=== PATIENT | female | born 1990 | race Caucasian/White ===

== ENCOUNTER 2018-09-28 13:04 | Emergency (ER) | payer OTHER, SELFPAY ==
[2018-09-28 13:05] VITALS: BP 165/81; PULSE 70; RESP 20; TEMP 36.9; O2SAT 97; BMI 37.4
[2018-09-28 13:29] LABS: Mucous, Urine 0 SEEN /hpf (<or=2+)
[2018-09-28] MEDS: Ondansetron 4 MG/2 ML Vial IV (13:31)
[2018-09-28] MEDS: 0.9% Normal Saline 1,000 ML 125 ML IV (13:31)
[2018-09-28] MEDS: Morphine 4 MG/ML Syringe IV (13:31)
[2018-09-28 13:32] VITALS: BP 137/82; PULSE 74; RESP 16; O2SAT 98
[2018-09-28 13:39] LABS: Absolute Neutrophil Count 9.1 X10^3/uL (2.0-7.7); Basophil# 0.02 X10^3/uL; Basophil% 0.2 % (0-1); Eosinophil# 0.14 X10^3/uL; Eosinophils% 1.2 % (0-5); Hematocrit 38.9 % (37-47); Hemoglobin 12.8 g/dl (12.0-15.0); Lymphocyte % 15.2 % (19-41); Mean Corp Hgb Conc 32.9 g/gl (32-36); Mean Corpuscular Hgb 27.9 pg (27.0-32.0); Mean Corpuscular Volume 84.7 fL (81-99); Mean Platelet Vol. 10.3 fl (6.2-12.0); Monocyte% 6.8 % (0-10); Neutrophil # 9.06 X10^3/uL (2.7-7.7); Neutrophil % 76.3 % (47-70); POSITIVE COUNT NO; POSITIVE DIFFERENTIAL NO; POSITIVE MORPHOLOGY NO; Platelet Count 188 K/mm3 (150-450); RBC Distribution Width CV 13.6 % (11.6-14.6); RBC Distribution Width SD 41.4 fl (35.1-43.9); Red Blood Count 4.59 M/mm3 (4.2-5.4); White Blood Count 11.9 K/mm3 (4.4-11.0)
[2018-09-28 13:42] LABS: Color, Urine Yellow (Yellow); Glucose, Dipstick Normal (Normal); Ketone-Dipstick Negative (Negative); Leukocyte Esterase-Dipstick 25 /ul (Negative); Nitrite-Dipstick Negative (Negative); Occult Blood-Urine 25 /ul (Negative); Protein-Dipstick 15 mg/dl (Negative); Urine Bilirubin Dipstick Negative (Negative); Urine Clarity Sl. Cloudy (Clear); Urine Urobilinogen Normal (Normal)
[2018-09-28 13:46] LABS: Anion Gap 10 (5-15); BUN 5 mg/dL (7-18); BUN/Creat Ratio 7.2 RATIO (10-20); Calcium,Total 8.6 mg/dL (8.5-10.1); Chloride 107 mmol/L (98-107); Creatinine, Serum 0.69 mg/dL (0.55-1.02); EST Glomerular Filtration Rate 108 mL/min (>60); Est Glom Filt Rate - Afr Amer 130 mL/min (>60); Estimated Creatinine Clearance 114.65 ml/min; Glucose 97 mg/dL (74-106); Potassium 3.6 mmol/L (3.5-5.1); Sodium Level 138 mmol/L (136-145)
[2018-09-28 13:47] LABS: Bacteria 1+ /hpf (None Seen); Red Blood Cells-Urine 0-5 SEEN /hpf (0-5); Squamous Epithelial Cells - UA 0-5 SEEN /hpf (5-10); White Blood Cells 0-5 SEEN /hpf (0-5)
[2018-09-28] MEDS: HYDROmorphone 1 MG/ML Syringe IV ×2 (14:10→14:46)
--- NOTE | 2018-09-28 14:28 | ED.DCSUM_ITS ---
- ER Visit Summary Date of Service: 09/28/18 Chief Complaint: [Flank pain] History of Present Illness: The patient is a 27 F [presents to the emergency department complaint of flank pain that started 2 hours ago. Patient states the pain came on suddenly and was severe. Patient did vomit with it. Currently rates it an 8 or 9 out of 10. Patient states that she is 19 weeks . Patient denies any vaginal bleeding. She continues to have nausea. Patient does not have a history of kidney stones. She denies any urinary symptoms. She denies any fever. She denies recent illness.] Physical Examination: [HEENT-PERRLA, EOMI. Cranial nerves II through XII grossly intact. TMs clear. Mucous membranes moist. No adenopathy. Patient standing against the bed and seems uncomfortable as I enter the room. Cardiovascular-regular rate and rhythm without murmur or ectopy Lungs-clear to auscultation, chest wall stable without crepitus or subcu emphysema Abdomen-normoactive bowel sounds, soft. Patient has some tenderness over right lower quadrant with some guarding. There is no rebound, rigidity, or perineal signs. Mild CVA tenderness on the right. Extremities-intact ?4, normal range of motion, normal pulses, atraumatic] Test Results: CBC with differential obtained showed a white count 11.9, hemoglobin 12.8, hematocrit 39, platelets 188. Chemistries unremarkable. Urinalysis showed 25 leukocyte esterase, 0-5 WBCs, 0-5 RBCs, +1 bacteria.] heart tones were 136. Emergency Department Course and Treatment: [Patient initially medicated with Zofran and morphine and she continued to have significant pain. Patient was given a milligram of Dilaudid. Patient continues to complain of pain.] Treatment Plan: [I discussed with patient that clinically I felt she is presenting with signs and symptoms of kidney stone however given her state at this point recommended against CT imaging given risk of radiation exposure to the unborn child. She understands that I will not be able to tell her definitively this size of the kidney stone or if she will be able to pass the stone on her own. Case was discussed with EXTRACTOR OPERATOR on-call Dr. Dolores Craig who will admit patient for symptomatic management and if this patient does not improve clinically may require further imaging such as possible CT scan to evaluate further. I do not suspect patient has acute appendicitis as this is more consistent with kidney stone presentation.] Disposition: [Admit] Impression: [Intractable flank pain-suspect kidney stone with colic] This note was generated with [employer] dictation software. It may contain incorrect words, spelling, and punctuation that were not noted in review of the chart prior to signing ED Disposition - Plan for ED Patient: Chief Complaint: Flank Pain Referrals: Care Physician,No Primary [Primary Care Provider] -
--- NOTE | 2018-09-28 14:30 | NURSING ---
WP OBS INTRACTABLE FLANK PAIN RACHEL
[2018-09-28 14:41] VITALS: BP 139/79; PULSE 86; RESP 18; O2SAT 97
== END 2018-09-28 14:54 | disposition short-term general hospital (02) ==
LOC: ED 13:47
PROVIDERS: Emergency Provider Emergency Medicine
DX: O26.892 Other specified pregnancy related conditions, second trimester (principal); R10.31 Right lower quadrant pain; Z3A.19 19 weeks gestation of pregnancy; Z87.442 Personal history of urinary calculi
CPT/HCPCS: 80048; 81001; 85025; 96361; 96374; 96375; 96376; 99282; J7030; A4216; J2405

== ENCOUNTER 2018-09-28 15:00 | Outpatient (CLI) | payer OTHER, SELFPAY ==
[2018-09-28 15:09] VITALS: BMI 37.4
--- NOTE | 2018-09-28 15:42 | PCM.HPOB.BLA ---
- Problem List (1) Microscopic hematuria Status: Acute (2) Flank pain, acute Status: Acute (3) 19 weeks gestation of Status: Chronic (4) Nausea and vomiting Status: Acute History and Physical Date of Admission: 09/28/18 Radha is a 27 y.o. G 2 P 1 who presents to [facility] ED with abrupt onsest approx 1pm of severe cramping flank pain, nausea. no h/o this type of pain in past. She is 18 6/7 wk EGA with LMP of 05-19-18 She had a prior C/S for FTP and plans to at with this . She was initially medicated with Zofran and Morphine in the ED, and continued with significant pain . Given 1 mg Dilaudid in ED also with continued pain and nausea. To OB dept for inpatient management, IV hydration and pain medications, antiemetics. ALLERGIES: Latex, Swelling and rash, Penicillin, Rash MEDICATIONS HISTORY: vitamin REVIEW OF SYSTEMS: GENERAL - Denies fever, or chills SKIN - Denies skin changes EYES - Denies visual changes EARS - Denies difficulty hearing NOSE - Denies nasal congestion or bleeding MOUTH - Denies sore throat or difficulty swallowing NECK - Denies pain or swelling RESPIRATORY - Denies shortness of breath or wheezing CARDIOVASCULAR - Denies palpitations or chest pain GASTROINTESTINAL - nausea MUSCULOSKELETAL - Denies joint or muscle pain NEUROLOGICAL - Denies localized numbness or weakness PSYCHIATRIC - Denies depression or anxiety ENDOCRINE - Denies heat or cold intolerance, weight loss or gain HEMATO-IMMUNOLOGIC - Denies excesive bleeding with cuts PAST HISTORY: Breast/Ovarian/Colon Cancers - Denies Infections - Chicken pox childhood Illnesses - allergies Accidents - no injuries of consequence History of Abnormal PAPS - Denies Hospitalizations - see surgery SURGICAL HISTORY: 1. 10/10/2012 MENSTRUAL HISTORY: LMP Known?- DefiniteAmount/Duration - 5 days, Regularity - Regular, Frequency - monthly days, LMP - 05/19/18, Age Onset Menarche - 10 PAST PREGNANCIES: Total Pregnancies - 2; Full Term Pregnancies - 1; Premature - 0; Abortions, Induced - 0; Abortions, Spontaneous - 0; Ectopics - 0; Multiple Births - 0; Living Children - 1 FAMILY HISTORY: Father - Ischemic heart disease; Father - Hypertension; SOCIAL HISTORY: Alcohol Use - drinks occasionally not while Smoking - used to smoke but quit Diet - balanced Diet Lifestyle - moderate stress lifestyle and Exercise - minimal Seat Belt Use - always Employer - [employer] ([place]) 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 Drug Use - denies use of street drugs Sexual Activity - Residence - lives with parents Hours Worked - 40 hours per week Spouse-Sig Other Name - Kenneth Wellington Spouse-Sig Other Occupation - [employer] -- [employer] Spouse-Sig Other Phone No - [phone] cell Children Name(s) - Richar(12) Control - PHYSICAL EXAMINATION BP- 139/79 Weight- 105.2 kg Height- 65.00 inch CONSTITUTIONAL - NAD, well nourished, and well developed SKIN - No rash, lesions, or ulcers HEENT - Normocephalic, PERRLA, EOMI NECK - no nodes, no nuchal rigidity and thyroid normal size and texture LYMPH NODES - Palpation of lymph nodes in neck and groins within normal limits LUNGS - CTA x2 without wheezes, crackles or rales CARDIAC - Regular rate and rhythm without rubs, murmurs, or gallops BREAST - no dominant masses, no tenderness, no axillary adenopathy, no nipple discharge and no skin changes ABDOMEN - Without hepatosplenomegaly, distention, masses, rebound, or guarding; normal bowel sounds, no hernias EXTREMITIES - No edema or calf tenderness NEUROLOGICAL - Cranial nerves II-XII grossly intact PSYCHIATRIC - A and O to time, place, person, mood and affect LABS: CBC WBC 11.9, hemoglobin 12.8, hematocrit 39, platelets 188. Chemistries unremarkable. Urinalysis showed 25 leukocyte esterase, 0-5 WBCs, 0-5 RBCs, +1 bacteria.] heart tones were 136. in ED Emergency Department Course and Treatment: [Patient initially ASSESSMENT: 1. Flank pain , colicky 2. 18 6/7 wk EGA 3. Microscopic hematuria PLAN BY DIAGNOSIS: 1. Flank pain , colicky Likely urelithiasis. 2. 18 6/7 wk EGA 3. Microscopic hematuria Admit for IV hydration and pain control Strain urine for stones Consider CT or sono of kidneys if persistent symptoms to better dx The visit was approximately 25 minutes in length with most of the time spent in discussion and counseling.
[2018-09-28] MEDS: Lactated Ringers 1,000 ML 500 ML IV (15:48)
--- NOTE | 2018-09-28 15:48 | HP.PCM_ITS ---
- Problem List (1) Microscopic hematuria Status: Acute (2) Flank pain, acute Status: Acute (3) 19 weeks gestation of Status: Chronic (4) Nausea and vomiting Status: Acute History and Physical Date of Admission: 09/28/18 Radha is a 27 y.o. G 2 P 1 who presents to [facility] ED with abrupt onsest approx 1pm of severe cramping flank pain, nausea. no h/o this type of pain in past. She is 18 6/7 wk EGA with LMP of 05-19-18 She had a prior C/S for FTP and plans to at with this . She was initially medicated with Zofran and Morphine in the ED, and continued with significant pain . Given 1 mg Dilaudid in ED also with continued pain and nausea. To OB dept for inpatient management, IV hydration and pain medications, antiemetics. ALLERGIES: Latex, Swelling and rash, Penicillin, Rash MEDICATIONS HISTORY: vitamin REVIEW OF SYSTEMS: GENERAL - Denies fever, or chills SKIN - Denies skin changes EYES - Denies visual changes EARS - Denies difficulty hearing NOSE - Denies nasal congestion or bleeding MOUTH - Denies sore throat or difficulty swallowing NECK - Denies pain or swelling RESPIRATORY - Denies shortness of breath or wheezing CARDIOVASCULAR - Denies palpitations or chest pain GASTROINTESTINAL - nausea MUSCULOSKELETAL - Denies joint or muscle pain NEUROLOGICAL - Denies localized numbness or weakness PSYCHIATRIC - Denies depression or anxiety ENDOCRINE - Denies heat or cold intolerance, weight loss or gain HEMATO-IMMUNOLOGIC - Denies excesive bleeding with cuts PAST HISTORY: Breast/Ovarian/Colon Cancers - Denies Infections - Chicken pox childhood Illnesses - allergies Accidents - no injuries of consequence History of Abnormal PAPS - Denies Hospitalizations - see surgery SURGICAL HISTORY: 1. 10/10/2012 MENSTRUAL HISTORY: LMP Known?- DefiniteAmount/Duration - 5 days, Regularity - Regular, Frequency - monthly days, LMP - 05/19/18, Age Onset Menarche - 10 PAST PREGNANCIES: Total Pregnancies - 2; Full Term Pregnancies - 1; Premature - 0; Abortions, Induced - 0; Abortions, Spontaneous - 0; Ectopics - 0; Multiple Births - 0; Living Children - 1 FAMILY HISTORY: Father - Ischemic heart disease; Father - Hypertension; SOCIAL HISTORY: Alcohol Use - drinks occasionally not while Smoking - used to smoke but quit Diet - balanced Diet Lifestyle - moderate stress lifestyle and Exercise - minimal Seat Belt Use - always 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 Drug Use - denies use of street drugs Sexual Activity - Residence - lives with parents Hours Worked - 40 hours per week Spouse-Sig Other Name - Kenneth Wellington Spouse-Sig Other Occupation - [employer] -- [employer] Spouse-Sig Other Phone No - [phone] cell Children Name(s) - Richar(12) Control - PHYSICAL EXAMINATION BP- 139/79 Weight- 105.2 kg Height- 65.00 inch CONSTITUTIONAL - NAD, well nourished, and well developed SKIN - No rash, lesions, or ulcers HEENT - Normocephalic, PERRLA, EOMI NECK - no nodes, no nuchal rigidity and thyroid normal size and texture LYMPH NODES - Palpation of lymph nodes in neck and groins within normal limits LUNGS - CTA x2 without wheezes, crackles or rales CARDIAC - Regular rate and rhythm without rubs, murmurs, or gallops BREAST - no dominant masses, no tenderness, no axillary adenopathy, no nipple discharge and no skin changes ABDOMEN - Without hepatosplenomegaly, distention, masses, rebound, or guarding; normal bowel sounds, no hernias EXTREMITIES - No edema or calf tenderness NEUROLOGICAL - Cranial nerves II-XII grossly intact PSYCHIATRIC - A and O to time, place, person, mood and affect LABS: CBC WBC 11.9, hemoglobin 12.8, hematocrit 39, platelets 188. Chemistries unremarkable. Urinalysis showed 25 leukocyte esterase, 0-5 WBCs, 0- 5 RBCs, +1 bacteria.] heart tones were 136. in ED Emergency Department Course and Treatment: [Patient initially ASSESSMENT: 1. Flank pain , colicky 2. 18 6/7 wk EGA 3. Microscopic hematuria PLAN BY DIAGNOSIS: 1. Flank pain , colicky Likely urelithiasis. 2. 18 6/7 wk EGA 3. Microscopic hematuria Admit for IV hydration and pain control Strain urine for stones Consider CT or sono of kidneys if persistent symptoms to better dx The visit was approximately 25 minutes in length with most of the time spent in discussion and counseling.
--- NOTE | 2018-09-28 16:07 | NURSING ---
FHT done with Doppler-145
[2018-09-28] MEDS: proMETHazine 25 MG/ML Syringe 12.5 MG IV (16:21)
[2018-09-28] MEDS: Lactated Ringers 1,000 ML 150 ML IV ×2 (17:42→23:08)
[2018-09-29] MEDS: Lactated Ringers 1,000 ML 150 ML IV (05:32)
--- NOTE | 2018-09-29 07:45 | PCM.PROGNOTE ---
Patient Problems: Active and Suspected Problems Microscopic hematuria (Acute) Flank pain, acute (Acute) Nausea and vomiting (Acute) Subjective: HD#2 No kidney stone noted on straining urine. States pain much better 3/10 last pain med taken at approx [place] Demerol. No other concerns voiced. has f/u appt in ofc in 3 d for 20 wk care and sono. - Physical Exam General: Alert, Oriented x3, Cooperative, No apparent distress HEENT: Atraumatic Neck: Supple Abdomen: Soft, Gravid - NO CVAT. No pain to percussion of lower back (where pain stated) Neurological: Cranial nerves II-XII grossly intact Psych/Mental Status: Normal Affect Weight: 105.2 kg Body Mass Index (BMI) 37.4 Intake and Output for Last 24 Hours 09/28/18 09/28/18 09/29/18 00:59 23:59 23:59 Intake Total 1158 / 1158 Output Total 1125 / 1125 Balance 33 / 33 Medical Necessity - Tobacco Use Smoking Status: Never smoker Assessment/Plan All Active Problems Microscopic hematuria (Acute) Flank pain, acute (Acute) Nausea and vomiting (Acute) HD#2 R flank pain suggestive of kidney stone. No imaging done at this point. Pain improved. Last Demerol at approx [place] No N/V Begin po OxyIR for severe pain prn. Reg diet. Home if pain controlled by OxyIR and tylenol. F/U in ofc as planned for next appt and sono, and to f/u on probable kidney stone pain. IF pain inc and not controlled on PO meds, consider CT and urologist consult.
--- NOTE | 2018-09-29 07:53 | PCM.DC ---
- Discharge Diagnoses Current Active Problems: Current Active and Chronic Problems Microscopic hematuria (Acute) Flank pain, acute (Acute) 19 weeks gestation of (Chronic) Nausea and vomiting (Acute) Reason(s) for Visit for Discharge Instructions: Left flank pain. Kidney stone. You will use the following diet at home:: No restrictions Discharge Activity: May not drive while taking narcotic pain medications., May Shower, May Take a Tub Bath May resume sexual activity in: No Restrictions Call your doctor if you observe: Uncontrolled pain Additional Instructions: Take Percocet (contains Tylenol) 1-2 tabs every 6 hr prn moderate to severe pain. Keep very well hydrated to avoid recurrent stones. Allergies/Adverse Reactions: Allergies latex Allergy (Verified 09/28/18 15:13) Swelling Penicillins Allergy (Verified 09/28/18 15:13) Rash Medications to take at Discharge Vits [Prenatabs FA ] 1 tablet PO DAILY 09/28/18 Oxycodone HCl/Acetaminophen [Percocet 5-325] 1 - 2 tablet PO Q4H PRN PRN 7 Days #20 tablet 09/29/18 The following prescriptions were given: Oxycodone HCl/Acetaminophen [Percocet 5-325] 1 - 2 tablet PO Q4H PRN PRN 7 Days #20 tablet PRN Reason: Mod-Severe Pain (4-09/03) Primary Care Physician: Care Physician,No Primary [Primary Care Provider] - Test Results: Test results from this visit will be discussed in further detail at your follow-up appointment, if applicable. Please Follow Up With: Myke Calvo MD - [phone] When: on 10/02/18 as planned Proposed Discharge Date: 09/29/18
--- NOTE | 2018-09-29 07:56 | DCINST_ITS ---
- Discharge Diagnoses Current Active Problems: Current Active and Chronic Problems Microscopic hematuria (Acute) Flank pain, acute (Acute) 19 weeks gestation of (Chronic) Nausea and vomiting (Acute) Reason(s) for Visit for Discharge Instructions: Left flank pain. Kidney stone. You will use the following diet at home:: No restrictions Discharge Activity: May not drive while taking narcotic pain medications., May Shower, May Take a Tub Bath May resume sexual activity in: No Restrictions Call your doctor if you observe: Uncontrolled pain Additional Instructions: Take Percocet (contains Tylenol) 1-2 tabs every 6 hr prn moderate to severe pain. Keep very well hydrated to avoid recurrent stones. Allergies/Adverse Reactions: Allergies latex Allergy (Verified 09/28/18 15:13) Swelling Penicillins Allergy (Verified 09/28/18 15:13) Rash Medications to take at Discharge Vits [Prenatabs FA ] 1 tablet PO DAILY 09/28/18 Oxycodone HCl/Acetaminophen [Percocet 5-325] 1 - 2 tablet PO Q4H PRN PRN 7 Days #20 tablet 09/29/18 The following prescriptions were given: Oxycodone HCl/Acetaminophen [Percocet 5-325] 1 - 2 tablet PO Q4H PRN PRN 7 Days #20 tablet PRN Reason: Mod-Severe Pain (4-09/03) Primary Care Physician: Care Physician,No Primary [Primary Care Provider] - Test Results: Test results from this visit will be discussed in further detail at your follow- up appointment, if applicable. Please Follow Up With: Myke Calvo MD - [phone] When: on 10/02/18 as planned Proposed Discharge Date: 09/29/18
[2018-09-29] MEDS: oxyCODONE 5 MG Tablet PO (08:50)
== END 2018-09-29 12:45 | disposition home or self-care (01) ==
LOC: WPOUT 15:09 → WP 09-30 08:03
PROVIDERS: Referring Provider Obstetrics & Gynecology; Visit Provider Obstetrics & Gynecology
DX: O26.892 Other specified pregnancy related conditions, second trimester (principal); R10.9 Unspecified abdominal pain; O21.9 Vomiting of pregnancy, unspecified; O99.89 Other specified diseases and conditions complicating pregnancy, childbirth and the puerperium; R31.29 Other microscopic hematuria; Z3A.19 19 weeks gestation of pregnancy; Z87.891 Personal history of nicotine dependence
CPT/HCPCS: 96361 ×19; 96374; 96375; 96376 ×2; 59050; 99218; J7120; A4216; G0378

== ENCOUNTER → 2018-11-27 15:06 | Outpatient (CLI) | payer OTHER, SELFPAY ==
[2018-11-27 16:11] LABS: Hematocrit 34.7 % (37-47); Hemoglobin 11.2 g/dl (12.0-15.0); Mean Corp Hgb Conc 32.3 g/gl (32-36); Mean Corpuscular Hgb 26.8 pg (27.0-32.0); Mean Platelet Vol. 10.2 fl (6.2-12.0); Platelet Count 183 K/mm3 (150-450); RBC Distribution Width CV 13.6 % (11.6-14.6); RBC Distribution Width SD 41.5 fl (35.1-43.9); Red Blood Count 4.18 M/mm3 (4.2-5.4); White Blood Count 11.4 K/mm3 (4.4-11.0)
[2018-11-27 16:18] LABS: Scan Indicated on CBC? Y/N NO
[2018-11-27 16:39] LABS: Glucose Challenge Gest 1H 50g 117 mg/dL (70-140)
== END ==
PROVIDERS: Visit Provider Obstetrics & Gynecology
DX: Z34.83 Encounter for supervision of other normal pregnancy, third trimester (principal)
CPT/HCPCS: 36415; 82950; 85027

== ENCOUNTER 2018-12-30 14:59 | Observation (INO) | payer OTHER, SELFPAY ==
[2018-12-30] VITALS (10 sets, daily range): BP systolic 119–150; BP diastolic 61–86; PULSE 122–141; RESP 20–27; TEMP 37.1–37.8; O2SAT 97–100; BMI 44.6; BMI 44.0; BMI 43.8
--- NOTE | 2018-12-30 15:35 | EKG12_ITS ---
Test Reason : FLU Blood Pressure : / mmHG Vent. Rate : 126 BPM Atrial Rate : 126 BPM P-R Int : 132 ms QRS Dur : 072 ms QT Int : 324 ms P-R-T Axes : 034 051 001 degrees QTc Int : 469 ms Sinus tachycardia Nonspecific T wave abnormality Abnormal ECG Confirmed by SID KENNEDY, MONI ([id number]), content editor KENDRICK VALENTE ([id number]) on 01/05/2019 9:51:20 AM Referred By: YESENIA Confirmed By:MONI LAU MD
--- NOTE | 2018-12-30 15:39 | ED.VISSUMM ---
- ER Visit Summary Date of Service: 12/30/18 Chief Complaint: Influenza History of Present Illness: The patient is a 28 F who is 32 weeks who presents for evaluation after being diagnosed with influenza at urgent care. Patient states 3 days ago she developed fever and achiness. The following day she was feeling somewhat better, and then yesterday she began having fever again, developed cough, shortness of breath and headache. This morning at work she was given IV fluids and sent home. She was given a total of 1500 cc. She followed up at urgent care and was diagnosed with the flu. She was prescribed Tamiflu and last took Tylenol 2 hours ago. 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 Patient currently complains of cough, achiness, shortness of breath, congestion and rhinorrhea, headache. She denies nausea, diarrhea or urinary symptoms. Physical Examination: Vital signs: afebrile, tachycardic, normotensive, no hypoxia on room air General: well nourished, well developed, in no distress Skin: warm, dry, no rash, no pallor HEENT: normocephalic and atraumatic; PERRL, EOMI, moist mucous membranes Cardiovascular: Tachycardic rate and rhythm without murmurs, no peripheral edema, 2+ pulses all distal extremities Respiratory: mild tachypnea, no increased work of breathing, lungs are clear to auscultation bilaterally, no rales, rhonchi or wheezing Abdominal: Abdomen is soft, gravid, nontender with normoactive bowel sounds, no guarding or rebound, no masses MSK: Moves all extremities, no deformities, normal strength Neuro: Awake and alert, oriented ?4. No facial droop, sensation and motor function intact and symmetric Test Results: Abnormal Lab Results 12/30/18 12/30/18 12/30/18 15:15 16:00 16:00 WBC 6.1 RBC 4.37 Hgb 11.6 L Hct 36.7 L MCV 84.0 MCH 26.5 L MCHC 31.6 L RDW 15.1 H RDW Differential 46.3 H Plt Count 155 MPV 10.3 Immature Gran % (Auto) 0.800 Neut % (Auto) 79.1 H Lymph % (Auto) 9.9 L [place] % (Auto) 10.2 H Eos % (Auto) 0.0 Baso % (Auto) 0.0 Absolute Neuts (auto) 4.8 Absolute Lymphs (auto) 0.60 L Total Counted Not Reportable Differential Comment SEE COMMENT Platelet Estimate ADEQUATE RBC Morphology NORM C+C PT 13.2 INR 1.0 APTT 35.1 Sodium Potassium Chloride Carbon Dioxide Anion Gap BUN Creatinine Estim Creat Clear Calc Est GFR (MDRD) Af Amer Est GFR (MDRD) Non-Af BUN/Creatinine Ratio Glucose Lactic Acid Calcium Total Bilirubin AST ALT Alkaline Phosphatase Troponin I Total Protein Albumin Globulin Albumin/Globulin Ratio Urine Color Yellow Urine Clarity Clear Urine pH 6.0 Ur Specific [place] 1.020 Urine Protein 30 H Urine Glucose (UA) Normal Urine Ketones 150 H Urine Occult Blood 10 H Urine Nitrite Negative Urine Bilirubin Negative Urine Urobilinogen 8 H Ur Leukocyte Esterase Negative Urine RBC 0-5 SEEN Urine WBC 0 SEEN Ur Squamous Epith Cells 0-5 SEEN Urine Bacteria 0 SEEN Urine Mucus RARE 12/30/18 12/30/18 16:00 16:00 WBC RBC Hgb Hct MCV MCH MCHC RDW RDW Differential Plt Count MPV Immature Gran % (Auto) Neut % (Auto) Lymph % (Auto) [place] % (Auto) Eos % (Auto) Baso % (Auto) Absolute Neuts (auto) Absolute Lymphs (auto) Total Counted Differential Comment Platelet Estimate RBC Morphology PT INR APTT Sodium 135 L Potassium 3.6 Chloride 106 Carbon Dioxide 19.0 L Anion Gap 10 BUN 4 L Creatinine 0.54 L Estim Creat Clear Calc 139.57 Est GFR (MDRD) Af Amer 173 Est GFR (MDRD) Non-Af 143 BUN/Creatinine Ratio 7.4 L Glucose 83 Lactic Acid 1.1 Calcium 8.0 L Total Bilirubin 0.70 AST 149 H ALT 138 H Alkaline Phosphatase 100 Troponin I < 0.015 Total Protein 6.6 Albumin 2.8 L Globulin 3.8 Albumin/Globulin Ratio 0.7 L Urine Color Urine Clarity Urine pH Ur Specific [place] Urine Protein Urine Glucose (UA) Urine Ketones Urine Occult Blood Urine Nitrite Urine Bilirubin Urine Urobilinogen Ur Leukocyte Esterase Urine RBC Urine WBC Ur Squamous Epith Cells Urine Bacteria Urine Mucus Clinical Impression(s) from Imaging Studies Chest X-Ray 12/30/18 16:30 IMPRESSION: Peribronchial thickening consider atypical infiltrates possible bronchitis. Electronically Signed: Ivana Meng MD at 16:46 EST Tel , Service support , Medications Given Lactated Ringer's () 1,000 mls @ 250 mls/hr IV .Q4H SAKINA Last Admin: 12/30/18 15:50 Dose: 250 mls/hr Azithromycin 500 mg/ Dextrose 255 mls @ 250 mls/hr IV X1 ONE Stop: 12/30/18 19:06 Last Admin: 12/30/18 18:41 Dose: 250 mls/hr Ceftriaxone Sodium (Rocephin) 1 gm in 50 mls @ 100 mls/hr IV X1 ONE Stop: 12/30/18 19:24 Non-Formulary Medication (Loratadine [Claritin]) 10 mg PO DAILY SAKINA Non-Formulary Medication (Oseltamivir Phosphate [Tamiflu]) 75 mg PO DAILY SAKINA Multivit/Folic Acid/Iron (Prenatabs Fa) 1 tablet PO DAILY SAKINA Discontinued Medications Albuterol Sulfate (Ventolin Aerosols) 2.5 mg INHALATION X1 ONE Stop: 12/30/18 18:06 Last Admin: 12/30/18 18:19 Dose: 2.5 mg Emergency Department Course and Treatment: Patient presents for tachycardia and shortness of breath after being diagnosed with influenza today. Patient took her dose of Tamiflu from the prescription she filled this afternoon. Patient was given IV fluids for hydration. EKG showed a sinus tachycardia with nonspecific T wave inversions and no other ischemic changes. CBC showed no significant leukocytosis. No renal dysfunction or electrolyte derangements, however patient had mild elevation of transaminases. Urine was positive for ketones. No asymptomatic bacteriuria noted. Chest x-ray was concerning for possible atypical pneumonia versus bronchitis. Given patient's frequent moist cough, her complaint of shortness of breath, her persistent tachycardia despite IV fluids, and her known diagnosis of influenza, patient was discussed with OB Dr. Craig, who will admit the patient for further treatment of her symptoms and for monitoring. heart rate in the emergency department was 148. Because of the concern for the possible secondary bacterial pneumonia, patient was started on empiric antibiotic coverage with Rocephin and azithromycin. She was also given an albuterol treatment for shortness of breath. Treatment Plan: [] Disposition: [] Impression: Influenza, atypical pneumonia, shortness of breath, third trimester , transaminitis This note was generated with [employer] dictation software. It may contain incorrect words, spelling, and punctuation that were not noted in review of the chart prior to signing ED Disposition - Plan for ED Patient: Disposition: Acute Care [facility]
--- NOTE | 2018-12-30 15:42 | NURSING ---
NO OLD EKGS
[2018-12-30] MEDS: Lactated Ringers 1,000 ML 250 ML IV (15:50)
[2018-12-30 16:11] LABS: Bacteria 0 SEEN /hpf (None Seen); White Blood Cells 0 SEEN /hpf (0-5)
[2018-12-30 16:18] LABS: Color, Urine Yellow (Yellow); Glucose, Dipstick Normal (Normal); Leukocyte Esterase-Dipstick Negative /ul (Negative); Nitrite-Dipstick Negative (Negative); Occult Blood-Urine 10 /ul (Negative); Protein-Dipstick 30 mg/dl (Negative); Urine Bilirubin Dipstick Negative (Negative); Urine Clarity Clear (Clear); Urine Urobilinogen 8 mg/dl (Normal)
[2018-12-30 16:23] LABS: Ketone-Dipstick 150 mg/dl (Negative)
--- NOTE | 2018-12-30 16:23 | ED.RN ---
1530-dr. castillo aware that pt triggered sepsis protocol.
[2018-12-30 16:25] LABS: Mucous, Urine RARE /hpf (<or=2+); Red Blood Cells-Urine 0-5 SEEN /hpf (0-5); Squamous Epithelial Cells - UA 0-5 SEEN /hpf (5-10)
--- NOTE | 2018-12-30 16:30 | RAD_ITS ---
STUDY: X-RAY CHEST REASON FOR EXAM: Female, 28 years old. Fever flu TECHNIQUE: PA and lateral views of the chest. COMPARISON: None. FINDINGS: Interstitial markings are mildly prominent in the perihilar distribution. There is peribronchial thickening suggested on the lateral view. There is no demonstrated pleural abnormality. Normal size heart. Normal mediastinum and jose alejandro. Normal visualized pulmonary arteries. Normal visualized aortic arch and descending thoracic aorta. Normal visualized thoracic spine. Normal visualized ribs, clavicles, and shoulders. There is no demonstrated abnormality of the visualized soft tissue structures of the upper abdomen. RAD/Chest PA and Lateral IMPRESSION: Peribronchial thickening consider atypical infiltrates possible bronchitis. Electronically Signed: Ivana Meng MD at 16:46 EST Tel , Service support ,
[2018-12-30 16:32] LABS: Absolute Neutrophil Count 4.8 X10^3/uL (2.0-7.7); Hematocrit 36.7 % (37-47); Hemoglobin 11.6 g/dl (12.0-15.0); Lymphocyte % 9.9 % (19-41); Mean Corp Hgb Conc 31.6 g/gl (32-36); Mean Corpuscular Hgb 26.5 pg (27.0-32.0); Mean Platelet Vol. 10.3 fl (6.2-12.0); Monocyte# 0.62 X10^3/uL; Monocyte% 10.2 % (0-10); Neutrophil % 79.1 % (47-70); Platelet Count 155 K/mm3 (150-450); RBC Distribution Width CV 15.1 % (11.6-14.6); RBC Distribution Width SD 46.3 fl (35.1-43.9); Red Blood Count 4.37 M/mm3 (4.2-5.4); White Blood Count 6.1 K/mm3 (4.4-11.0)
[2018-12-30 16:37] LABS: ALB/GLOB Ratio 0.7 RATIO (0.9-2.4); AST(SGOT) 149 U/L (15-37); Alanine Aminotransfer ALT/SGPT 138 U/L (13-56); Albumin, Serum 2.8 g/dL (3.2-5.0); Alkaline Phosphatase 100 U/L (45-117); Anion Gap 10 (5-15); BUN 4 mg/dL (7-18); BUN/Creat Ratio 7.4 RATIO (10-20); Chloride 106 mmol/L (98-107); Creatinine, Serum 0.54 mg/dL (0.55-1.02); EST Glomerular Filtration Rate 143 mL/min (>60); Est Glom Filt Rate - Afr Amer 173 mL/min (>60); Estimated Creatinine Clearance 139.57 ml/min; Globulin 3.8 g/dL (2.2-4.2); Glucose 83 mg/dL (74-106); Potassium 3.6 mmol/L (3.5-5.1); Protein, Total 6.6 g/dL (6.4-8.2); Sodium Level 135 mmol/L (136-145)
[2018-12-30 16:39] LABS: Lactic Acid 1.1 mmol/L (0.4-2.0)
[2018-12-30 16:41] LABS: Differential Indicated SCAN CRITERIA MET; POSITIVE COUNT NO; POSITIVE DIFFERENTIAL YES; POSITIVE MORPHOLOGY NO
[2018-12-30 16:46] LABS: Prothrombin Time (Protime)PT. 13.2 SECONDS (11.7-14.9)
[2018-12-30 16:47] LABS: Partial Thromboplast Time 35.1 Seconds (24.1-36.2)
[2018-12-30 18:02] LABS: Platelet Estimate ADEQUATE (ADEQ); Red Cell Morphology NORM C+C NORMAL (NORM C&C)
--- NOTE | 2018-12-30 18:09 | NURSING ---
MED SURG BENEKOS OBS INFLUENZA, SOB, TRANSAMINITIS, PREG 3RD TRIMESTER
[2018-12-30] MEDS: Albuterol 2.5 MG/3 ML VIAL.NEB. INHALATION (18:19)
--- NOTE | 2018-12-30 18:50 | NURSING ---
Pt ambulates to bathroom and has emesis x1. Pt reports nausea better and now back in bed.
--- NOTE | 2018-12-30 19:57 | NURSING ---
Called OB & talked to Kinsey about the non stress test ordered by Dr. Craig for this pt. Kinsey explained that this is approximately a 30 minute test. She is going to talk to Dr. Craig and clarify if she wants heart tones or the non stress test.
[2018-12-30] MEDS: Ceftriaxone 1 GM/50 ML BAG IV (20:30)
--- NOTE | 2018-12-30 20:34 | NURSING ---
Carey ROSS here from OB to perform the test.
[2018-12-30] MEDS: Lactated Ringers 1,000 ML 125 ML IV (20:38)
--- NOTE | 2018-12-30 20:38 | PCM.HPOB.BLA ---
History and Physical Date of Admission: 12/30/18 12/30/2018 Name: RADHA WELLINGTON Age: 28 Date of : 1990 HISTORY OF PRESENT ILLNESS: On 12/30/2018, Radha Wellington, a 28 year old female 1 0 0 0 1, presented for: Radha presents to emergency dept today for evaluation of well being as maternal heart rate was 120-130s She was diagnosed with Influenza A today and given an RX for Tamifu by an urgent care clinic. She has had a fever for 4 days and is now 100.8. She is 32 1/7 wk EGA today. She has also had a sore throat, and congestion. Symptoms started on 12/27/18. Went to get care today. Current symptoms include: cough, achiness, shortness of breath, congestion and rhinorrhea, headache. ALLERGIES: Latex, Swelling and rash, Penicillin, Rash, Latex, Edema, Penicillins and Hives and/or rash MEDICATIONS HISTORY: Patient is also takin. Claritin 10 mg Tablet, 1 po, prn allergies REVIEW OF SYSTEMS: GENERAL - fever, chills SKIN - Denies skin changes EYES - Denies visual changes EARS - Denies difficulty hearing NOSE - Denies nasal congestion or bleeding MOUTH - Denies sore throat or difficulty swallowing NECK - Denies pain or swelling RESPIRATORY - short of breath CARDIOVASCULAR - Denies palpitations or chest pain GASTROINTESTINAL - Denies nausea, vomiting, diarrhea, constipation GENITOURINARY - Denies dysuria, frequency of urination, incontinence of urine MUSCULOSKELETAL - myalgia NEUROLOGICAL - Denies localized numbness or weakness PSYCHIATRIC - Denies depression or anxiety ENDOCRINE - Denies heat or cold intolerance, weight loss or gain HEMATO-IMMUNOLOGIC - Denies excesive bleeding with cuts PAST HISTORY: Breast/Ovarian/Colon Cancers - Denies Infections - Chicken pox childhood Illnesses - allergies Accidents - no injuries of consequence History of Abnormal PAPS - Denies Hospitalizations - see surgery SURGICAL HISTORY: 1. 10/10/2012 MENSTRUAL HISTORY: LMP Known?- DefiniteAmount/Duration - 5 days, Regularity - Regular, Frequency - monthly days, LMP - 05/19/18, Age Onset Menarche - 10 PAST PREGNANCIES: Total Pregnancies - 2; Full Term Pregnancies - 1; Premature - 0; Abortions, Induced - 0; Abortions, Spontaneous - 0; Ectopics - 0; Multiple Births - 0; Living Children - 1 FAMILY HISTORY (OLD): Father: Heart Disease and Hypertension. 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 CBC wnl. LFTs elevated. UA negative for bacteria. Ketones and protein noted. SpGr 1.020 Pulse ox 99% on RA. VITALS: T max 100.1 deg RR 22-24. BPs 146/84 and 129/63. Pulse 120s to 133 ASSESSMENT: 1. Hemophilus Influenzae Infection, Unspecified Site 2. Tachycardia, Unspecified PLAN BY DIAGNOSIS: 1. Hemophilus Influenzae Infection, Unspecified Site, Tachycardia, Unspecified and 32 1/7 wk EGA , Bronchitis. Pt to urgent care earlier in day, dx with influenza A and given RX for Tamiflu.Tachycardia noted. SOB. Sent in to [facility] by urgent care for further evaluation of maternal and well being. Plan NST daily Chest discomfort, SOB and tachycardia noted despite IV fluid given earlier. Admit for supportive care, observation Inhaler prn. Tamiflu to continue. O2 prn. Blood cultures and urine culture sent. 2. Possible Bronchitis Azithromycin 500 mg daily and Rocephin 1 gm IV daily 3. Elevated liver transaminases Repeat labs in am.
--- NOTE | 2018-12-30 20:45 | HP.PCM_ITS ---
History and Physical Date of Admission: 12/30/18 12/30/2018 Name: RADHA WELLINGTON Age: 28 Date of : 1990 HISTORY OF PRESENT ILLNESS: On 12/30/2018, Radha Wellington, a 28 year old female 1 0 0 0 1, presented for: Radha presents to emergency dept today for evaluation of well being as maternal heart rate was 120-130s She was diagnosed with Influenza A today and given an RX for Tamifu by an urgent care clinic. She has had a fever for 4 days and is now 100.8. She is 32 1/7 wk EGA today. She has also had a sore throat, and congestion. Symptoms started on 12/27/18. Went to get care today. Current symptoms include: cough, achiness, shortness of breath, congestion and rhinorrhea, headache. ALLERGIES: Latex, Swelling and rash, Penicillin, Rash, Latex, Edema, Penicillins and Hives and/or rash MEDICATIONS HISTORY: Patient is also takin. Claritin 10 mg Tablet, 1 po, prn allergies REVIEW OF SYSTEMS: GENERAL - fever, chills SKIN - Denies skin changes EYES - Denies visual changes EARS - Denies difficulty hearing NOSE - Denies nasal congestion or bleeding MOUTH - Denies sore throat or difficulty swallowing NECK - Denies pain or swelling RESPIRATORY - short of breath CARDIOVASCULAR - Denies palpitations or chest pain GASTROINTESTINAL - Denies nausea, vomiting, diarrhea, constipation GENITOURINARY - Denies dysuria, frequency of urination, incontinence of urine MUSCULOSKELETAL - myalgia NEUROLOGICAL - Denies localized numbness or weakness PSYCHIATRIC - Denies depression or anxiety ENDOCRINE - Denies heat or cold intolerance, weight loss or gain HEMATO-IMMUNOLOGIC - Denies excesive bleeding with cuts PAST HISTORY: Breast/Ovarian/Colon Cancers - Denies Infections - Chicken pox childhood Illnesses - allergies Accidents - no injuries of consequence History of Abnormal PAPS - Denies Hospitalizations - see surgery SURGICAL HISTORY: 1. 10/10/2012 MENSTRUAL HISTORY: LMP Known?- DefiniteAmount/Duration - 5 days, Regularity - Regular, Frequency - monthly days, LMP - 05/19/18, Age Onset Menarche - 10 PAST PREGNANCIES: Total Pregnancies - 2; Full Term Pregnancies - 1; Premature - 0; Abortions, Induced - 0; Abortions, Spontaneous - 0; Ectopics - 0; Multiple Births - 0; Living Children - 1 FAMILY HISTORY (OLD): Father: Heart Disease and Hypertension. 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 CBC wnl. LFTs elevated. UA negative for bacteria. Ketones and protein noted. SpGr 1.020 Pulse ox 99% on RA. VITALS: T max 100.1 deg RR 22-24. BPs 146/84 and 129/63. Pulse 120s to 133 ASSESSMENT: 1. Hemophilus Influenzae Infection, Unspecified Site 2. Tachycardia, Unspecified PLAN BY DIAGNOSIS: 1. Hemophilus Influenzae Infection, Unspecified Site, Tachycardia, Unspecified and 32 1/7 wk EGA , Bronchitis. Pt to urgent care earlier in day, dx with influenza A and given RX for Tamiflu.Tachycardia noted. SOB. Sent in to [facility] by urgent care for further evaluation of maternal and well being. Plan NST daily Chest discomfort, SOB and tachycardia noted despite IV fluid given earlier. Admit for supportive care, observation Inhaler prn. Tamiflu to continue. O2 prn. Blood cultures and urine culture sent. 2. Possible Bronchitis Azithromycin 500 mg daily and Rocephin 1 gm IV daily 3. Elevated liver transaminases Repeat labs in am.
--- NOTE | 2018-12-30 21:23 | NURSING ---
2039 NST started Pt has a temp of 99.4 bp 120/56 p 125 via monitor and pulse ox 95% on room air Baseline fhr 160 with moderate variability with 15x15 accels or greater. 2049 pt coughing and fhr went as high as 185 at 2101 fhr baseline returned to 160 moderate variability continues, pt denies contractions. 2113 T99.4 bp 124/59 pt's heart rate 126 and pulse ox on room air at 95% this update was called to
[2018-12-30] MEDS: Oseltamivir Phosphate 75 MG Capsule PO (22:47)
[2018-12-31] VITALS (8 sets, daily range): BP systolic 123–131; BP diastolic 59–79; PULSE 104–113; RESP 16–24; TEMP 36.7–37.4; O2SAT 96–97
[2018-12-31] MEDS: Lactated Ringers 1,000 ML 125 ML IV ×2 (04:30→16:58)
[2018-12-31 06:15] LABS: AST(SGOT) 87 U/L (15-37); Alanine Aminotransfer ALT/SGPT 112 U/L (13-56); Albumin, Serum 2.4 g/dL (3.2-5.0); Alkaline Phosphatase 89 U/L (45-117); Bilirubin, Direct 0.26 mg/dL (0.00-0.30); Globulin 3.5 g/dL (2.2-4.2); Protein, Total 5.9 g/dL (6.4-8.2)
--- NOTE | 2018-12-31 08:24 | PN.OBGYN_ITS ---
Subjective: HD # 2 32 2/7 wk EGA influenza A Elevated transaminases Admitted last pm for inpt management of flu . States feeling a little better. no nausea and thinks that was due to Tamiflu on empty stomach. States less SOB today but Inc SOB with any movement out of bed. Objective: NST last PM : Good variability. accels noted. - Physical Exam General: Alert, Oriented x3, Cooperative - cough noted. HEENT: Atraumatic Neck: Supple Abdomen: Gravid Skin: No rashes Neurological: Cranial nerves II-XII grossly intact Psych/Mental Status: Normal Affect Vital Signs Temp Pulse Resp BP Pulse Ox 99.3 F H 109 H 24 H 126/79 H 97 12/31/18 02:14 12/31/18 02:14 12/31/18 02:14 12/31/18 02:14 12/31/18 02:14 Oxygen Delivery Method Room Air Weight: 119.5 kg Body Mass Index (BMI) 43.8 Intake and Output for Last 24 Hours 12/29/18 12/30/18 12/31/18 23:59 23:59 23:59 Intake Total 2015 Output Total 1500 / 1500 Balance - 516 / 516 Laboratory Tests Past 24 Hrs 12/30/18 12/30/18 12/30/18 15:15 16:00 16:00 WBC 6.1 RBC 4.37 Hgb 11.6 L Hct 36.7 L MCV 84.0 MCH 26.5 L MCHC 31.6 L RDW 15.1 H RDW Differential 46.3 H Plt Count 155 MPV 10.3 Immature Gran % (Auto) 0.800 Neut % (Auto) 79.1 H Lymph % (Auto) 9.9 L [place] % (Auto) 10.2 H Eos % (Auto) 0.0 Baso % (Auto) 0.0 Absolute Neuts (auto) 4.8 Absolute Lymphs (auto) 0.60 L Total Counted Not Reportable Differential Comment SEE COMMENT Platelet Estimate ADEQUATE RBC Morphology NORM C+C PT 13.2 INR 1.0 APTT 35.1 Sodium Potassium Chloride Carbon Dioxide Anion Gap BUN Creatinine Estim Creat Clear Calc Est GFR (MDRD) Af Amer Est GFR (MDRD) Non-Af BUN/Creatinine Ratio Glucose Lactic Acid Calcium Total Bilirubin Direct Bilirubin AST ALT Alkaline Phosphatase Troponin I Total Protein Albumin Globulin Albumin/Globulin Ratio Urine Color Yellow Urine Clarity Clear Urine pH 6.0 Ur Specific [place] 1.020 Urine Protein 30 H Urine Glucose (UA) Normal Urine Ketones 150 H Urine Occult Blood 10 H Urine Nitrite Negative Urine Bilirubin Negative Urine Urobilinogen 8 H Ur Leukocyte Esterase Negative Urine RBC 0-5 SEEN Urine WBC 0 SEEN Ur Squamous Epith Cells 0-5 SEEN Urine Bacteria 0 SEEN Urine Mucus RARE 12/30/18 12/30/18 12/31/18 16:00 16:00 05:34 WBC RBC Hgb Hct MCV MCH MCHC RDW RDW Differential Plt Count MPV Immature Gran % (Auto) Neut % (Auto) Lymph % (Auto) [place] % (Auto) Eos % (Auto) Baso % (Auto) Absolute Neuts (auto) Absolute Lymphs (auto) Total Counted Differential Comment Platelet Estimate RBC Morphology PT INR APTT Sodium 135 L Potassium 3.6 Chloride 106 Carbon Dioxide 19.0 L Anion Gap 10 BUN 4 L Creatinine 0.54 L Estim Creat Clear Calc 139.57 Est GFR (MDRD) Af Amer 173 Est GFR (MDRD) Non-Af 143 BUN/Creatinine Ratio 7.4 L Glucose 83 Lactic Acid 1.1 Calcium 8.0 L Total Bilirubin 0.70 0.60 Direct Bilirubin 0.26 AST 149 H 87 H ALT 138 H 112 H Alkaline Phosphatase 100 89 Troponin I < 0.015 Total Protein 6.6 5.9 L Albumin 2.8 L 2.4 L Globulin 3.8 3.5 Albumin/Globulin Ratio 0.7 L Urine Color Urine Clarity Urine pH Ur Specific [place] Urine Protein Urine Glucose (UA) Urine Ketones Urine Occult Blood Urine Nitrite Urine Bilirubin Urine Urobilinogen Ur Leukocyte Esterase Urine RBC Urine WBC Ur Squamous Epith Cells Urine Bacteria Urine Mucus Medical Necessity - Tobacco Use Smoking Status: Former smoker Tobacco Use: Cigarettes Assessment/Plan All Active Problems Microscopic hematuria (Acute) Flank pain, acute (Acute) Nausea and vomiting (Acute) 32 2/7 wk EGA Influenza A -- less SOB at rest today. SOB with ambulation. Continue inpatient mangagement for now, supportive care. May S/L IV if yamil po well. -- continue inhalers prn -- continue Ceftriaxone 1 mg IV daily, Azithromycin 500 mg IV or PO daily Elevated transaminases -- repeat labs this am show downward trend Continue hospital stay
--- NOTE | 2018-12-31 09:44 | NURSING ---
[id number] Ordered NST performed with FHR heard in LLQ. Pt. reports movement WNL and denies contractions. BP 121/57, P106, R18, pulse ox 95% on room air. Baseline FHR 145 bpm with mod. variability and 15 x 15 accels. noted. No decels. movement noted per pt. Reactive NST. Pt. off monitor and tracing viewed per Dr. Calvo on OB unit.
[2018-12-31] MEDS: Oseltamivir Phosphate 75 MG Capsule PO ×2 (10:52→21:58)
[2018-12-31] MEDS: Loratadine 10 MG Tablet PO (10:52)
[2018-12-31] MEDS: Prenatal Vits Tablet 1 TABLET PO (11:02)
[2018-12-31] MEDS: Albuterol 2.5 MG/3 ML VIAL.NEB. INHALATION (11:10)
[2018-12-31] MEDS: 0.9% NaCl Peripheral Flush Adult/Peds IV ×3 (16:58→23:39)
--- NOTE | 2018-12-31 17:31 | CASEMGMT ---
VANDANA QUIROZ CHART REVIEW: Admitted with Flu, tachycardia, Chest discomfort, . Pt lives with her , independent @ home. Works full-time. Pt is [address] Craig. Preferred pharmacy is [facility] in [place]. No PCP. CM to provide pt with list of local PCP's In-Network with [facility]. Disposition Plan: Home Fatou RIOS RN, CM
[2018-12-31] MEDS: Azithromycin 250 MG Tablet 500 MG PO (21:58)
[2018-12-31] MEDS: Ceftriaxone 1 GM/50 ML BAG IV (21:58)
[2019-01-01 02:30] VITALS: BP 116/62; PULSE 96; RESP 20; TEMP 36.6; O2SAT 96
[2019-01-01 02:32] VITALS: O2SAT 96
[2019-01-01] MEDS: Lactated Ringers 1,000 ML 125 ML IV ×2 (02:32→10:18)
--- NOTE | 2019-01-01 04:10 | NURSING ---
NST performed per order. FHR located in LLQ of abd. Pt reports movement, denies any contractions or pain. Vital signs : BP 121/62, HR 100, Resp 16. Baseline FHR 135 with moderate variability, 15x15 accels noted, no decelerations noted, reactive NST.
[2019-01-01 09:05] VITALS: BP 114/66; PULSE 95; RESP 20; TEMP 36.7; O2SAT 97
--- NOTE | 2019-01-01 09:05 | PCM.PN.OB ---
Subjective: Patient without complaints. Tolerating diet well. Good movement. Feeling much better. - Physical Exam General: Oriented x3, No apparent distress Lungs: Clear to auscultation, No rhonchi, No wheeze, No rales Cardiovascular: Regular rate, Regular Rhythm, No murmurs Vital Signs AF, VSS for greater than 24 hours Temp Pulse Resp BP Pulse Ox 97.8 F 96 20 H 116/62 96 01/01/19 02:30 01/01/19 02:30 01/01/19 02:30 01/01/19 02:30 01/01/19 02:32 Oxygen Delivery Method Room Air Weight: 263 lb 7.238 oz Body Mass Index (BMI) 43.8 Intake and Output for Last 24 Hours 12/30/18 12/31/18 01/01/19 23:59 23:59 23:59 Intake Total 2759 / 2759 2355 / 2355 Output Total 2800 / 2800 1400 / 1400 Balance -1 / -1 -41 / -41 955 / 955 Medical Necessity - Tobacco Use Smoking Status: Former smoker Tobacco Use: Cigarettes Assessment/Plan All Active Problems Microscopic hematuria (Acute) Flank pain, acute (Acute) Nausea and vomiting (Acute) Antepartum patient with flu, dehydration, nausea and vomiting nearly resolved. Responded well to IV hydration, IV antibiotics, and Tamiflu. No fevers for greater than 24 hours and feeling much better. Will release to home with prescription for Tamiflu and 3 additional days of azithromycin. Patient already has appointment next week in the office for follow-up.
--- NOTE | 2019-01-01 09:09 | PCM.DC ---
You will use the following diet at home:: No restrictions Discharge Activity: Return to Normal Activity, May Shower, May Take a Tub Bath May resume sexual activity in: No Restrictions Weight Bearing Status: Weight bearing as tolerated Call your doctor if you observe: Fever of 101 or Higher, Inability to urinate, Inability to have a bowel movement Allergies/Adverse Reactions: Allergies latex Allergy (Verified 12/30/18 15:02) Swelling Penicillins Allergy (Verified 12/30/18 15:02) Rash Medications to take at Discharge Vits [Prenatabs FA ] 1 tablet PO DAILY 09/28/18 Loratadine [Claritin] 10 mg PO DAILY 12/30/18 Oseltamivir Phosphate [Tamiflu] 75 mg PO DAILY 12/30/18 Azithromycin 250 mg PO DAILY #3 tab 01/01/19 The following prescriptions were given: Azithromycin 250 mg PO DAILY #3 tab Primary Care Physician: Care Physician,No Primary [Primary Care Provider] - Test Results: Test results from this visit will be discussed in further detail at your follow-up appointment, if applicable. Please Follow Up With: Myke Calvo MD When: as scheduled next week
--- NOTE | 2019-01-01 09:12 | DCINST_ITS ---
You will use the following diet at home:: No restrictions Discharge Activity: Return to Normal Activity, May Shower, May Take a Tub Bath May resume sexual activity in: No Restrictions Weight Bearing Status: Weight bearing as tolerated Call your doctor if you observe: Fever of 101 or Higher, Inability to urinate, Inability to have a bowel movement Allergies/Adverse Reactions: Allergies latex Allergy (Verified 12/30/18 15:02) Swelling Penicillins Allergy (Verified 12/30/18 15:02) Rash Medications to take at Discharge Vits [Prenatabs FA ] 1 tablet PO DAILY 09/28/18 Loratadine [Claritin] 10 mg PO DAILY 12/30/18 Oseltamivir Phosphate [Tamiflu] 75 mg PO DAILY 12/30/18 Azithromycin 250 mg PO DAILY #3 tab 01/01/19 The following prescriptions were given: Azithromycin 250 mg PO DAILY #3 tab Primary Care Physician: Care Physician,No Primary [Primary Care Provider] - Test Results: Test results from this visit will be discussed in further detail at your follow- up appointment, if applicable. Please Follow Up With: Myke Calvo MD When: as scheduled next week
[2019-01-01] MEDS: Oseltamivir Phosphate 75 MG Capsule PO (09:18)
[2019-01-01] MEDS: Loratadine 10 MG Tablet PO (09:18)
[2019-01-01 11:00] VITALS: BP 114/66; PULSE 95; RESP 18; TEMP 36.7; O2SAT 97
== END 2019-01-01 11:35 | disposition home or self-care (01) | DRG 833 ==
LOC: ED 15:58 → MS3 18:22
PROVIDERS: Admitting Provider Obstetrics & Gynecology; Emergency Provider Emergency Medicine; Visit Provider Obstetrics & Gynecology
DX: O99.513 Diseases of the respiratory system complicating pregnancy, third trimester (principal); J11.1 Influenza due to unidentified influenza virus with other respiratory manifestations; B96.3 Hemophilus influenzae [H. influenzae] as the cause of diseases classified elsewhere; O99.89 Other specified diseases and conditions complicating pregnancy, childbirth and the puerperium; R00.0 Tachycardia, unspecified; R74.0 Nonspecific elevation of levels of transaminase and lactic acid dehydrogenase [LDH]; Z3A.32 32 weeks gestation of pregnancy; Z87.891 Personal history of nicotine dependence
CPT/HCPCS: 36415; 59025; 59050; 71046; 80053; 80076; 81001; 83605; 84484; 85025; 85610; 85730; 87040; 87086; 87088; 93005; 94640; 96361; 96365; 96366; 96367; 97802; 99218; 99283; 99406; J7030; J7120; A4216; G0378

== ENCOUNTER 2019-02-16 09:35 | Inpatient (IN) | payer OTHER, SELFPAY ==
[2018-12-30 19:01] VITALS: BMI 43.8
[2019-02-16] VITALS (16 sets, daily range): BP systolic 109–137; BP diastolic 51–92; PULSE 80–96; RESP 12–18; TEMP 36.1–36.8; O2SAT 97–100; BMI 44.4
[2019-02-16] MEDS: Lactated Ringers 1,000 ML 999 ML IV (09:50)
[2019-02-16 10:07] LABS: Absolute Lymphocyte Count 1.61 X10^3/ul (0.83-4.51); Absolute Neutrophil Count 7.5 X10^3/uL (2.0-7.7); Basophil# 0.02 X10^3/uL; Basophil% 0.2 % (0-1); Eosinophil# 0.15 X10^3/uL; Eosinophils% 1.5 % (0-5); Hematocrit 38.1 % (37-47); Hemoglobin 12.3 g/dl (12.0-15.0); Lymphocyte # 1.61 X10^3/ul (4.0); Lymphocyte % 15.9 % (19-41); Mean Corp Hgb Conc 32.3 g/gl (32-36); Mean Corpuscular Hgb 26.8 pg (27.0-32.0); Mean Platelet Vol. 10.1 fl (6.2-12.0); Monocyte# 0.74 X10^3/uL; Monocyte% 7.3 % (0-10); Neutrophil # 7.51 X10^3/uL (2.7-7.7); Neutrophil % 74.4 % (47-70); Platelet Count 185 K/mm3 (150-450); RBC Distribution Width CV 15.4 % (11.6-14.6); RBC Distribution Width SD 45.7 fl (35.1-43.9); Red Blood Count 4.59 M/mm3 (4.2-5.4); White Blood Count 10.1 K/mm3 (4.4-11.0)
[2019-02-16 10:10] LABS: POSITIVE COUNT NO; POSITIVE DIFFERENTIAL NO; POSITIVE MORPHOLOGY NO
[2019-02-16] MEDS: Lactated Ringers 1,000 ML 150 ML IV (10:45)
[2019-02-16] MEDS: Sodium Citrate/Citric Acid 30 ML UDC PO (10:45)
[2019-02-16] MEDS: Cefazolin 2 GM in 0.9% Normal Saline 100 ML IV (12:40)
--- NOTE | 2019-02-16 13:00 | OP.PCM_ITS ---
Report of Operation Date of Procedure: 02/16/19 Pre-Operative Diagnosis: Prior Section Post-Operative Diagnosis: Prior Section Surgery/Procedure Performed:: Prior Section Description of Surgical Findings:: Viable female with Apgars of 8/9 and an occiput anterior presentation with clear amniotic fluid and normal three-vessel placenta wood dowel machine operator: John Hoover Type of Anesthesia:: Spinal - With Duramorph Anesthesiologist: Robert Hester Specimen's removed: [facility]a to [facility] Drains: Gunderson to straight drain Estimated Blood Loss (mL): 500 cc Fluids Replaced: Crystalloid Description of Procedure: Surgeon: Myke Calvo MD, FACOG Indication: This is a 28-year-old who presents for her second at 39+ weeks gestation. care has otherwise been uneventful. The patient has been counseled regarding the risk and indications of this procedure including the possibility of bleeding infection and injury to surrounding structures such as bowel bladder. All questions were answered. Procedure: Patient was taken to the operating room where after spinal anesthesia was placed, the patient was prepped and draped in usual sterile fashion and a Gunderson catheter was placed. The abdomen was entered through the patient's prior Pfannenstiel incision and peritoneum was entered bluntly. After developing a bladder flap on the lower uterine segment a low transverse incision was made on the uterus and head was easily delivered onto the operative field the nose mouth and oropharynx were bulb suctioned. Subsequently a viable [ ] was born with Apgars of [ ]. The was noted to cry move all extremities vigorously on the operative field. The umbilical cord was doubly clamped and ligated and handed to the nursery personnel who were present for the delivery. Placenta was delivered and noted to be 3 vessels and normal. Uterus was exteriorized and remaining placental tissue was removed. The uterus was then closed in 2 layers first with running locked 0 Vicryl suture followed by a second imbricating layer with 0 Vicryl suture. 0 Vicryl suture was then used in a horizontal mattress interrupted fashion to affect final hemostasis of the uterine incision line. Normal fallopian tubes and ovaries were visualized and the uterus was returned to the pelvis. Hemostasis was noted and rectus abdominis muscles were reapproximated in the midline with interrupted Number 0 Vicryl suture in a horizontal mattress fashion. Fascia was closed with running Number 1 PDS Strata fix suture. Subcutaneous tissue was irrigated with copious amouts of saline solution and then closed with running 3-0 Vicryl suture. Skin was closed with 4-0 monocryl suture in a running subcuticular fashion. Steri strips, telfa, and tape were placed across the incision. The patient tolerated the procedure well and was taken to the recovery room in satisfactory condition. Sponge, needle, and instrument counts were all reportedly correct. EBL was [ ] cc. [ ] 2 gms IV was given prior to the procedure. Spicemen to Pathology: None Complications: None Grafts/Implants Used: None - Complications None - Admit VTE Documentation VTE Present on Admission: Yes VTE Mechan Device Prophylaxis: SCD's VTE Pharm Prophylaxis ordered?: No Reason prophylaxis not ordered:: Treatment Not Indicated
--- NOTE | 2019-02-16 13:01 | DCINST_ITS ---
Discharge Diet: No Restrictions Discharge Activity: May not drive while taking narcotic pain medications., May Shower, May Take a Tub Bath May resume sexual activity in: 4-6 weeks Lifting Restrictions: 20 pounds Additional Activity Instructions:: Nothing in the vagina for 4-6 weeks. You may return to work/school in 6 weeks. Call your doctor if your incision/area has: Continuous Slow Oozing, Sudden Increased Bleeding, Increased Pain/ Swelling, Increased Redness, Foul Smelling Discharge Call your doctor if you observe: Fever of 101 or Higher, Inability to urinate, Inability to have a bowel movement, Using more than one pad per hour Additional Instructions: If you experience any of the following, contact your healthcare provider. * Bleeding that soaks a pad every hour for 2 hours * Unrelieved incision or abdominal pain * Swelling, redness, discharge or bleeding from your incision or episiotomy site * Your incision begins to separate * Problems urinating (including inability to urinate or burning while urinating). * Visual changes * Severe headache * Flu-like symptoms * Pain or redness in one of both of your breasts * Pain, warmth, tenderness or swelling in your legs, especially the calf area * Frequent nausea and vomiting * Symptoms of depression or anxiety If you experience any of the following, call 911 or go to the nearest Emergency Room. * Chest pain * Problems breathing * Seizure activity * Partial or complete paralysis of a body part, slurred speech, weakness or drooping of the face, or a sudden inability to walk or hold your balance Allergies/Adverse Reactions: Allergies latex Allergy (Verified 12/30/18 15:02) Swelling Penicillins Allergy (Verified 12/30/18 15:02) Rash Medications to take at Discharge Vits [Prenatabs FA ] 1 tablet PO DAILY 09/28/18 Loratadine [Claritin] 10 mg PO DAILY 12/30/18 Docusate Sodium [Colace] 100 mg PO BID PRN PRN #60 cap 02/16/19 Oxycodone [Oxyir] 5 mg PO Q6H PRN PRN 7 Days #20 tab 02/16/19 The following prescriptions were given: Oxycodone [Oxyir] 5 mg PO Q6H PRN PRN 7 Days #20 tab PRN Reason: Severe Pain (-09/03) Docusate Sodium [Colace] 100 mg PO BID PRN PRN #60 cap PRN Reason: Constipation Follow-Up: Call to make an appointment with your doctor for an incision check in 1-2 weeks. You will also need a 6 week post- follow up appointment. Test results from this visit will be discussed in further detail at your follow- up appointment, if applicable. Please Follow Up With: Myke Calvo MD - [phone] When: Call to make an appointment for an incision check in 2 weeks. Primary Care Physician: Care Physician,No Primary [Primary Care Provider] -
[2019-02-16] MEDS: Oxytocin 30 units/NS 500 ml 30 UNITS/500 ML IV.SOLN 167 UNITS IV (13:27)
[2019-02-16] MEDS: Ketorolac 30 MG/ML Syringe IV ×2 (13:35→21:43)
[2019-02-16] MEDS: Lactated Ringers 1,000 ML 100 ML IV (14:59)
[2019-02-16] MEDS: Cefazolin 1 GM/50 ML BAG IV (21:42)
[2019-02-17] VITALS (10 sets, daily range): BP systolic 108–118; BP diastolic 50–69; PULSE 78–97; RESP 16–18; TEMP 36.4–36.8; O2SAT 97–100
[2019-02-17] MEDS: Lactated Ringers 1,000 ML 100 ML IV (00:46)
[2019-02-17] MEDS: Ketorolac 30 MG/ML Syringe IV ×4 (03:59→23:49)
[2019-02-17] MEDS: Cefazolin 1 GM/50 ML BAG IV (05:27)
[2019-02-17 05:59] LABS: Hematocrit 32.3 % (37-47); Hemoglobin 10.3 g/dl (12.0-15.0); Mean Corp Hgb Conc 31.9 g/gl (32-36); Mean Corpuscular Hgb 27.1 pg (27.0-32.0); Mean Platelet Vol. 10.2 fl (6.2-12.0); Platelet Count 177 K/mm3 (150-450); RBC Distribution Width CV 15.5 % (11.6-14.6); RBC Distribution Width SD 46.4 fl (35.1-43.9); White Blood Count 10.4 K/mm3 (4.4-11.0)
[2019-02-17 06:01] LABS: Scan Indicated on CBC? Y/N NO
[2019-02-17] MEDS: Loratadine 10 MG Tablet PO (10:28)
[2019-02-17] MEDS: Senna/Docusate Sodium 1 Tablet PO (10:28)
[2019-02-17] MEDS: 0.9% Saline Lock 10 ML Syringe IV ×2 (10:29→16:40)
--- NOTE | 2019-02-17 16:29 | PCM.PN.OB ---
Subjective: Patient without complaints. Tolerating diet well. Denies flatus. Minimal vaginal bleeding reported. - Physical Exam Vital Signs Temp Pulse Resp BP Pulse Ox 97.9 F 90 18 115/54 L 99 02/17/19 14:05 02/17/19 14:05 02/17/19 14:05 02/17/19 14:05 02/17/19 14:05 Oxygen Delivery Method Room Air Weight: 274 lb 14.663 oz Body Mass Index (BMI) 44.4 Intake and Output for Last 24 Hours 02/15/19 02/16/19 02/17/19 23:59 23:59 23:59 Intake Total 3128 / 3128 1100 / 1100 Output Total 850 / 850 850 / 850 Balance 2278 / 2278 250 / 250 Laboratory Tests Past 24 Hrs 02/17/19 05:40 WBC 10.4 RBC 3.80 L Hgb 10.3 L Hct 32.3 L MCV 85.0 MCH 27.1 MCHC 31.9 L RDW 15.5 H RDW Differential 46.4 H Plt Count 177 MPV 10.2 Wound is clean, dry, intact. Good urine output. Hemoglobin okay. Medical Necessity - Tobacco Use Smoking Status: Former smoker Assessment/Plan All Active Problems Microscopic hematuria (Acute) Flank pain, acute (Acute) Nausea and vomiting (Acute) Doing well postoperative day #1 status post repeat . Continuing present care.
[2019-02-17] MEDS: oxyCODONE 5 MG Tablet PO (21:08)
[2019-02-18 02:35] VITALS: BP 109/79; PULSE 84; RESP 16; TEMP 36.6; O2SAT 99
[2019-02-18] MEDS: Ketorolac 30 MG/ML Syringe IV (05:15)
[2019-02-18] MEDS: 0.9% Saline Lock 10 ML Syringe IV (05:16)
[2019-02-18 08:28] VITALS: BP 125/71; PULSE 85; RESP 16; TEMP 36.6; O2SAT 99
--- NOTE | 2019-02-18 09:23 | PCM.PN.OB ---
Subjective: Patient without complaints. Tolerating diet well. Denies flatus. Minimal vaginal bleeding. Wants to go home later today if possible. - Physical Exam Vital Signs Temp Pulse Resp BP Pulse Ox 97.8 F 85 16 125/71 H 99 02/18/19 08:28 02/18/19 08:28 02/18/19 08:28 02/18/19 08:28 02/18/19 08:28 Oxygen Delivery Method Room Air Weight: 274 lb 14.663 oz Body Mass Index (BMI) 44.4 Intake and Output for Last 24 Hours 02/16/19 02/17/19 02/18/19 23:59 23:59 23:59 Intake Total 3128 / 3128 1100 / 1100 400 / 400 Output Total 850 / 850 1650 / 1650 350 / 350 Balance 2278 / 2278 -550 / -550 50 / 50 Medical Necessity - Tobacco Use Smoking Status: Former smoker Assessment/Plan All Active Problems Microscopic hematuria (Acute) Flank pain, acute (Acute) Nausea and vomiting (Acute) Doing well postoperative day #2 status post repeat . Will release to home with routine instructions if bowel function demonstrated later today.
[2019-02-18] MEDS: Ibuprofen 600 MG Tablet PO (11:03)
[2019-02-18 11:25] VITALS: BP 124/70; PULSE 86; RESP 16; TEMP 36.6; O2SAT 99
--- NOTE | 2019-02-23 16:54 | NURSING ---
follow up phone call done and mother reports baby doesn't sleep well at night but other than that she feels good. no pain, no questions states the dr has her supplementing and she is pumping and giving both breastmilk and formula but denies need to see . was satisfied with her care
== END 2019-02-18 11:30 | disposition home or self-care (01) | DRG 788 ==
PROVIDERS: Admitting Provider Obstetrics & Gynecology; Referring Provider Obstetrics & Gynecology; Visit Provider Obstetrics & Gynecology
PROC: 10D00Z1 Extraction of Products of Conception, Low, Open Approach (ICD-10-PCS; CPT 59514; principal; 2019-02-16 11:45)
DX: O34.211 Maternal care for low transverse scar from previous cesarean delivery (principal); Z3A.39 39 weeks gestation of pregnancy; Z37.0 Single live birth; Z87.891 Personal history of nicotine dependence
CPT/HCPCS: 85025; 85027; 86850; 86900; 99218; J7120; A4216; G0378; J2405

== ENCOUNTER → 2020-07-29 13:49 | Outpatient (CLI) | payer OTHER, SELFPAY ==
[2019-02-16 12:04] VITALS: BMI 44.4
[2020-07-29 15:44] LABS: hCG Titer Quant., Serum 883 mIU/mL (1-3)
== END ==
PROVIDERS: Visit Provider Obstetrics & Gynecology
DX: O20.0 Threatened abortion (principal); Z3A.00 Weeks of gestation of pregnancy not specified
CPT/HCPCS: 36415; 84702

== ENCOUNTER → 2020-08-08 15:30 | Outpatient (CLI) | payer OTHER, SELFPAY ==
[2019-02-16 12:04] VITALS: BMI 44.4
[2020-08-08 16:57] LABS: hCG Titer Quant., Serum 9 mIU/mL (1-3)
== END ==
PROVIDERS: Visit Provider Obstetrics & Gynecology
DX: O20.0 Threatened abortion (principal); Z3A.00 Weeks of gestation of pregnancy not specified
CPT/HCPCS: 36415; 84702

== ENCOUNTER → 2020-09-29 15:41 | Outpatient (CLI) | payer OTHER, SELFPAY ==
[2019-02-16 12:04] VITALS: BMI 44.4
[2020-09-29 17:59] LABS: hCG Titer Quant., Serum 52602 mIU/mL (1-3)
[2020-10-04 03:07] LABS: Chlamydia By Nucleic Acid AMP Negative (Negative)
[2020-10-04 06:30] LABS: Gonococcus By Nucleic Acid AMP Negative (Negative)
== END ==
PROVIDERS: Visit Provider Obstetrics & Gynecology
DX: Z32.01 Encounter for pregnancy test, result positive (principal); Z11.3 Encounter for screening for infections with a predominantly sexual mode of transmission; N91.2 Amenorrhea, unspecified
CPT/HCPCS: 36415; 84702; 87491; 87591

== ENCOUNTER → 2020-10-02 11:21 | Outpatient (CLI) | payer OTHER, SELFPAY ==
[2019-02-16 12:04] VITALS: BMI 44.4
[2020-10-02 12:21] LABS: hCG Titer Quant., Serum 51991 mIU/mL (1-3)
== END ==
PROVIDERS: Visit Provider Obstetrics & Gynecology
DX: N91.2 Amenorrhea, unspecified (principal); Z32.01 Encounter for pregnancy test, result positive
CPT/HCPCS: 84702

== ENCOUNTER → 2020-10-11 13:46 | Outpatient (CLI) | payer OTHER, SELFPAY ==
[2019-02-16 12:04] VITALS: BMI 44.4
[2020-10-11 16:10] LABS: Amphetamine Urine VISTA NEGATIVE (<1000 ng/mL); Barbiturate Urine VISTA NEGATIVE (< 200 ng/mL); Benzodiazepine Urine VISTA NEGATIVE (< 200 ng/mL); Cocaine Urine VISTA NEGATIVE (< 300 ng/mL); Ecstacy Urine VISTA NEGATIVE (< 500 ng/mL); Methadone Urine VISTA NEGATIVE (< 300 ng/mL); PCP Urine VISTA NEGATIVE (< 25 ng/mL); THC Urine VISTA NEGATIVE (< 50 ng/mL); Vista UDS pH Range 6
[2020-10-11 16:15] LABS: Absolute Lymphocyte Count 2.34 X10^3/uL (0.83-4.51); Absolute Neutrophil Count 7.2 X10^3/uL (2.0-7.7); Basophil# 0.05 X10^3/uL; Basophil% 0.5 % (0-1); Eosinophil# 0.49 X10^3/uL; Eosinophils% 4.5 % (0-5); Hematocrit 41.6 % (37-47); Hemoglobin 12.9 g/dL (12.0-15.0); Lymphocyte # 2.34 X10^3/ul (4.0); Lymphocyte % 21.7 % (19-41); Mean Corpuscular Hgb 26.7 pg (27.0-32.0); Mean Corpuscular Volume 86.1 fL (81-99); Mean Platelet Vol. 10.4 fl (6.2-12.0); Monocyte# 0.61 X10^3/uL; Monocyte% 5.7 % (0-10); NRBC Flagged by Analyzer 0 % (0-5); Neutrophil # 7.23 X10^3/uL (2.7-7.7); Neutrophil % 67.1 % (47-70); Platelet Count 269 K/mm3 (150-450); RBC Distribution Width CV 13.6 % (11.6-14.6); RBC Distribution Width SD 42.5 fl (35.1-43.9); Red Blood Count 4.83 M/mm3 (4.2-5.4); White Blood Count 10.8 K/mm3 (4.4-11.0)
[2020-10-11 16:18] LABS: Thyroid Stim Hormone (TSH) 1.44 uIU/mL (0.358-3.74)
[2020-10-12 09:58] LABS: HIV - WCH Non-Reactive (Nonreactive); Hepatitis B Surface Antigen Non-Reactive (Nonreactive); Hepatitis C Antibody Non-Reactive (Nonreactive); Rubella IgG Reactive (Nonreactive)
[2020-10-13 02:51] LABS: Prenatal RPR NONREACTIVE (NONREACTIVE)
== END ==
PROVIDERS: Visit Provider Student in an Organized Health Care Education/Training Program
DX: Z32.01 Encounter for pregnancy test, result positive (principal)
CPT/HCPCS: 36415; 80307; 84443; 85025; 86703; 86762; 86803; 87086; 87088; 87340

== ENCOUNTER → 2021-01-26 14:49 | Outpatient (CLI) | payer OTHER, SELFPAY ==
[2019-02-16 12:04] VITALS: BMI 44.4
[2021-01-26 16:04] LABS: Hematocrit 35.6 % (37-47); Hemoglobin 11.6 g/dL (12.0-15.0); Mean Corp Hgb Conc 32.6 g/dL (32-36); Mean Corpuscular Hgb 27.5 pg (27.0-32.0); Mean Corpuscular Volume 84.4 fL (81-99); Mean Platelet Vol. 10.6 fl (6.2-12.0); Platelet Count 188 K/mm3 (150-450); RBC Distribution Width CV 13.7 % (11.6-14.6); RBC Distribution Width SD 41.8 fl (35.1-43.9); Red Blood Count 4.22 M/mm3 (4.2-5.4); White Blood Count 10.9 K/mm3 (4.4-11.0)
[2021-01-26 16:33] LABS: Glucose Challenge Gest 1H 50g 84 mg/dL (70-140)
== END ==
PROVIDERS: Visit Provider Obstetrics & Gynecology
DX: Z34.82 Encounter for supervision of other normal pregnancy, second trimester (principal)
CPT/HCPCS: 36415; 82950; 85027

== ENCOUNTER 2021-02-19 18:07 | Emergency (ER) | payer OTHER, SELFPAY ==
[2019-02-16 12:04] VITALS: BMI 44.4
[2021-02-19 18:08] VITALS: BP 146/87; PULSE 89; RESP 16; TEMP 36.8; O2SAT 98; BMI 43.2
--- NOTE | 2021-02-19 18:19 | ED.VIS.GEN ---
History of Present Illness Chief Complaint: Fall Informant: Patient Narrative: Patient is a 30-year-old previously healthy female who presents to the emergency department after she fell going up steps carrying her child. She injured her right ankle. She is not sure of the type of injury she sustained as it happened so quickly. She denies hitting her head or losing consciousness. She is currently approximately 28 weeks . She states she does feel some cramping on the left lower side. She denies any vaginal bleeding or discharge. She denies any chest or back pain. No injury to her other extremities. She has not ambulated since this happened. She does not take anything for it. The majority the pain is over the lateral ankle. Past Medical History - Allergies and Home Meds Allergies/Adverse Reactions: Allergies latex Allergy (Verified 02/19/21 18:11) Swelling Penicillins Allergy (Verified 02/19/21 18:11) Rash Primary Care Physician: Care Physician,No Primary [Primary Care Provider] - 3-5 Days Prior records reviewed: Yes Past Medical History: None Surgical History: no surgical history Smoking Status: Never smoker Review of Systems All systems negative except as indicated General: Denies: Chills, Fever Eyes: Denies: Visual changes - bilaterally, Diplopia ENT: Denies: Rhinorrhea Cardiovascular: Denies: Chest pain, Palpitations Respiratory: Denies: Dyspnea, Cough, Dyspnea on exertion Gastrointestinal: Denies: Abdominal pain, Nausea, Vomiting Genitourinary: Denies: Dysuria, Hematuria, Frequency Musculoskeletal: Reports: Swelling, Extremity Pain. Denies: Back pain Skin: Denies: Rash, Wounds Neurological: Denies: Headache, Weakness, Numbness Physical Exam Vital Signs/Narrative: Vital Signs Temp Pulse Resp BP Pulse Ox 02/19/21 18:08 98.2 F 89 16 146/87 H 98 Inital Vital Signs reviewed: Yes General: Well nourished, Well developed, No Acute Distress Head: Normocephalic, Atraumatic Eyes: Perrl, EOMI ENT: Moist mucous membranes, No rhinorrhea Neck: Supple, Nontender Cardiovascular: Regular rate, Regular rhythm, No murmurs Respiratory: No distress, CTA bilaterally, Chest nontender Abdomen: Soft, Nontender, Nondistended, Normal bowel sounds, - - Gravid abdomen Back: Nontender, Normal Inspection Extremities: Tenderness - Along the right lateral malleolus. No obvious deformity. No pain over her entire foot including base of fifth metatarsal. 2+ DP pulse. Neurovascular intact. Full range of motion of ankle., Edema - Mild peripheral edema present. Skin: Normal color, No rash Neurological: Alert, Oriented x3, Cranial nerves II-XII grossly intact, Normal Strength, Normal Sensation Psychological: Normal affect, Normal Mood Diagnostic/Tx/Re-eval Chest X-Ray - ED: - - Ankle x-ray interpreted by myself. No obvious fracture or dislocation. Agree with radiologist interpretation. - Medical Decision Making Patient presents to the emergency department for injury to the right ankle after a fall going up steps. No injury to head. He is currently . She is willing to take Tylenol at this time for her symptoms. Ice is being applied to the ankle. Will obtain x-ray to look for any signs of fracture. X-ray did not reveal any acute fracture. She is put in an air splint and given crutches that she has pain with any ambulation. I did do a bedside ultrasound which showed a heart rate of approximately 140 bpm. Time she is stable for discharge. She is asking for a work excuse and will be provided 1 as she does a lot of standing at work. She is to otherwise follow-up with her PCP. All questions were answered. ED Disposition - Plan for ED Patient: Disposition: Home or Assisted Living Diagnosis: Ankle sprain Instructions: ED Ankle Sprain (Adult) Referrals: Care Physician,No Primary [Primary Care Provider] - 3-5 Days
[2021-02-19] MEDS: Acetaminophen 325 MG Tablet 650 MG PO (18:31)
--- NOTE | 2021-02-19 18:40 | RAD_ITS ---
STUDY: X-RAY - RIGHT ANKLE REASON FOR EXAM: Female, 30 years old. Injury with fall TECHNIQUE: 3 view(s) of the ankle. COMPARISON: None. FINDINGS: Please see the impression. RAD/Ankle min 3 Views IMPRESSION: No acute fracture or dislocation in the right ankle. Mild soft tissue swelling overlying the lateral malleolus. Distal Achilles enthesopathy. No radiopaque foreign body. Electronically Signed: Ranjit Guerra MD at 19:22 EDT Tel , Service support ,
[2021-02-19 19:09] VITALS: BP 140/99; PULSE 92; RESP 16; O2SAT 98
[2021-02-19 19:59] VITALS: PULSE 78; RESP 17; O2SAT 98
== END 2021-02-19 20:00 | disposition home or self-care (01) ==
PROVIDERS: Emergency Provider Emergency Medicine
DX: O9A.213 Injury, poisoning and certain other consequences of external causes complicating pregnancy, third trimester (principal); S93.401A Sprain of unspecified ligament of right ankle, initial encounter; W10.9XXA Fall (on) (from) unspecified stairs and steps, initial encounter; Y93.9 Activity, unspecified; Y92.9 Unspecified place or not applicable; Y99.9 Unspecified external cause status; Z3A.28 28 weeks gestation of pregnancy
CPT/HCPCS: 73610; 90471; 99285

== ENCOUNTER → 2021-04-20 | Outpatient (CLI) | payer OTHER, SELFPAY | END | disposition home or self-care (01) | LOC: LABSPEC 16:37 | PROVIDERS: Visit Provider Obstetrics & Gynecology | DX: Z36.85 Encounter for antenatal screening for Streptococcus B (principal) | CPT/HCPCS: 87081 ==

== ENCOUNTER → 2021-05-05 15:56 | Outpatient (CLI) | payer OTHER, SELFPAY | PROVIDERS: Referring Provider Obstetrics & Gynecology; Visit Provider Obstetrics & Gynecology | DX: Z03.818 Encounter for observation for suspected exposure to other biological agents ruled out (principal) | CPT/HCPCS: 87635; C9803; U0005; U0003 ==

== ENCOUNTER 2021-05-09 05:00 | Inpatient (IN) | payer OTHER, SELFPAY ==
[2019-02-16 12:04] VITALS: BMI 44.4
--- NOTE | 2021-05-08 16:40 | PCM.HP.BLA ---
History and Physical Date of Admission: 05/09/21 OG ANTEPARTUM RECORD - HISTORY AND PHYSICAL (05/08/2021) History of this : This is a 30 year old [id number] presents at 39 wks + 0 days gestation for repeat . care is otherwise been uneventful. OB Physician: Myke Calvo MD [place]'s Physician: PED RAILROAD CONSTRUCTION DIRECTOR ...................................................................... : 1990 Age: 30 Address: [address] [place] [address] Phone: H) [phone] Insurance Carrier: [facility] [id number] Emergency Contact: ELE VALENTE/BOYFRIEND [phone] ...................................................................... Final MOHAN: 05/16/21 By Ultrasound: 9w US PARITY: (G-Total Pregnancies P-Fullterm,Premature,Induced AB,Spont AB, Ectopics, Multiple,Living) MOHAN CONFIRMATION: By LMP: 05/31/20 Initial Exam: 02/23/19 By First Ultrasound Exam: 02/23/19 Final MOHAN: 05/16/21 OB PROBLEM LIST: Allergic to PCN!!! Declines Quad Screen and Carrier Screening Desires tubal ligation Gained 100 lbs with her first preganncy Latex allergy Prior ---plan repeat Prior Smoker Struggled with milk supply- Classes offered ALLERGIES: Latex Edema Latex Swelling and rash Penicillin Rash Penicillins Hives and/or rash MEDICATIONS: Claritin 10 mg Tablet 1 po, prn allergies Vitamin tablet One pill by mouth once a day Proventil HFA 90 mcg/actuation aerosol inhaler 1 to 2 puffs twice daily as needed for wheezing SOCIAL HISTORY: Smoking - used to smoke but quit Alcohol Use - denies drinking Diet - balanced Diet Lifestyle - moderate stress lifestyle and Exercise - minimal Employer - [employer] ([place]) 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 Illicit Drug Use - denies use of street drugs Sexual Activity - Residence - lives with Place of - [place], [place] Hours Worked - 32-36/week Spouse-Sig Other Name - Ele Valente Spouse-Sig Other Occupation - Arch[employer] -- [employer] Spouse-Sig Other Phone No - [phone] cell Children Name(s) - Richar(12), Prashant(19) PRIOR DELIVERY HISTORY DEL DATE GEST LAB WT LB WT OZ TYPE ANES LABOR TX 02 Aug 14 8 0 0 0 Sab None No 16 Sep 12 41 48 8 10 C-Sec Epidural No 25 Feb 10 39 0 8 8 C-Sec Spinal No ANTEPARTUM FLOW CHART VISIT GE RTC FU F F AL U U DATE WK MD WKS HT PN HR M SS BP ED WT AL GL D EF ST __ ____ ___ __ __ ___ __ __ __ ___ __ __ __ ___ __ 09 Apr JMW 1 38 + + 124/68 1+ 280 ne ne Apr 37 CM 1 38 V + + 120/78 0 280 tr ne March JM 1 36 V + + 130/82 sl 279 tr - March JMW 3 33 + + 126/64 sl 276 tr - 15 Mar 24 JMW 3 32 + + 124/70 0 266 ne ne Feb 18 JMW 3 27 + + 136/78 sl 263 - - 04 Feb 15 JMW 4 24 + + 130/70 0 264 ne ne Dec 20 CM 4 20 + + 124/76 0 252 - - 14 Dec 11 JMW 2 17 + ? 132/78 0 253 - - Nov 06 JMW 4 + - 122/86 0 250 tr - Oct 13 CM 4 U+ O 118/70 0 251 tr ne ANTEPARTUM NOTE(S): May 03 2021: Doing Well Apr 25 2021: Apr 20 2021: GBS today, interested in tubal Mar 30 2021: Good FM,Feeling Well Mar 09 2021: Good FM Feb 15 2021: Good FM,Feeling Well Jan 26 2021: GCT and labs today Dec 27 2020: Dec 08 2020: Feeling Better, Flutters Noted,Declines AFP,CF Nov 10 2020: SOB/ wheezes, rx sent, present several months; inhaler spent Oct 11 2020: COMPREHENSIVE ANTEPARTUM NOTE(S): May 03 2021: Radha is here for PNV. Has been scheduled for c-sec/bilat tubal 05-09-21. Booklet and Ensure given. Consents signed. Instructions given. Voiced understanding. COVID order faxed. Feeling well with good FM. Slight swelling in lower legs/feet. Urine neg/neg. LSS Apr 26 2021: H taken to OB.tkg Apr 25 2021: 37/0w visit. C/s planned 05/09 with BTL. F/u 1w preop. CM Apr 25 2021: Radha is here at 37 w for appt. Feeling well but ready for baby. Tired. Baby active, Plans to breastfeed but had difficulty w both prev babies w sore nipples. Improvement of latch and positioning discussed. Advised can return w baby for LC at [facility] which she did not realize. DRSuzanne. Apr 20 2021: 36wk, GBS today. Pt for repeat c/s already schedule. But desires BTL, added to procedure. JM Mar 09 2021: Radha is here for PNV. States she is feeling great. No concerns today. Good FM. No edema noted. Urine neg/neg. LSS Jan 26 2021: Radha is here for PNV. Had GCT/labs today. Feeling well. Eating and taking in adequate fluids. No edema present today. Haivng good FM. No concerns today. Urine neg/neg. LSS Dec 27 2020: Comprehensive US today AGA, no anomalies. She is feeling FM. Voicing no concerns today. Glucola bottle and instructions given to be done next visit. kbm Dec 27 2020: 20/0w visit. Anatomy US today wnl. Obesity - will need growth US in third trimester. F/u 4w with Glucola. CM Nov 10 2020: Radha is here for a PNV. Reports mild nausea and fatigue that is manageable w/o medication. Denies cramping and spotting. Complains of SOB and wheezing. Pt states she had this with her last but thought it was due to moving into a new house. After delivering, the SOB and wheezing stopped. Since becoming , pt says it has reoccurred and is more frequent at night. Activity levels Oct 14 2020: Radha is called for NOB visit. She is AB1. First baby born in 2011, second in 2019, followed by an early loss. She plans R C/S as first ended with C/S and second was planned Repeat C/S. She reports feeling well and without question or concern today. Discussed carrier and genetic screening which she declines. EPDS is zero. Discussed healthy diet, exercise, and increased Oct 11 2020: Radha is here for PNV. Just had US. Urine dipped tr and neg. Having c/o nausea but no vomiting. No edema noted. Genetic packet given. LSS Oct 11 2020: at 9/0w, mohan 05/16/21 FINAL by 9w US. Feeling well. Reports occasional wheezing which appears to only be in . Okay to use proair - pt to notify if using daily, consider inhaled steroid at that itme. Declines carrier and genetic screening, PNP done today. F/u 4w. CM REVIEW OF SYSTEMS: GENERAL - Denies fever, or chills SKIN - Denies rash, new skin lesions, or change in moles EYES - Denies blurred vision, or change in visual acuity EARS - Denies ear pain, or difficulty hearing NOSE - Denies nasal congestion, discharge, or bleeding MOUTH - Denies sore throat, or difficulty swallowing NECK - Denies pain or swelling RESPIRATORY - Denies shortness of breath, cough, wheezing CARDIOVASCULAR - Denies palpitations, chest pain, orthopnea, PND, peripheral edema, syncope or claudication GASTROINTESTINAL - Denies nausea, vomiting, diarrhea, constipation, Denies abdominal pain, melena and or bright red blood GENITOURINARY - Denies dysuria, frequency of urination, urgency, or hesitancy MUSCULOSKELETAL - Denies joint or muscle pain, or back pain NEUROLOGICAL - Denies localized numbness, weakness, or tingling PSYCHIATRIC - Denies depression, anxiety, substance abuse or suicide attempts ENDOCRINE - Denies heat or cold intolerance, weight loss or gain, increasing thirst HEMATO-IMMUNOLOGIC - Denies easy bruising, bleeding, oral ulcerations or recurrent infections GENETICS SCREENING: Age 35+ years: No Thalassemia: No Neural Tube Defect: No Down Syndrome: No TREASURE-SACHS: No Sickle Cell Disease: No Hemophilia: No Musc. Dystrophy: No Cystic Fibrosis: No-declines screening [place] Chorea: No Mental Retardation: No Fragile X: No Other genetic: No Other defects: No SABs/still births: No Drugs since LMP: No INFECTION HISTORY: High risk AIDS: No High risk Hepatitis: No Exposed to TB: No Exposed to Herpes: No Rash/viral illness since LMP: No History of STD: No MENSTRUAL HISTORY: *Menses Amount/Duration: 5 daysMenarche (Age Onset): 10* PAST SUMMARY: PARITY: 1. Total Pregnancies............ 4 2. Full Term Pregnancies........ 2 3. Premature.................... 0 4. Abortions - Induced.......... 0 5. Abortions - Spontaneous...... 1 6. Ectopics..................... 0 7. Multiple Births.............. 0 8. Living Children.............. 2 PAST #1: Date of :.................. 10/10/12 Gestation Weeks:................ 41 Length of labor(hours):......... 48 Sex:............................ M Weight-lbs:............... 8 Weight-oz:................ 10 Type of Delivery:............... C-Sect Type of Anesthesia:............. Epidural Place of Delivery:.............. [place] Treatment of Labor?:.... No Comment: PIT, ARREST OF DILATION PAST #2: Date of :.................. 02/16/19 Gestation Weeks:................ 39 Length of labor(hours):......... 0 Sex:............................ F Weight-lbs:............... 8 Weight-oz:................ 8 Type of Delivery:............... C-Sect Type of Anesthesia:............. Spinal Place of Delivery:.............. [place] Treatment of Labor?:.... No Comment: PAST #3: Date of :.................. 07/27/20 Gestation Weeks:................ 8 Length of labor(hours):......... 0 Sex:............................ Weight-lbs:............... 0 Weight-oz:................ 0 Type of Delivery:............... Sab Type of Anesthesia:............. None Place of Delivery:.............. HOME Treatment of Labor?:.... No Comment: PHYSICAL EXAMINATION General Appearence: 30 yo female in no acute distress Vital Signs: AF, VSS Heart: RRR without rubs or gallops Lungs: CTA x 2 Breasts: deferred Abdomen: gravid Pelvis: Cervix: Presentation: cephalic Station: Fetus: Size: AGA Movement: present Heart: present LAB TEST(S) ORDERED SINCE:08/19/20 10/13/2020 RPR 10/13/2020 CULTURE, URINE 10/12/2020 RUBELLA IGG 10/12/2020 HIV - [facility] 10/12/2020 HEPATITIS C ANTIBODY 10/12/2020 HEPATITIS B SURFACE ANTIGEN 10/11/2020 URINE DRUG SCREEN (VISTA) 10/11/2020 THYROID STIM HORMONE (TSH) 10/11/2020 T AND S-NO CHARGE W/PNP 10/11/2020 CBC W/DIFF, AUTOMATED 10/04/2020 CHLAMYDIA/GC ZULMA APTIMA 10/02/2020 HCG TITER QUANT., SERUM 09/29/2020 HCG TITER QUANT., SERUM 05/05/2021 COVID 19, ZULMA WC(RT COLLECT) 04/23/2021 RULE OUT BETA STREP (GRP. B) 01/26/2021 GLUCOSE CHALLENGE GEST 1H 50G 01/26/2021 CBC-COMPLETE BLOOD CNT NO DIFF == ==== Order Observation Description Value Ref_Range A* Site == ==== COVID 19, ZULMA NOTE PORTER COVID 19, ZULMA COVID-19,ZULMA Not Detected Not Detect ML Normal Reference Range: Not Detected Method:(RT-PCR) real-time reverse transcriptase PCR Luminex Octoshape Instrument *The Food and Drug Administration (FDA) has issued an Emergency Use Authorization (EAU) for the EDWARD SARS-CoV-2 Assay for the rapid detection of the virus that causes COVID-19. This test has been validated, but the [facility] independent review of this validation is pending. *Negative results do not preclude infection and should not be used as the sole basis for treatment or patient management. Optimum specimen types and timing for peak viral levels during infections caused by SARS-CoV-2 have not been determined. Collection of multiple specimens from the same patient may be necessary to detect the virus. The possibility of a false negative result should be considered if the patient has clinical presentation or has had recent exposure. RULE OUT BETA S NOTE PORTER GLUCOSE CHALLEN NOTE PORTER GLUCOSE CHALLEN GLU GEST 50G 1H 84 mg/dL 70-140 ML CBC-COMPLETE BL NOTE PORTER CBC-COMPLETE BL WBC 10.9 K/mm3 4.4-11.0 ML CBC-COMPLETE BL RBC 4.22 M/mm3 4.2-5.4 ML CBC-COMPLETE BL HGB 11.6 g/dL 12.0-15.0 L ML CBC-COMPLETE BL HCT 35.6 37-47 L ML CBC-COMPLETE BL MCV 84.4 fL 81-99 ML CBC-COMPLETE BL MCH 27.5 pg 27.0-32.0 ML CBC-COMPLETE BL MCHC 32.6 g/dL 32-36 ML CBC-COMPLETE BL RDW CV 13.7 11.6-14.6 ML CBC-COMPLETE BL RDW SD 41.8 fl 35.1-43.9 ML CBC-COMPLETE BL PLT 188 K/mm3 150-450 ML CBC-COMPLETE BL MPV 10.6 fl 6.2-12.0 ML CULTURE, URINE NOTE PORTER RPR NOTE PORTER RPR RPR NONREACTIVE NONREACTIVE ML HEPATITIS C ANT NOTE PORTER HEPATITIS C ANT HEPATITIS C AB Non-Reactive Nonreactive ML Non Reactive: < 0.8 Equivocal: >/= 0.8 to < 1.0 Reactive: >/= 1.0 The CDC recommends that a reactive/equivocal HCV antibody result be followed up by the HCV Nucleic Acid Amplification test (818166) HEPATITIS B CHUCKIE NOTE PORTER HEPATITIS B CHUCKIE HEPB SURFACE AG Non-Reactive Nonreactive ML HIV - [facility] NOTE PORTER HIV - [facility] HIV - [facility] Non-Reactive Nonreactive ML RUBELLA IGG NOTE PORTER RUBELLA IGG RUBELLA IGG Reactive Nonreactive ML Antibody Results Interpretation of Immune Status Non Reactive Presumed Non-Immune Equivocal Equivocal Reactive Presumed Immune Reason for Type AND Screen/Red Cells: Surgery? [facility]~[address] [place], [address]~ T AND BLOOD TYPE GEL O POSITIVE N ML T AND AB SCREEN GEL NEGATIVE N ML THYROID STIM HO NOTE PORTER THYROID STIM HO TSH 1.44 uIU/mL 0.358-3.74 ML CBC W/DIFF, AUT NOTE PORTER CBC W/DIFF, AUT WBC 10.8 K/mm3 4.4-11.0 ML CBC W/DIFF, AUT RBC 4.83 M/mm3 4.2-5.4 ML CBC W/DIFF, AUT HGB 12.9 g/dL 12.0-15.0 ML CBC W/DIFF, AUT HCT 41.6 % 37-47 ML CBC W/DIFF, AUT MCV 86.1 fL 81-99 ML CBC W/DIFF, AUT MCH 26.7 pg 27.0-32.0 L ML CBC W/DIFF, AUT MCHC 31.0 g/dL 32-36 L ML CBC W/DIFF, AUT RDW CV 13.6 % 11.6-14.6 ML CBC W/DIFF, AUT RDW SD 42.5 fl 35.1-43.9 ML CBC W/DIFF, AUT PLT 269 K/mm3 150-450 ML CBC W/DIFF, AUT MPV 10.4 fl 6.2-12.0 ML CBC W/DIFF, AUT NEUT% 67.1 % 47-70 ML CBC W/DIFF, AUT LY% 21.7 % 19-41 ML CBC W/DIFF, AUT MONO% 5.7 % 0-10 ML CBC W/DIFF, AUT EO% 4.5 % 0-5 ML CBC W/DIFF, AUT BASO% 0.5 % 0-1 ML CBC W/DIFF, AUT IM GRAN % 0.500 % 0.0-0.9 ML IG% - Immature Granulocytes (promyelocytes, myelocytes and metamyelocytes) > 1% indicates that a LEFT SHIFT is Present. CBC W/DIFF, AUT ABSOLUTE NEUT 7.2 X10 3/uL 2.0-7.7 ML CBC W/DIFF, AUT ABSOLUTE LYMPH 2.34 X10 3/uL 0.83-4.51 ML CBC W/DIFF, AUT NRBC, FLAGGED 0 % 0-5 ML URINE DRUG SCRE NOTE PORTER URINE DRUG SCRE TO BE CONFIRMED ML CONFIRMATORY TESTING FOR ALL POSITIVE URINE DRUG SCREEN RESULTS WILL ONLY BE SENT OUT UPON PHYSICIAN ORDER. VISTA Urine Drug Screen methods provide only preliminary analytical test results. A more specific alternate chemical method must be used in order to obtain a confirmed analytical result. Gas chromatography/mass spectrometery (GC/MS) is the preferred confirmatory method. Clinical consideration and professional judgement should be applied to any drug of abuse test result, particularly when preliminary positive results are used. URINE TCA TESTING MUST BE ORDERED SEPARATELY. USE TEST MNEMONIC: UTCA URINE DRUG SCRE VISTA UDS PH 6 ML URINE DRUG SCRE AMPHETAMINES NEGATIVE <1000 ng/mL ML URINE DRUG SCRE BARBITIURATES NEGATIVE < 200 ng/mL ML URINE DRUG SCRE BENZODIAZIPINE NEGATIVE < 200 ng/mL ML URINE DRUG SCRE COCAINE NEGATIVE < 300 ng/mL ML URINE DRUG SCRE ECSTACY NEGATIVE < 500 ng/mL ML URINE DRUG SCRE METHADONE NEGATIVE < 300 ng/mL ML URINE DRUG SCRE OPIATES NEGATIVE < 300 ng/mL ML URINE DRUG SCRE PCP NEGATIVE < 25 ng/mL ML URINE DRUG SCRE THC NEGATIVE < 50 ng/mL ML HCG TITER QUANT NOTE PORTER HCG TITER QUANT HCG QUANT. 74539 mIU/mL 1-3 H ML hCG levels with Gestational Age Gestational Age hCG mIU/mL (IU/L) 0.2 - 1 week 5 - 50 1-2 weeks 50 - 500 2-3 weeks 100 - 5000 3-4 weeks 500 - 36287 4-5 weeks 1000 - 61511 5-6 weeks 75774 - 100,000 6-8 weeks 99041 - 200,000 2-3 months 95277 - 100,000 CHLAMYDIA/GC NA NOTE PORTER CHLAMYDIA/GC NA CHLAMY,NUC ACID Negative Negative LC CHLAMYDIA/GC NA GC BY NUC ACID Negative Negative LC Performed at: =[facility] [id number] [employer] Rehabilitation Consultant: Tressa Hughes MD, Phone: [phone] HCG TITER QUANT NOTE PORTER HCG TITER QUANT HCG QUANT. 36962 mIU/mL 1-3 H ML hCG levels with Gestational Age Gestational Age hCG mIU/mL (IU/L) 0.2 - 1 week 5 - 50 1-2 weeks 50 - 500 2-3 weeks 100 - 5000 3-4 weeks 500 - 23371 4-5 weeks 1000 - 16972 5-6 weeks 97686 - 100,000 6-8 weeks 23067 - 200,000 2-3 months 61627 - 100,000 Group B Beta Streptococcus is not isolated. Urine Culture Below infection level. ORGANISM 1: Mixed Gram Positive Organisms [place] Count 1000-10,000 == ==== Impression /Plan: 39-week intrauterine for repeat . Preparations in progress for delivery.
[2021-05-09] VITALS (24 sets, daily range): BP systolic 98–127; BP diastolic 43–70; PULSE 65–92; RESP 14–18; TEMP 35.5–36.6; O2SAT 97–100; BMI 43.2
[2021-05-09] MEDS: Lactated Ringers 1,000 ML 999 ML IV (05:30)
[2021-05-09 05:41] LABS: Absolute Neutrophil Count 7.5 X10^3/uL (2.0-7.7); Basophil# 0.04 X10^3/uL; Basophil% 0.4 % (0-1); Eosinophil# 0.26 X10^3/uL; Eosinophils% 2.6 % (0-5); Hematocrit 37.1 % (37-47); Hemoglobin 11.8 g/dL (12.0-15.0); Lymphocyte % 17.7 % (19-41); Mean Corp Hgb Conc 31.8 g/dL (32-36); Mean Corpuscular Hgb 26.4 pg (27.0-32.0); Mean Platelet Vol. 10.4 fl (6.2-12.0); Monocyte# 0.51 X10^3/uL; NRBC Flagged by Analyzer 0 % (0-5); Neutrophil # 7.45 X10^3/uL (2.7-7.7); Neutrophil % 73.4 % (47-70); Platelet Count 165 K/mm3 (150-450); RBC Distribution Width CV 14.7 % (11.6-14.6); Red Blood Count 4.47 M/mm3 (4.2-5.4); White Blood Count 10.2 K/mm3 (4.4-11.0)
[2021-05-09] MEDS: Acetaminophen 500 MG Tablet 1000 MG PO ×4 (05:41→23:44)
[2021-05-09] MEDS: Lactated Ringers 1,000 ML 150 ML IV (06:30)
[2021-05-09] MEDS: Sodium Citrate/Citric Acid 30 ML UDC PO (07:06)
--- NOTE | 2021-05-09 07:16 | OP.PCM_ITS ---
Details Operative Information Date of Procedure: 05/09/21 Pre-Operative Diagnosis: Prior Section, Desires Permanent Sterilization Post-Operative Diagnosis: Prior Section, Desires Permanent Sterilization Classification: Scheduled Procedure Type: low transverse (with bilateral salpingectomy) career and transition teacher #1: Amalia Doe Type of Anesthesia: Spinal (With Duramorph) Anesthesiologist: Niall Motta Antibiotic Given: Ancef 3 grams IV x1 Drain: Gunderson to straight drain Estimated Blood Loss: 500 cc Fluids Replaced: Crystalloid Findings Description of Procedure: Surgeon: Myke Calvo MD, FACOG Findings: Viable male infant with Apgars of 8/9 in occiput anterior presentation with clear amniotic fluid and normal three-vessel placenta. Indication: This is a 30-year-old who presents for her third at 39 weeks gestation. care has otherwise been uneventful. Patient also desires permanent sterilization and has considered this form of control for quite some time. The patient has been counseled regarding the risk and indications of this procedure including the possibility of bleeding infection and injury to surrounding structures such as bowel bladder. She also understands the permanent nature of the tubal, the failure rate of 1 to 2%, and the availability of other nonpermanent control options. All questions were answered. Procedure: Patient was taken to the operating room where after spinal anesthesia was placed, the patient was prepped and draped in usual sterile fashion and a Gunderson catheter was placed. The abdomen was entered through the patient's prior Pfannenstiel incision and peritoneum was entered bluntly. After developing a bladder flap on the lower uterine segment a low transverse incision was made on the uterus and head was easily delivered onto the operative field the nose mouth and oropharynx were bulb suctioned. Subsequently a viable male infant was born with Apgars of 8/9. The infant was noted to cry move all extremities vigorously on the operative field. The umbilical cord was doubly clamped and ligated and handed to the nursery personnel who were present for the delivery. Placenta was delivered and noted to be 3 vessels and normal. Uterus was exteriorized and remaining placental tissue was removed. The uterus was then closed in 2 layers first with running locked 0 Vicryl suture followed by a second imbricating layer with 0 Vicryl suture. 0 Vicryl suture was then used in a horizontal mattress interrupted fashion to affect final hemostasis of the uterine incision line. Normal fallopian tubes and ovaries were visualized and ligated with LigaSure on both tubes and sent to pathology. The uterus was returned to the pelvis. Hemostasis was noted and rectus abdominis muscles were reapproximated in the midline with interrupted Number 0 Vicryl suture in a horizontal mattress fashion. Fascia was closed with running Number 1 PDS Strata fix suture. Subcutaneous tissue was irrigated with copious amounts of saline solution and then closed with running 3-0 Vicryl suture. Skin was closed with 4-0 monocryl suture in a running subcuticular fashion. Steri strips and a Mepilex dressing were placed across the incision. The patient tolerated the procedure well and was taken to the recovery room in satisfactory condition. Sponge, needle, and instrument counts were all reportedly correct. EBL was less than 500 cc. Ancef 3 gms IV was given prior to the procedure. Spicemen to Pathology: None Complications: None Presentation: Positive for Vertex Amniotic Fluid Description: Clear Placental Delivery Description: Spontaneous Placenta Disposition: [facility] Specimen(s) Sent to Pathology: Bilateral fallopian tubes Cord Vessel Description: 3 Vessels Cord Entanglement: None A Gender: Male (1 minute): 8 (5 minute): 9 Complications Risks of Surgery Discussed w/Patient: Bleeding, Infection and Injury to surrounding structure(s) including bowel and bladder Complications: None
--- NOTE | 2021-05-09 07:20 | PCM.DC ---
Discharge Instructions Diet Discharge Diet: No restrictions Activity May resume sexual activity in: 4-6 weeks Lifting Restrictions: 20 pounds for 6 weeks Dressing / Incision Call your doctor if your incision/area has: Continuous Slow Oozing, Sudden Increased Bleeding, Increased Pain/ Swelling, Increased Redness and Foul Smelling Discharge Call your doctor if you observe: Fever of 101 or Higher, Inability to urinate, Inability to have a bowel movement and Using more than 1 pad per hour Remove Dressing in: 1 week (Outside dressing. Leave Steri-Strips in place.) Follow Up Care Please Follow Up With: Myke Calvo MD When: Call [phone] for appointment to be seen in 2 weeks. Test Results: Test results from this visit will be discussed in further detail at your follow-up appointment, if applicable. Discharge Plan Admission Admit Date/Time: 05/09/21 05:00 Primary Reason for Your Visit: Repeat Section Attending Provider: Myke Calvo Primary Care Provider: Care Physician,Kaylyn Primary Discharge Orders/Prescriptions Prescriptions: New oxycodone 5 mg capsule 5 mg PO Q6H PRN (Reason: pain) 7 Days Qty: 14 RF: 0 docusate sodium 100 mg tablet 100 mg PO BID PRN (Reason: constipation) Qty: 60 RF: 1 Continued Prenatabs FA 1 TABLET tablet 1 tab PO DAILY RF: 0 Referrals / Follow Up: Care Physician,No Primary [Primary Care Provider] - Disposition Disposition (needs filled in before D/C Order can be placed): Home, self care
--- NOTE | 2021-05-09 07:39 | FALS_PTH ---
PATIENT: AISHA VALENTE LOC: [facility] U#:[id number] AGE/SX: 30/F ROOM: WP005 RE05/09/[address]: Dr. Myke Calvo MD : 1990 BED: 1 DIS: 05/11/2021 SPEC #: [id number] RECD: 05/09/21 09:05 STATUS: LACHELLE REAmilcar #: [id number] KEYANNA: 05/09/21 07:[address]: Myke Calvo DEPT: SURGICAL PATHOLOGY RECD BY: Alondra Raines ENTERED: 05/09/21 10:32 SP TYPE: FALL TUBES OTHR DR: No Primary Care Phys Tissues: Fallopian tube Procedures: Surgery Specimen Level II HEADER OPERATION: Tubal ligation PRE-OP DIAGNOSIS: Sterilization TISSUE SUBMITTED: Fallopian tubes, suture in right tube MICROSCOPIC DIAGNOSIS Bilateral fallopian tubes, salpingectomy: Bilateral fallopian tubes, no pathologic diagnosis. VANESSA:nati 05/10/2021 MICROSCOPIC DESCRIPTION Slides are reviewed. GROSS DESCRIPTION Received in fixative is one container labeled with the patient's name and designated bilateral fallopian tubes, suture in right tube. The specimen consists of bilateral fallopian tubes including fimbrial ends. The right fallopian tube measures 8 cm in length and 0.6 cm in diameter and left fallopian tube measures 6 cm in length and 0.8 cm in diameter. Sections reveal unremarkable cut surfaces. Skidder sections are submitted in two cassettes as follows: 1??right fallopian tube, 2 - left fallopian tube. / VANESSA:nati 05/09/21 TC:4 CPT: 25310 x2
[2021-05-09] MEDS: Oxytocin 30 units/NS 500 ml 30 UNITS/500 ML IV.SOLN 167 UNITS IV (08:45)
[2021-05-09 09:05] LABS: Pathology Specimen OB SEE PATHOLOGY REPORT
[2021-05-09] MEDS: Ketorolac 30 MG/ML Syringe IV ×3 (09:33→21:37)
[2021-05-09] MEDS: Senna/Docusate Sodium 1 Tablet PO (10:55)
[2021-05-09] MEDS: 0.9% Saline Lock 10 ML Syringe IV ×3 (13:15→21:37)
[2021-05-09] MEDS: Cefazolin 1 GM/50 ML BAG IV ×2 (15:37→23:16)
[2021-05-09] MEDS: Enoxaparin 40 MG/0.4 ML Syringe SC (19:44)
--- NOTE | 2021-05-09 20:30 | NURSING ---
pt voided and missed hat, pt did not feel like she voided a lot. uterus remains firm, midline, bleeding appropriate.
[2021-05-10] VITALS (9 sets, daily range): BP systolic 109–137; BP diastolic 57–67; PULSE 65–101; RESP 16–18; TEMP 36.1–36.6; O2SAT 96–98
[2021-05-10] MEDS: Ketorolac 30 MG/ML Syringe IV (04:01)
[2021-05-10] MEDS: 0.9% Saline Lock 10 ML Syringe IV (04:01)
[2021-05-10] MEDS: Acetaminophen 500 MG Tablet 1000 MG PO ×3 (05:48→18:55)
[2021-05-10 06:12] LABS: Hematocrit 33.9 % (37-47); Hemoglobin 10.5 g/dL (12.0-15.0); Mean Corpuscular Hgb 26.5 pg (27.0-32.0); Mean Corpuscular Volume 85.6 fL (81-99); Mean Platelet Vol. 10.8 fl (6.2-12.0); Platelet Count 140 K/mm3 (150-450); RBC Distribution Width SD 46.3 fl (35.1-43.9); Red Blood Count 3.96 M/mm3 (4.2-5.4); White Blood Count 10.3 K/mm3 (4.4-11.0)
--- NOTE | 2021-05-10 09:28 | PCM.PN.OB ---
Subjective Subjective Patient without complaints. Tolerating diet well. Denies flatus. Pain is well controlled. Objective Data Objective Data Wound is clean, dry, intact. Good urine output. Hemoglobin okay. Vital Signs: Vital Signs Temp Pulse Resp BP Pulse Ox 97.4 F L 65 16 109/58 L 98 05/10/21 08:02 05/10/21 08:02 05/10/21 08:02 05/10/21 08:02 05/10/21 08:02 Oxygen Delivery Method Room Air Weight: 284 lb 6.341 oz Body Mass Index (BMI) 43.2 Intake & Output: Intake and Output for Last 24 Hours 05/08/21 05/09/21 05/10/21 23:59 23:59 23:59 Intake Total 2802.5 / 2802.5 Output Total 700 / 700 350 / 350 Balance 2102.5 / 2102.5 -350 / -350 Lab / Micro Data Result Diagrams: 05/10/21 06:05 Labs: Laboratory Results - last 24 hr 05/10/21 06:05 WBC 10.3 RBC 3.96 L Hgb 10.5 L Hct 33.9 L MCV 85.6 MCH 26.5 L MCHC 31.0 L RDW Std Deviation 46.3 H RDW Coeff of Demetrius 15.0 H Plt Count 140 L MPV 10.8 Assessment & Plan (1) delivery delivered: PLAN: Doing well postoperative day #1 status post repeat . Continuing present care.
[2021-05-10] MEDS: Ibuprofen 600 MG Tablet PO ×3 (10:33→21:26)
[2021-05-10] MEDS: Senna/Docusate Sodium 1 Tablet PO (10:34)
[2021-05-10] MEDS: Enoxaparin 40 MG/0.4 ML Syringe SC (10:34)
[2021-05-11] MEDS: Acetaminophen 500 MG Tablet 1000 MG PO ×2 (00:31→05:57)
[2021-05-11 03:51] VITALS: BP 121/69; PULSE 89; RESP 18; TEMP 36.4
[2021-05-11] MEDS: Ibuprofen 600 MG Tablet PO ×2 (03:53→11:22)
--- NOTE | 2021-05-11 07:45 | PCM.PN.OB ---
Subjective Subjective Patient without complaints. Tolerating diet well. Positive flatus. Pain is well controlled. Wants to go home today. Objective Data Objective Data Vital Signs: Vital Signs Temp Pulse Resp BP Pulse Ox 97.5 F L 89 18 121/69 H 98 05/11/21 03:51 05/11/21 03:51 05/11/21 03:51 05/11/21 03:51 05/10/21 08:09 Oxygen Delivery Method Room Air Weight: 284 lb 6.341 oz Body Mass Index (BMI) 43.2 Intake & Output: Intake and Output for Last 24 Hours 05/09/21 05/10/21 05/11/21 23:59 23:59 23:59 Intake Total 2802.5 / 2802.5 Output Total 700 / 700 1150 / 1150 Balance 2102.5 / 2102.5 -1150 / -1150 Lab / Micro Data Result Diagrams: 05/10/21 06:05 Physical Exam Narrative Wound is clean, dry, intact. Good urine output. Assessment & Plan (1) delivery delivered: PLAN: Doing well postoperative day #2 status post repeat and tubal. Will discharge to home with routine instructions.
[2021-05-11 08:38] VITALS: BP 126/69; PULSE 85; RESP 18; TEMP 36.4
[2021-05-11] MEDS: Enoxaparin 40 MG/0.4 ML Syringe SC (11:23)
[2021-05-11] MEDS: Senna/Docusate Sodium 1 Tablet PO (11:23)
== END 2021-05-11 11:55 | disposition home or self-care (01) | DRG 785 ==
PROVIDERS: Admitting Provider Obstetrics & Gynecology; Visit Provider Obstetrics & Gynecology
PROC: 10D00Z1 Extraction of Products of Conception, Low, Open Approach (ICD-10-PCS; CPT 59514; principal; 2021-05-09 07:15)
DX: O34.219 Maternal care for unspecified type scar from previous cesarean delivery (principal); Z37.0 Single live birth; Z3A.39 39 weeks gestation of pregnancy; Z87.891 Personal history of nicotine dependence; Z30.2 Encounter for sterilization
CPT/HCPCS: 85025; 85027; 86850; 86900; 86901; 88302; 99218; 99251; J7120; A4216; G0378; G0463; J2405

== ENCOUNTER → 2022-12-14 | Outpatient (CLI) | payer OTHER, SELFPAY ==
[2022-12-19 16:25] LABS: HPV APTIMA, High Risk Negative (Negative)
== END | disposition home or self-care (01) ==
LOC: LABSPEC 15:49
PROVIDERS: Referring Provider Obstetrics & Gynecology; Visit Provider Obstetrics & Gynecology
DX: Z12.4 Encounter for screening for malignant neoplasm of cervix (principal)
CPT/HCPCS: 87624; 88175; G0145

== ENCOUNTER 2022-12-21 08:00 | Outpatient (CLI) | payer OTHER, SELFPAY ==
[2022-12-21 08:52] LABS: Absolute Lymphocyte Count 2.24 X10^3/uL (0.83-4.51); Absolute Neutrophil Count 4.6 X10^3/uL (2.0-7.7); Basophil# 0.06 X10^3/uL; Basophil% 0.7 % (0-1); Eosinophil# 0.49 X10^3/uL; Eosinophils% 6.1 % (0-5); Hematocrit 38.7 % (37-47); Hemoglobin 12.2 g/dL (12.0-15.0); Lymphocyte # 2.24 X10^3/ul (0.83-4.51); Lymphocyte % 27.8 % (19-41); Mean Corp Hgb Conc 31.5 g/dL (32-36); Mean Corpuscular Volume 82.5 fL (81-99); Mean Platelet Vol. 10.5 fl (6.2-12.0); Monocyte# 0.61 X10^3/uL; Monocyte% 7.6 % (0-10); NRBC Flagged by Analyzer 0 % (0-5); Neutrophil # 4.62 X10^3/uL (2.7-7.7); Neutrophil % 57.3 % (47-70); Platelet Count 284 K/mm3 (150-450); RBC Distribution Width CV 14.4 % (11.6-14.6); RBC Distribution Width SD 42.5 fl (35.1-43.9); Red Blood Count 4.69 M/mm3 (4.2-5.4); White Blood Count 8.1 K/mm3 (4.4-11.0)
[2022-12-21 09:17] LABS: ALB/GLOB Ratio 1.1 RATIO (0.9-2.4); AST(SGOT) 10 U/L (15-37); Alanine Aminotransfer ALT/SGPT 19 U/L (13-56); Albumin, Serum 3.8 g/dL (3.2-5.0); Alkaline Phosphatase 63 U/L (45-117); Anion Gap 8 (5-15); BUN 11 mg/dL (7-18); BUN/Creat Ratio 12.9 RATIO (10-20); Calcium,Total 8.9 mg/dL (8.5-10.1); Chloride 111 mmol/L (98-107); Creatinine, Serum 0.85 mg/dL (0.55-1.02); EST Glomerular Filtration Rate 82 mL/min (>60); Est Glom Filt Rate - Afr Amer 99 mL/min (>60); Globulin 3.5 g/dL (2.2-4.2); Glucose 98 mg/dL (74-106); Potassium 4.1 mmol/L (3.5-5.1); Protein, Total 7.3 g/dL (6.4-8.2); Sodium Level 143 mmol/L (136-145)
== END 2022-12-21 23:59 | disposition home or self-care (01) ==
LOC: PAVLAB 08:01
PROVIDERS: Referring Provider Obstetrics & Gynecology; Visit Provider Obstetrics & Gynecology
DX: E66.8 Other obesity (principal); Z68.41 Body mass index [BMI] 40.0-44.9, adult; Z71.3 Dietary counseling and surveillance
CPT/HCPCS: 36415; 80053; 85025

== ENCOUNTER → 2023-06-20 | Outpatient (CLI) | payer OTHER, SELFPAY ==
--- NOTE | 2023-06-20 14:53 | ECHOD_ITS ---
Reason For Study: MURMUR Procedure This was a 2D Doppler, Color Flow transthoracic echocardiogram. Exam performed in department. Left Ventricle Normal LV size. Left ventricular systolic function is normal. The estimated ejection fraction is 60 %. Normal diastololic function. No regional wall motion abnormalities noted. Right Ventricle Normal RV size. Normal systolic function. Atria Normal left atrium. Normal right atrium. Mitral Valve Normal mitral valve. Tricuspid Valve Normal tricuspid valve. Mild tricuspid valve insufficiency. Pulmonary artery systolic pressure is 25 mmHg. Aortic Valve Normal aortic valve. Trisinus/trileaflet aortic valve. Pulmonic Valve Normal pulmonic valve. Great Vessels Normal aortic root. The pulmonary artery is normal size. Normal inferior vena cava. Pericardium/Pleural No pericardial effusion. MMode/2D Measurements & Calculations LVIDd: 4.8 cm IVSd: 0.76 cm Ao root diam: 2.6 cm LVIDs: 3.2 cm LVPWd: 0.66 cm RVDd: 3.1 cm FS: 33.5 % LAV(MOD-bp): 42.4 ml LVAd ap4: 33.8 cm2 SV(MOD-sp4): 64.1 ml LAV(MOD-bp) Indexed: 21.1 ml/m2 LVLd ap4: 8.7 cm LAV(MOD-sp2): 42.1 ml EDV(MOD-sp4): 105.0 ml LAV(MOD-sp4): 41.5 ml EDV(sp4-el): 111.5 ml LVAs ap4: 18.0 cm2 LVLs ap4: 6.9 cm ESV(MOD-sp4): 40.8 ml ESV(sp4-el): 40.0 ml EF(MOD-sp4): 61.1 % EF(sp4-el): 64.1 % SV(sp4-el): 71.5 ml LA A4 area: 17.2 cm2 LA dimension(2D): 3.1 cm RA A4 area: 14.6 cm2 Time Measurements MV dec time: 0.20 sec Doppler Measurements & Calculations MV E max trip: 113.2 cm/sec Lat Peak E' Trip: 17.1 cm/sec Med Peak E' Trip: 14.4 cm/sec MV A max trip: 79.5 cm/sec E/E' lat: 6.6 E/E' med: 7.9 MV E/A: 1.4 Ao V2 max: 171.7 cm/sec LV V1 max: 157.0 cm/sec PA V2 max: 127.0 cm/sec Ao max P.8 mmHg LV V1 max P.9 mmHg TR max trip: 235.6 cm/sec TR max P.2 mmHg ECHO/Echo Complete Interpretation Summary Normal LV size. Left ventricular systolic function is normal. The estimated ejection fraction is 60 %. Pulmonary artery systolic pressure is 25 mmHg. Ordering Physician: Danisha Kelly Referring Physician: Danisha Kelly Performed By: Delmy Hopkins RDCS
== END | disposition home or self-care (01) ==
LOC: CVS 14:52
PROVIDERS: Referring Provider Obstetrics & Gynecology; Visit Provider Obstetrics & Gynecology
DX: R01.1 Cardiac murmur, unspecified (principal)
CPT/HCPCS: 93306

== ENCOUNTER → 2023-09-17 | Outpatient (CLI) | payer OTHER, SELFPAY ==
[2023-09-17 17:53] LABS: Hematocrit 39.7 % (37-47); Hemoglobin 12.9 g/dL (12.0-15.0); Mean Corp Hgb Conc 32.5 g/dL (32-36); Mean Corpuscular Hgb 27.5 pg (27.0-32.0); Mean Corpuscular Volume 84.6 fL (81-99); Mean Platelet Vol. 10.7 fl (6.2-12.0); Platelet Count 326 K/mm3 (150-450); RBC Distribution Width CV 13.8 % (11.6-14.6); RBC Distribution Width SD 42.5 fl (35.1-43.9); Red Blood Count 4.69 M/mm3 (4.2-5.4); White Blood Count 8.3 K/mm3 (4.4-11.0)
[2023-09-17 18:19] LABS: Thyroid Stim Hormone (TSH) 1.06 uIU/mL (0.358-3.74)
== END | disposition home or self-care (01) ==
LOC: LAB 16:40
PROVIDERS: Nurse Practitioner Women's Health; Referring Provider Obstetrics & Gynecology; Visit Provider Obstetrics & Gynecology
DX: N93.9 Abnormal uterine and vaginal bleeding, unspecified (principal)
CPT/HCPCS: 36415; 84443; 85027

== ENCOUNTER → 2023-12-19 | Outpatient (CLI) | payer OTHER, SELFPAY | END | disposition home or self-care (01) | LOC: LABSPEC 14:22 | PROVIDERS: Referring Provider Obstetrics & Gynecology; Visit Provider Obstetrics & Gynecology | DX: N93.0 Postcoital and contact bleeding (principal) | CPT/HCPCS: 87070; 87205 ==

== ENCOUNTER → 2023-12-31 | Outpatient (CLI) | payer OTHER, SELFPAY ==
--- NOTE | 2023-12-31 16:18 | US_ITS ---
STUDY: ULTRASOUND OF THE FEMALE PELVIS - LIMITED REASON FOR EXAM: Female, 33 years old Aub TECHNIQUE: Transabdominal and Transvaginal TECHNICAL QUALITY: Adequate. COMPARISON: Pelvic ultrasound December 31, 2023 FINDINGS: The uterus is anteverted and is in a midline position. The uterus measures 8.7 x 5 x 4.2 cm. Normal uterine cervix. The endometrium measures 2.4 mm in thickness, and is partially filled with fluid. There is no demonstrated endometrial mass. There is no demonstrated myometrial mass. The right ovary measures 3 x 2.3 x 1.7 cm. There is no right ovarian cyst or ovarian mass. There is no visualized right adnexal mass or complex lesion. There is normal arterial and normal venous vascularity. The left ovary measures 2.5 x 1.6 x 1.6 cm. There is no left ovarian cyst or ovarian mass. There is no visualized left adnexal mass or complex lesion. There is normal arterial and normal venous vascularity. There is no fluid in the cul-de-sac. US/Transvaginal Non- IMPRESSION: Small amount of free fluid in the endometrial cavity otherwise unremarkable exam Electronically Signed: Tyrell Huizar MD at 0:04 EST ,
== END | disposition home or self-care (01) ==
LOC: US 16:15
PROVIDERS: Referring Provider Obstetrics & Gynecology; Visit Provider Obstetrics & Gynecology
DX: N93.0 Postcoital and contact bleeding (principal)
CPT/HCPCS: 76830; 76856

== ENCOUNTER → 2024-09-30 | Outpatient (CLI) | payer OTHER, SELFPAY | END | disposition home or self-care (01) | LOC: OPBI 14:29 | PROVIDERS: Referring Provider Nurse Practitioner Women's Health; Visit Provider Nurse Practitioner Women's Health | DX: N63.20 Unspecified lump in the left breast, unspecified quadrant (principal) | CPT/HCPCS: 76642; 77062; 77066; G0279 ==

== ENCOUNTER → 2024-12-28 | Outpatient (CLI) | payer OTHER, SELFPAY ==
[2024-12-28 10:29] LABS: Absolute Lymphocyte Count 1.81 X10^3/uL (0.83-4.51); Absolute Neutrophil Count 3.4 X10^3/uL (2.0-7.7); Basophil# 0.06 X10^3/uL; Eosinophils% 1.7 % (0-5); Hematocrit 42.4 % (37-47); Hemoglobin 13.8 g/dL (12.0-15.0); Lymphocyte # 1.81 X10^3/ul (0.83-4.51); Lymphocyte % 31.2 % (19-41); Mean Corp Hgb Conc 32.5 g/dL (32-36); Mean Corpuscular Hgb 28.3 pg (27.0-32.0); Mean Corpuscular Volume 87.1 fL (81-99); Mean Platelet Vol. 10.3 fl (6.2-12.0); Monocyte# 0.41 X10^3/uL; Monocyte% 7.1 % (0-10); NRBC Flagged by Analyzer 0 % (0-5); Neutrophil % 58.7 % (47-70); Platelet Count 265 K/mm3 (150-450); RBC Distribution Width CV 12.6 % (11.6-14.6); RBC Distribution Width SD 40.1 fl (35.1-43.9); Red Blood Count 4.87 M/mm3 (4.2-5.4); White Blood Count 5.8 K/mm3 (4.4-11.0)
[2024-12-28 10:58] LABS: Vitamin D,25 Hydroxy 20.4 ng/mL
[2024-12-28 11:16] LABS: ALB/GLOB Ratio 1.1 RATIO (0.9-2.4); AST(SGOT) 10 U/L (15-37); Alanine Aminotransfer ALT/SGPT 24 U/L (13-56); Albumin, Serum 3.9 g/dL (3.2-5.0); Alkaline Phosphatase 52 U/L (45-117); Anion Gap 8 (5-15); BUN 10 mg/dL (7-18); BUN/Creat Ratio 9.3 RATIO (10-20); Calcium,Total 9.2 mg/dL (8.5-10.1); Chloride 109 mmol/L (98-107); Cholesterol 159 mg/dL (200); Creatinine, Serum 1.07 mg/dL (0.55-1.02); EST Glomerular Filtration Rate 62 mL/min (>60); Est Glom Filt Rate - Afr Amer 76 mL/min (>60); Globulin 3.7 g/dL (2.2-4.2); Glucose 91 mg/dL (74-106); High Density Lipoprotein 50 mg/dL; Potassium 3.6 mmol/L (3.5-5.1); Protein, Total 7.6 g/dL (6.4-8.2); Sodium Level 138 mmol/L (136-145); Triglycerides 60 mg/dL; Very Low Density Lipoprotein 12 mg/dL (5-40)
== END | disposition home or self-care (01) ==
LOC: BWCLAB 08:46
PROVIDERS: Referring Provider Obstetrics & Gynecology; Visit Provider Obstetrics & Gynecology
DX: Z13.0 Encounter for screening for diseases of the blood and blood-forming organs and certain disorders involving the immune mechanism (principal); Z13.220 Encounter for screening for lipoid disorders; Z13.1 Encounter for screening for diabetes mellitus; Z13.29 Encounter for screening for other suspected endocrine disorder; E66.3 Overweight
CPT/HCPCS: 36415; 80053; 80061; 82306; 83036; 85025

== ENCOUNTER → 2025-02-04 | Outpatient (CLI) | payer OTHER, SELFPAY ==
[2025-02-04 13:16] LABS: Anion Gap 12 (5-15); BUN 12 mg/dL (4-19); BUN/Creat Ratio 11.7 RATIO (10-20); Calcium,Total 9.2 mg/dL (7.6-11.0); Carbon Dioxide 18.7 mmol/L (21.0-32.0); Chloride 108 mmol/L (98-108); EST Glomerular Filtration Rate 76 (>60); Glucose 94 mg/dL (70-99); Potassium 4.2 mmol/L (3.3-5.1); Sodium Level 138 mmol/L (133-145)
== END | disposition home or self-care (01) ==
LOC: BWCLAB 08:31
PROVIDERS: Referring Provider Obstetrics & Gynecology; Visit Provider Obstetrics & Gynecology
DX: E86.0 Dehydration (principal)
CPT/HCPCS: 36415; 80048

== ENCOUNTER → 2025-04-26 | Outpatient (CLI) | payer OTHER, SELFPAY ==
--- NOTE | 2025-04-26 16:37 | US_ITS ---
PROCEDURE: PELVIC W/ TRANSVAGINAL 04/26/2025 REASON FOR EXAM: AUB TECHNIQUE: Transabdominal and transvaginal pelvic ultrasound. Color and spectral doppler analysis of the ovaries. COMPARISON: Pelvic ultrasound on 12/31/2019. FINDINGS: Measurements: Uterus: 7.4 x 3.7 x 5.9 cm for volume of 83.7 mL Endometrial Thickness: 0.4 cm Right Ovary: 2.0 x 1.6 x 1.7 cm for volume of 2.9 mL Left Ovary: 2.7 x 1.8 x 2.1 cm for volume of 5.1 mL Uterus: Retroverted. Normal contour and myometrial echotexture. Nabothian cysts at the cervix. There is a punctate calcification near the cervix, of doubtful clinical significance. Endometrium: Normal echotexture. Right ovary: Normal size and echotexture. Left ovary: Normal size and echotexture. Other adnexal findings: None. Cul-de-sac: No free intraperitoneal fluid identified. DOPPLER: Color Doppler: Normal color flow doppler signal at both ovaries. Spectral Doppler: Normal arterial inflow and venous outflow signal at both ovaries. US/Pelvic w/ Transvaginal IMPRESSION: NORMAL TRANSABDOMINAL AND TRANSVAGINAL PELVIC ULTRASOUND WITH DOPPLER. Reading Location: [facility]
== END | disposition home or self-care (01) ==
LOC: OPUS 16:16 → US 16:30
PROVIDERS: Referring Provider Obstetrics & Gynecology; Visit Provider Obstetrics & Gynecology
DX: N93.9 Abnormal uterine and vaginal bleeding, unspecified (principal)
CPT/HCPCS: 76830; 76856

== ENCOUNTER 2025-06-20 23:10 | Emergency (ER) | payer OTHER, SELFPAY ==
[2025-06-20 23:12] VITALS: BP 150/90; PULSE 81; RESP 16; TEMP 36.7; O2SAT 100; BMI 31.8
--- OUTSIDE RECORDS SUMMARY | 2025-06-20 23:26 | XMS RPT_ITS | CCD ---
Author Organization [facility] Care Team Providers Care Sales Correspondence Clerk Name Role Phone Care Physician, No Primary Primary Care Provider Unavailable Care Physician, No Primary Referring Provider Un available Dr. Danisha Kelly Attending Provider Care Physician, No Primary Primary Care Provider Unavailable Care Physician, No Primary Referring Provider Un available Dr. Danisha Kelly Attending Provider Dr. Tj Anton Attending Provider [phone] Care Physician, No Primary Primary Care Provider Unavailable Care Physician, No Primary Referring Provider Un available Dr. Danisha Kelly Attending Provider [phone] Care Physician, No Primary Primary Care Provider Unavailable Care Physician, No Primary Referring Provider Un available Dr. Danisha Kelly MD Attending Provider Dr. Danisha Kelly MD Referring Provider [phone] Care Physician, No Primary Primary Care Provider Unavailable Dr. Danisha Kelly MD Attending Provider Dr. Danisha Kelly MD Referring Provider [phone] Care Physician, No Primary Referring Provider Un available Danisha Kelly Referring Unavailable Care Physician, No Primary Primary Care Unava ilable Danisha Kelly Attending Unavailable Danisha Kelly Attending Unavailable Care Physician, No Primary Primary Care Unava ilable Danisha Kelly Referring Unavailable Vahid Serna Attending Unavailable Care Physician, No Primary Primary Care Unava ilable Danisha Kelly Attending Unavailable Care Physician, No Primary Referring Unava ilable Care Physician, No Primary Primary Care Unava ilable Care Physician, No Primary Primary Care Unava ilable Care Physician, No Primary Referring Unava ilable Danisha Kelly Attending Unavailable Care Physician, No Primary Primary Care Unava ilable Care Physician, No Primary Referring Unava ilDanisha Bansal Attending Unavailable Care Physician, No Primary Primary Care Unava ilable Yokasta Mohr Attending Unavailable Yokasta Mohr Referring Unavailable Care Physician, No Primary Primary Care Unava ilDanisha Bansal Referring Unavailable Danisha Kelly Attending Unavailable Allergies Allergy Classification Reported Allergen(s) Allergy Type Date of Onset Reaction(s) Facility (8 sources) Latex Allergy to substance 05-09-2021 Swelling [facility] (8 sources) Penicillins Allergy to substance 05-09-2021 Rash [facility] (1 source) Latex Drug allergy (disorder) 06-20-2025 [facility] Repository (1 source) Penicillins Drug allergy (disorder) 06-20-2025 [facility] Repository Medications Current Medications Medication Drug Class(es) Dates Sig (Normalized) Sig (Original) L Norgest/E.Estradio l-E.Estrad (20 sources) Progestin, Estrogen, Progestin-containin g Intrauterine Device Start: 04-29-2025 take 1 tablet by mouth once daily L Norgest/E.Estradi ol-E.Estrad (Ashlyna) 0.15 mg-30 mcg (84)/10 mcg (7) tablets,dose pack,3 month Active 1 {tbl} PO DAILY April 29, 2025 8:08am Active pills only for continuous cycling Start: 05-21-2024 End: 03-01-2025 take 1 tablet by mouth once daily L Norgest/E.Estradiol-E.Estrad (Ashlyna) 0.15 mg-30 mcg (84)/10 mcg (7) tablets,dose pack,3 month Discontinued 1 {tbl} PO DAILY 84 May 21, 2024 12:06pm March 01, 2025 1:38pm Active pills only for continuous cycling Start: 05-21-2024 take 1 tablet by jean claude th once daily L Norgest/E.Estradiol-E.Estrad (Ashlyna) 0.15 mg-30 mcg (84)/10 mcg (7) tablets,dose pack,3 month Active 1 {tbl} PO DAILY May 21, 2024 12:06pm Active pills only for continuous cycling Start: 12-24-2023 End: 05-21-2024 take 1 tablet by mouth once daily L Norgest/E.Estradiol-E.Estrad (Ashlyna) 0.15 mg-30 mcg (84)/10 mcg (7) tablets,dose pack,3 month Discontinued 1 {tbl} PO DAILY 91 84 December 24, 2023 3:19pm May 21, 2024 12:06pm Active pills only for continuous cycling Start: 12-24-2023 take 1 tablet by jean claude th once daily L Norgest/E.Estradiol-E.Estrad (Ashlyna) 0.15 mg-30 mcg (84)/10 mcg (7) tablets,dose pack,3 month Active 1 TABLET PO DAILY 91 December 24, 2023 2:19pm Active pills only for continuous cycling Start: 12-24-2023 End: 12-24-2023 take 1 tablet by mouth once daily L Norgest/E.Estradiol-E.Estrad (Ashlyna) 0.15 mg-30 mcg (84)/10 mcg (7) tablets,dose pack,3 month Discontinued 1 {tbl} PO DAILY 84 December 24, 2023 3:16pm December 24, 2023 3:19pm Active pills only for continuous cycling Start: 12-24-2023 End: 12-24-2023 take 1 tablet by mouth once daily L Norgest/E.Estradiol-E.Estrad (Ashlyna) 0.15 mg-30 mcg (84)/10 mcg (7) tablets,dose pack,3 month Discontinued 1 TABLET PO DAILY 84 December 24, 2023 2:16pm December 24, 2023 2:19pm Active pills only for continuous cycling Start: 12-19-2023 End: 12-24-2023 take 1 tablet by mouth once daily L Norgest/E.Estradiol-E.Estrad (Ashlyna) 0.15 mg-30 mcg (84)/10 mcg (7) tablets,dose pack,3 month Discontinued 1 {tbl} PO DAILY 182 December 19, 2023 2:25pm December 24, 2023 3:16pm Active pills only for continuous cycling Start: 12-19-2023 End: 12-24-2023 take 1 tablet by mouth once daily L Norgest/E.Estradiol-E.Estrad (Ashlyna) 0.15 mg-30 mcg (84)/10 mcg (7) tablets,dose pack,3 month Discontinued 1 TABLET PO DAILY December 19, 2023 1:pm December 24, 2023 2:16pm Active pills only for continuous cycling Start: 12-19-2023 take 1 tablet by jean claude th once daily L Norgest/E.Estradiol-E.Estrad (Ashlyna) 0.15 mg-30 mcg (84)/10 mcg (7) tablets,dose pack,3 month Active 1 TABLET PO DAILY December 19, 2023 1:25pm Active pills only for continuous cycling Start: 09-10-2023 End: 12-19-2023 take 1 tablet by mouth once daily L Norgest/E.Estradiol-E.Estrad (Ashlyna) 0.15 mg-30 mcg (84)/10 mcg (7) tablets,dose pack,3 month Discontinued 1 {tbl} PO DAILY September 10, 2023 4:15pm December 19, 2023 2:27pm Active pills only for continuous cycling Start: 09-10-2023 End: 12-19-2023 take 1 tablet by mouth once daily L Norgest/E.Estradiol-E.Estrad (Ashlyna) 0.15 mg-30 mcg (84)/10 mcg (7) tablets,dose pack,3 month Discontinued 1 TABLET PO DAILY September 10, 2023 3:15pm December 19, 2023 1:27pm Active pills only for continuous cycling Start: 03-22-2023 End: 09-10-2023 take 1 tablet by mouth once daily L Norgest/E.Estradiol-E.Estrad (Ashlyna) 0.15 mg-30 mcg (84)/10 mcg (7) tablets,dose pack,3 month Discontinued 1 {tbl} PO DAILY March 22, 2023 12:00am September 10, 2023 4:16pm Start: 03-22-2023 End: 09-10-2023 take 1 tablet by mouth once daily L Norgest/E.Estradiol-E.Estrad (Ashlyna) 0.15 mg-30 mcg (84)/10 mcg (7) tablets,dose pack,3 month Discontinued 1 TABLET PO DAILY March 21, 2023 11:00pm September 10, 2023 3:16pm Start: 03-22-2023 take 1 tablet by jean claude once daily L Norgest/E.Estradiol-E.Estrad (Ashlyna) 0.15 mg-30 mcg (84)/10 mcg (7) tablets,dose pack,3 month Active 1 TABLET PO DAILY March 22, 2023 12:00am Completed/Discontinued Medications Medication Drug Class(es) Dates Sig (Normalized) Sig (Original) acetaminophen 325 mg / oxyCODONE hydrochloride 5 mg oral tablet (8 sources) Opioid Agonist Start: 09-29-2018 End: 10-06-2018 Oxycodone-Acetamino phen 1 TABLET tablet Discontinued 1 - 2 {tbl} PO EVERY 4 HOURS NEEDED as needed for Mod-Severe Pain (-09/03) 13 06September 29, 2018 1:00am October 05, 2018 1:00am October 06, 2018 1:10am 1-2 po q 6 hr prn severe pain Start: 09-29-2018 End: 10-06-2018 take 1 tablet by mouth every six hours as needed for pain Oxycodone-Acetaminophen Discontinued 1 - 2 TABLET PO EVERY 4 HOURS NEEDED 13 06September 29, 2018 12:00am October 06, 2018 12:10am 1-2 po q 6 hr prn severe pain acyclovir 800 mg oral tablet (5 sources) Herpesvirus Nucleoside Analog DNA Polymerase Inhibitor, Herpes Simplex Virus Nucleoside Analog DNA Polymerase Inhibitor, Herpes Zoster Virus Nucleoside Analog DNA Polymerase Inhibitor Start: 07-17-2023 End: 12-19-2023 take 1 tablet by mouth twice daily Acyclovir 800 mg tablet Discontinued 800 mg PO TWICE A DAY July 17, 2023 12:00am December 19, 2023 2:06pm azelastine hydrochloride 0.137 mg/actuat / fluticasone propionate 0.05 mg/actuat metered dose nasal spray (5 sources) Corticosteroid, Histamine-1 Receptor Antagonist Start: 07-03-2023 End: 12-25-2024 Azelastine-Flutica sone (Dymista) 137-50 mcg/spray spray,non-aerosol Discontinued 1 NMA INTRANASAL TWICE A DAY July 03, 2023 12:00am December 25, 2024 9:03am administer into each nostril Start: 07-03-2023 take 1 spray(s) nasa l route twice daily Azelastine-Fluticasone (Dymista) 137-50 mcg/spray spray,non-aerosol Active 1 SPRAY INTRANASAL TWICE A DAY July 02, 2023 11:00pm administer into each nostril azithromycin 250 mg oral tablet (6 sources) Macrolide Antimicrobial Start: 12-03-2024 End: 12-25-2024 Azithromycin (Zithromax Z-Jet) 250 mg tablet Discontinued 0 PO .COMPLEX December 03, 2024 1:00am December 25, 2024 9:03am For 250 mg dose pack: take 500 mg today (day 1), then 250 mg for 4 days (days 2-5) PO Start: 06-11-2024 End: 06-26-2024 Azithromycin (Zithromax Z-Pa k) 250 mg tablet Discontinued 0 PO .COMPLEX June 11, 2024 12:00am June 26, 2024 8:24am For 250 mg dose pack: take 500 mg today (day 1), then 250 mg for 4 days (days 2-5) PO cephalexin 500 mg oral tablet (3 sources) Cephalosporin Antibacterial Start: 03-30-2024 End: 04-06-2024 take 1 tablet by mouth twice daily Cephalexin 500 mg tablet Discontinued 500 mg PO TWICE A DAY 14 March 30, 2024 12:00am April 05, 2024 12:00am April 06, 2024 12:06am docusate sodium 100 mg oral tablet (8 sources) Start: 05-09-2021 End: 12-14-2022 take 1 tablet by mouth twice daily as needed for constipation Docusate Sodium 100 mg tablet Discontinued 100 mg PO TWICE A DAY as needed for constipation 60 May 09, 2021 12:00am December 14, 2022 2:37pm Norgestimate-Eth inyl Estradiol (2 sources) Progestin, Estrogen Start: 03-01-2025 End: 05-10-2025 Norgestimate-Ethi nyl Estradiol (Sprintec (28)) 0.25-35 mg-mcg tablet Discontinued 1 {tbl} PO daily 84 March 01, 2025 12:00am May 10, 2025 8:10am Start: 03-01-2025 Norgestimate-E thinyl Estradiol (Sprintec (28)) 0.25-35 mg-mcg tablet Active 1 {tbl} PO daily 84 March 01, 2025 12:00am methylPREDNISolone 4 mg oral tablet (5 sources) Corticosteroid Start: 10-08-2023 End: 12-19-2023 take 1 tablet by mouth once Methylprednisolone (Medrol (Jet)) 4 mg tablets,dose pack Discontinued 0 PO per package directions October 08, 2023 1:00am December 19, 2023 2:05pm PO PER PKG DIR norethindrone acetate 5 mg oral tablet (2 sources) Start: 04-06-2025 End: 05-10-2025 Norethindrone Acetate 5 mg tablet Discontinued 5 mg PO .COMPLEX April 06, 2025 12:00am May 10, 2025 8:10am 5 mg PO BID x 3 days and then once daily for remainder ondansetron 4 mg disintegrating oral tablet (3 sources) Serotonin-3 Receptor Antagonist Start: 11-30-2024 End: 12-25-2024 take 1 tablet by mouth every six hours as needed for nausea and vomiting Ondansetron 4 mg tablet,disintegrating Discontinued 4 mg PO EVERY 6 HOURS as needed for nausea and vomiting November 30, 2024 1:00am December 25, 2024 9:03am oxyCODONE hydrochloride 5 mg oral capsule (16 sources) Opioid Agonist Start: 05-09-2021 End: 12-14-2022 take 1 capsule by mouth every six hours as needed for pain Oxycodone 5 mg capsule Discontinued 5 mg PO EVERY 6 HOURS as needed for pain 07 06May 09, 2021 December 14, 2022 2:37pm Start: 02-16-2019 End: 02-23-2019 take 1 tablet by mouth every six hours as needed for pain Oxycodone 5 MG tablet Discontinued 5 mg PO EVERY 6 HOURS NEEDED as needed for Severe Pain (6-10/10) 13 06February 16, 2019 12:00am February 22, 2019 12:00am February 23, 2019 12:08am phentermine hydrochloride 37.5 mg oral tablet (20 sources) Sympathomimetic Amine Anorectic Start: 09-19-2023 End: 12-25-2024 take 1 tablet by mouth once daily Phentermine (Adipex-P) 37.5 mg tablet Discontinued 37.5 mg PO daily January 17, 2024 4:35pm June 29, 2024 10:20am BMI 28 Start: 03-22-2023 End: 09-19-2023 Phentermine (Adipex-P) 37.5 mg tablet Discontinued 18.75 mg PO daily June 25, 2023 1:22pm September 19, 2023 9:34am BMI 32 Start: 12-28-2022 End: 03-22-2023 take 1 tablet by mouth once daily Phentermine (Adipex-P) 37.5 mg tablet Discontinued 37.5 mg PO daily January 25, 2023 10:30am February 22, 2023 4:39pm Vit,[id number]-Lenhb (Prenatabs Fa) 1 TABLET tablet (8 sources) Start: 09-28-2018 End: 12-14-2022 take 1 tablet by mouth once daily Vit,[id number]-Ozbto (Prenatabs Fa) 1 TABLET tablet Discontinued 1 {tbl} PO DAILY September 28, 2018 12:00am December 14, 2022 2:38pm Start: 09-28-2018 End: 12-14-2022 take 1 tablet by mouth once daily Vit,[id number]-Vlrk-Iooif (Prenatab s Fa) 1 TABLET tablet Discontinued 1 TABLET PO DAILY September 28, 2018 12:00am December 14, 2022 2:38pm Start: 09-28-2018 End: 12-14-2022 take 1 tablet by mouth once daily Vit,Ksal52-Dgja-Allbe (Prenatab s Fa) 1 TABLET tablet Discontinued 1 TABLET PO DAILY September 27, 2018 11:00pm December 14, 2022 1:38pm sulfamethoxazole 800 mg / trimethoprim 160 mg oral tablet (2 sources) Dihydrofolate Reductase Inhibitor Antibacterial, Sulfonamide Antimicrobial Start: 03-18-2025 End: 03-25-2025 Sulfamethoxazole-Trimethopri m (Bactrim Ds) 800-160 mg tablet Discontinued 1 {tbl} PO TWICE A DAY 07 06March 18, 2025 12:00am March 24, 2025 12:00am March 25, 2025 12:10am topiramate 25 mg oral tablet (17 sources) Start: 09-19-2023 End: 12-28-2024 take 2 tablets by mouth twice daily before breakfast Topiramate 25 mg tablet Discontinued 50 mg PO TWICE A DAY 120 January 17, 2024 4:35pm December 28, 2024 7:46am take before breakfast and before dinner Start: 09-19-2023 take 50 mg by mouth twice daily before breakfast Topiramate Active 50 MG PO TWICE A DAY 120 September 19, 2023 8:33am take before breakfast and before dinner Start: 06-14-2023 End: 09-19-2023 take 1 tablet by mouth twice daily before breakfast Topiramate (Topamax) 25 mg tablet Discontinued 25 mg PO TWICE A DAY 60 June 14, 2023 12:00am September 19, 2023 9:34am take before breakfast and before dinner Problems Active Problems Problem Classification Problem Date Documented Date Episodic/Chronic Abdominal pain (8 sources) Flank pain; Translations: [Unspecified abdominal pain] 12-14-2022 Episodic Genitourinary symptoms and ill-defined conditions (8 sources) Microscopic hematuria; Translations: [Other microscopic hematuria] 12-14-2022 Episodic Heart valve disorders (7 sources) Systolic murmur; Translations: [Cardiac murmur, unspecified] 06-14-2023 Episodic Comment on above: noted on exam on 05/26, s/p ekg, echo, and cardio eval. resolved Nausea and vomiting (8 sources) Nausea and vomiting; Translations: [Nausea with vomiting, unspecified] 12-14-2022 Episodic Other complications of ; puerperium affecting management of mother (2 sources) delivery - delivered; Translations: [Encounter for delivery without indication] 12-14-2022 Episodic Other complications of ; puerperium affecting management of mother (6 sources) Deliveries by ; Translations: [Encounter for delivery without indication] 12-14-2022 Episodic Comment on above: x3 Other complications of (8 sources) Kidney stone; Translations: [ related renal disease, unspecified trimester] 12-14-2022 Episodic Other female genital disorders (7 sources) Abnormal uterine bleeding; Translations: [Abnormal uterine and vaginal bleeding, unspecified] 06-14-2023 Chronic Comment on above: ocp changed Other female genital disorders (7 sources) Abnormal uterine and vaginal bleeding, unspecified; Translations: [Unspecified disorders of menstruation and other abnormal bleeding from female genital tract] Onset: 04-29-2025 03-22-2023 Chronic Other female genital disorders (5 sources) Postcoital bleeding; Translations: [Postcoital and contact bleeding] 12-19-2023 Chronic Comment on above: ultrasound ordered Other female genital disorders (2 sources) Postcoital and contact bleeding; Translations: [Postcoital bleeding] 12-19-2023 Chronic Other nervous system disorders (8 sources) Acute postoperative pain; Translations: [Other acute postprocedural pain] 12-14-2022 Episodic Other nutritional; endocrine; and metabolic disorders (9 sources) Obesity; Translations: [Other obesity] 12-14-2022 Chronic Comment on above: Nutrition plan: cont inue with [address] balanced [employer].Medication plan-increase to full tab for 1 month phentermine then back down to 1/2 and topamax 50 BID control: BS. s/p27% loss behavior plan: encouraged electronic journaling exercise: resistance training and cardio exercise weekly. fu 3 months. next goal under 180 Other nutritional; endocrine; and metabolic disorders (8 sources) Body mass index 40+ - severely obese; Translations: [Body mass index (BMI) 40.0-44.9, adult] 12-15-2022 Chronic Other nutritional; endocrine; and metabolic disorders (2 sources) Body mass index (BMI) 40.0-44.9, adult; Translations: [Body Mass Index 40.0-44.9, adult] 12-14-2022 Chronic Other nutritional; endocrine; and metabolic disorders (8 sources) Other obesity; Translations: [Obesity, unspecified] 12-14-2022 Chronic Other nutritional; endocrine; and metabolic disorders (12 sources) Body mass index 30+ - obesity; Translations: [Body mass index (BMI) 32.0-32.9, adult] 06-14-2023 Chronic Other nutritional; endocrine; and metabolic disorders (1 source) Body mass index (BMI) 32.0-32.9, adult; Translations: [Body Mass Index 32.0-32.9, adult] 03-22-2023 Chronic Other nutritional; endocrine; and metabolic disorders (3 sources) Body mass index (BMI) 31.0-31.9, adult; Translations: [Body Mass Index 31.0-31.9, adult] 06-14-2023 Chronic Other nutritional; endocrine; and metabolic disorders (6 sources) Abnormal weight gain; Translations: [Abnormal weight gain] 12-19-2023 Episodic Comment on above: adipex. Other nutritional; endocrine; and metabolic disorders (12 sources) Overweight in adulthood with body mass index of 25 or more but less than 30; Translations: [Body mass index (BMI) 28.0-28.9, adult] 12-19-2023 Episodic Comment on above: SW- 253 /p 27% lostannual labs ordered ekg and echo reviewed Other nutritional; endocrine; and metabolic disorders (4 sources) Body mass index (BMI) 28.0-28.9, adult; Translations: [Body Mass Index 28.0-28.9, adult] 09-19-2023 Episodic Other nutritional; endocrine; and metabolic disorders (2 sources) Abnormal weight gain; Translations: [Abnormal weight gain] 12-19-2023 Episodic Other nutritional; endocrine; and metabolic disorders (2 sources) Body mass index (BMI) 27.0-27.9, adult; Translations: [Body Mass Index 27.0-27.9, adult] 12-19-2023 Episodic Other nutritional; endocrine; and metabolic disorders (3 sources) Overweight; Translations: [Overweight] 12-28-2024 Episodic Residual codes; unclassified (8 sources) Gestation period, 19 weeks; Translations: [19 weeks gestation of ] 12-14-2022 Episodic Skin and subcutaneous tissue infections (3 sources) Cellulitis; Translations: [Cellulitis, unspecified] 03-30-2024 Episodic Comment on above: right ankle. Antibio tic sent Sprains and strains (8 sources) Sprain of ankle; Translations: [Sprain of unspecified ligament of unspecified ankle, initial encounter] 02-20-2021 Episodic Past or Other Problems Problem Classification Problem Date Documented Da te Episodic/Chronic Fluid and electrolyte disorders (4 sources) Dehydration; Translations: [Dehydration] Onset: 02-14-2025 12-29-2024 Episodic Nonmalignant breast conditions (4 sources) Breast lump; Translations: [Unspecified lump in the left breast, unspecified quadrant] Onset: 10-25-2024 09-23-2024 Episodic Comment on above: [place], outer left . Imaging Other screening for suspected conditions (not mental disorders or infectious disease) (13 sources) Patient encounter status; Translations: [Encounter for screening for diabetes mellitus] Onset: 01-12-2025 12-28-2024 Episodic Results Test Name Value Interpretation Reference Range Facility Office Visit Reporton 2024 Office Visit Report [facility] [place] [address] OFFICE VISIT Date of Service: 05/10/25 MR#: [id number] Acct: [id number] Patient: AISHA VALENTE Rep #: [id number] : 1990 Provider: Dr. Danisha hughes MD Age/Sex: 34/F Location: [facility] [place] Status: Signed with Addenda ADDENDUM by Dr. Danisha Kelly MD on 05/18/25 at 1122 Assessment Plan (1) Abnormal weight gain: COMMENT: adipex. (2) BMI 27.0-27.9,adult: COMMENT: SW- 253 12/17 s/p 27% lost annual labs ordered ekg and echo reviewed 05/18/25 1122 Date Danisha Kelly MD cc: * Signed Intake Vital Signs 12/25/24 08:06 05/10/25 08:02 Height 5 ft 8 in 5 ft 8 in Weight: 186 lb 3 oz BMI 28.3 BP 119/81 H Pulse 84 Intake Visit Reasons: BP/HR/Weight Check Emergency Medical Technician/Driver Required: No Is patient in pain?: No Allergies latex Allergy (Verified 05/10/25 08:02) Swelling Penicillins Allergy (Verified 05/10/25 08:02) Rash Medications ???Medication ???Instructions ???Recorded ???Confirmed ???Type topiramate 25 mg tablet 50 mg (2 x 25 mg) PO BID #120 tabs 12/28/24 12/28/24 Rx Ashlyna 0.15 mg-30 mcg (84)/10 1 tab PO DAILY 84 days #91 tabs Rx mcg(7) tablets,3 month dose pack (L norgest/e.estradiol- e.estrad) phentermine 37.5 mg tablet 37.5 mg PO QDAY #30 tabs 05/10/25 05/10/25 Rx (Adipex-P) Is last menstrual period known: No Post menopausal: No Patient : No Have you fallen in the past year?: No Nursing Note patient seen for obesity related comorbidities/weight management medication follow up. WM questionnaire answers reviewed with patient, and any questions answered. support given to patient consistent with treatment plan. vitals taken and script renewed by provider if appropriate. all relevant findings reviewed with the provider, script renewed if appropriate, and any changes to current treatment as well as the follow up plan reviewed with patient. [place]AR[place] reviewed and remains compliant to controlled medication rules and regulations at this time Questionnaires Weight Management Follow-Up What nutritional plan/diet are you following?: High protein How are you tracking your food intake?: I dont On average, how many days a week are you recording your food intake?: 0 What is your current weekly exercise?: Strength training/ cardio/ walking at least 5days a week On a scale of 1-10, how difficult is it to follow your current weight management plan?: 4 What are you struggling most with right now in following your weight loss plan?: Cravings/binge eating in the afternoon Are there any changes we need to make to your current plan right now?: not at the moment Side Effects: No Chest Pain, No Palpitations, No Increased Heart Rate, No Irregular Heart Rhythm, No Increased Blood Pressure, No Change in breathing patterns, No Kidney Stones, No Change in vision, No Insomnia, No Difficulty with memory/speech, No Numbness in hands/feet, No New onset severe fatigue, No Nausea/vomiting, No Constipation and No Depressed mood Are there any side effects interfering with quality of life enough you would want to stop medication?: No What's improved for you since losing weight and making your lifestyle change?: More energy, happier Is there anything else we can help you with on your weight loss journey today?: Eze 05/11/25 0711 Date Danisha Kelly MD [facility] Signature: Date (if applicable) CC: Normal [facility] Basic Metabolic Profile (BMP )on 05-07-2025 BUN Normal 4-19 [facility] Comment on above: Result Comment: NOT NEEDED. NO SPECIMEN COLLECTED Performed By: #### L 500.2500 #### [facility] [address] [place], [address] BUN/CRE Normal 10-20 [facility] Comment on above: Result Comment: NOT NEEDED. NO SPECIMEN COLLECTED Performed By: #### L 500.2500 #### [facility] [address] [place], [address] Calcium Normal 7.6-11.0 [facility] Comment on above: Result Comment: NOT NEEDED. NO SPECIMEN COLLECTED Performed By: #### L 500.2500 #### [facility] [address] [place], [address] CL Normal 98-108 [facility] Comment on above: Result Comment: NOT NEEDED. NO SPECIMEN COLLECTED Performed By: #### L 500.2500 #### [facility] [address] [place], [address] CO2 Normal 21.0-32.0 [facility] Comment on above: Result Comment: NOT NEEDED. NO SPECIMEN COLLECTED Performed By: #### L 500.2500 #### [facility] [address] [place], [address] CREAT,SERUM Normal 0.70-1.20 [facility] Comment on above: Result Comment: NOT NEEDED. NO SPECIMEN COLLECTED Performed By: #### L 500.2500 #### [facility] [address] [place], [address] eGFR Normal >60 [facility] Comment on above: Result Comment: NOT NEEDED. NO SPECIMEN COLLECTED Performed By: #### L 500.2500 #### [facility] [address] [place], [address] GAP Normal 5-15 [facility] Comment on above: Result Comment: NOT NEEDED. NO SPECIMEN COLLECTED Performed By: #### L 500.2500 #### [facility] [address] [place], [address] GLU Normal 70-99 [facility] Comment on above: Result Comment: NOT NEEDED. NO SPECIMEN COLLECTED Performed By: #### L 500.2500 #### [facility] [address] [place], [address] Potassium Normal 3.3-5.1 [facility] Comment on above: Result Comment: NOT NEEDED. NO SPECIMEN COLLECTED Performed By: #### L 500.2500 #### [facility] [address] [place], [address] Basic Metabolic Profile (BMP) Normal 133-145 [facility] Comment on above: Result Comment: NOT NEEDED. NO SPECIMEN COLLECTED Performed By: #### L 500.2500 #### [facility] [address] [place], [address] Pelvic w/ Transvaginalon Pelvic w/ Transvaginal [facility] [address] [place] [address] Pelvic w/ Transvaginal MR#: [id number] Acct: [id number] Name: AISHA VALENTE Rep #: [id number] : 1990 F 34 From: Eddie Murphy MD PCP: Care Physician,No Primary Status: REG CLI Study: Pelvic w/ Transvaginal Date of Exam: 04/26/25 Exam# [id number] Ordering Dr: Danisha Kelly PROCEDURE: PELVIC W/ TRANSVAGINAL 04/26/2025 REASON FOR EXAM: AUB TECHNIQUE: Transabdominal and transvaginal pelvic ultrasound. Color and spectral doppler analysis of the ovaries. COMPARISON: Pelvic ultrasound on 12/31/2019. FINDINGS: Measurements: Uterus: 7.4 x 3.7 x 5.9 cm for volume of 83.7 mL Endometrial Thickness: 0.4 cm Right Ovary: 2.0 x 1.6 x 1.7 cm for volume of 2.9 mL Left Ovary: 2.7 x 1.8 x 2.1 cm for volume of 5.1 mL Uterus: Retroverted. Normal contour and myometrial echotexture. Nabothian cysts at the cervix. There is a punctate calcification near the cervix, of doubtful clinical significance. Endometrium: Normal echotexture. Right ovary: Normal size and echotexture. Left ovary: Normal size and echotexture. Other adnexal findings: None. Cul-de-sac: No free intraperitoneal fluid identified. DOPPLER: Color Doppler: Normal color flow doppler signal at both ovaries. Spectral Doppler: Normal arterial inflow and venous outflow signal at both ovaries. US/Pelvic w/ Transvaginal IMPRESSION: NORMAL TRANSABDOMINAL AND TRANSVAGINAL PELVIC ULTRASOUND WITH DOPPLER. Reading Location: [facility] CC: Dr. Danisha Kelly MD; No Primary Care Physician Stage Builder: Signed Normal [facility] Anion gap in Serum or Plasma Ordered By: Danisha Kelly on 02-04-2025 Anion gap [Moles/Vol] 12 mmol/L 04-08 [facility] BUN/creatinine ratioOrdered By: Danisha Kelly on 02-04-2025 Urea nitrogen/Creatinine [Mass ratio] 11.7 mg/mg 09-13 [facility] Basic Metabolic Profile (BMP )on 02-04-2025 BUN/CRE 11.7 RATIO Normal 09-13 [facility] Comment on above: Performed By: #### L 500.2500 #### [facility] [address] [place], [place], [id number] Calcium [Mass/Vol] 9.2 mg/dL Normal 7.6-11.0 [facility] Comment on above: Performed By: #### L 500.2500 #### [facility] [address] [place], [address] Chloride [Moles/Vol] 108 mmol/L Normal 98-108 [facility] Comment on above: Performed By: #### L 500.2500 #### [facility] [address] [place], [address] CO2 [Moles/Vol] 18.7 mmol/L Low 21.0-32.0 [facility] Comment on above: Performed By: #### L 500.2500 #### [facility] [address] [place], [address] Creatinine [Mass/Vol] 1.00 mg/dL Normal 0.70-1.20 [facility] Comment on above: Performed By: #### L 500.2500 #### [facility] [address] [place], [address] GAP 12 Normal 5-15 [facility] Comment on above: Performed By: #### L 500.2500 #### [facility] [address] [place], [address] GFR/1.73 sq M.predicted among non-blacks MDRD (S/P/Bld) [Vol rate/Area] 76 mL/min/{1.73_m2} Normal >60 [facility] Comment on above: Result Comment: mL/m in/1.73m2 CKD-EPI Creatinine Equation (2020) Performed By: #### L 500.2500 #### [facility] [address] [place], [address] Glucose [Mass/Vol] 94 mg/dL Normal 70-99 [facility] Comment on above: Performed By: #### L 500.2500 #### [facility] [address] [place], [address] Potassium [Moles/Vol] 4.2 mmol/L Normal 3.3-5.1 [facility] Comment on above: Performed By: #### L 500.2500 #### [facility] [address] [place], [place], [id number] Sodium [Moles/Vol] 138 mmol/L Normal 133-145 [facility] Comment on above: Performed By: #### L 500.2500 #### [facility] [address] [place], [place], [id number] Urea nitrogen [Mass/Vol] 12 mg/dL Normal 4-19 [facility] Comment on above: Performed By: #### L 500.2500 #### [facility] [address] [place], [place], [id number] Carbon dioxide, total [Moles /volume] in Central venous bloodOrdered By: Danisha Kelly on 02-04-2025 CO2 [Moles/Vol] 18.7 mmol/L Low 21.0-32.0 [facility] Chloride assayOrdered By: Enoc Kelly on 02-04-2025 Chloride [Moles/Vol] 108 mmol/L 98-108 [facility] GFR/1.73 sq M.predicted camila g non-blacks MDRD (S/P/Bld) [Vol rate/Area]Ordered By: Danisha Kelly on 02-04-2025 Estimated GFR (MDRD) Non-Af Amer 76 >60 [facility] Comment on above: mL/min/1.73m2 CKD-EP I Creatinine Equation (2020) Glomerular filtration rate ( GFR) estimation/1.73 sq m using serum, plasma, or whole bOrdered By: Danisha Kelly on 02-04-2025 GFR/1.73 sq M.predicted among non-blacks MDRD (S/P/Bld) [Vol rate/Area] 76 mL/min/{1.73_m2} >60 [facility] Comment on above: mL/min/1.73m2 CKD-EP I Creatinine Equation (2020) Potassium (Unsp spec) [Mass/ Vol]Ordered By: Danisha Kelly on 02-04-2025 Potassium [Moles/Vol] 4.2 mmol/L 3.3-5.1 [facility] Potassium measurement (mass/ volume)Ordered By: Danisha Kelly on 02-04-2025 Potassium (Unsp spec) [Mass/Vol] 4.2 mmol/L 3.3-5.1 [facility] Serum creatinine measurement (mass/volume)Ordered By: Danisha Kelly on 02-04-2025 Creatinine [Mass/Vol] 1.00 mg/dL 0.70-1.20 [facility] Serum glucose measurement (m ass/volume)Ordered By: Danisha Kelly on 02-04-2025 Glucose [Mass/Vol] 94 mg/dL 70-99 [facility] Serum or plasma calcium addis urement (mass/volume)Ordered By: Danisha Kelly on 02-04-2025 Calcium [Mass/Vol] 9.2 mg/dL 7.6-11.0 [facility] Serum or plasma urea nitroge n measurement (mass/volume)Ordered By: Danisha Kelly on 02-04-2025 Urea nitrogen [Mass/Vol] 12 mg/dL 4-19 [facility] Sodium levelOrdered By: Rick Kelly on 02-04-2025 Sodium [Moles/Vol] 138 mmol/L 133-145 [facility] 23-DS-Jukjpkv DOrdered By: Guillermo Kelly on 12-28-2024 Vitamin D 25-Hydroxy 20.4 ng/mL [facility] Comment on above: Vitamin D 25(OH) Sta tus Range Deficiency <20 ng/mL (50nmol/L) Insufficiency 20 - 30 ng/mL (50 - 75 nmol/L) Sufficiency 30 - 100 ng/mL (75 - 250 nmol/L) Toxicity >100 ng/mL (>250 nmol/L) Absolute neutrophil countOrd ered By: Danisha Kelly on 12-28-2024 Neutrophils (Bld) [#/Vol] 3.4 10*3/uL 2.0-7.7 [facility] Albumin to globulin ratioOrd ered By: Danisha Kelly on 12-28-2024 Albumin/Globulin [Mass ratio] 1.1 {ratio} 0.9-2.4 [facility] Basophil percentageOrdered B y: Danisha Kelly on 12-28-2024 Basophils/100 WBC (Bld) 1.0 % 0-1 [facility] Bilirubin, totalOrdered By: Danisha Kelly on 12-28-2024 Bilirubin [Mass/Vol] 0.70 mg/dL 0.20-1.00 [facility] Comment on above: For patients on eltr ombopag therapy, use of Dimension [place] TBIL is not recommended. Blood urea nitrogen (BUN)/cr eatinine ratioOrdered By: Danisha Kelly on 12-28-2024 Urea nitrogen/Creatinine [Mass ratio] 9.3 mg/mg Low 10-20 [facility] CBC W/Diff, Automatedon Absolute Lymph 1.81 X10 3/uL Normal 0.83-4.51 [facility] Comment on above: Performed By: #### L 506.1000, L501.9985, L500.4100, L500.4050, L100.0100 #### [facility] [address] [place], [address] Absolute Neut 3.4 X10 3/uL Normal 2.0-7.7 [facility] Comment on above: Performed By: #### L 506.1000, L501.9985, L500.4100, L500.4050, L100.0100 #### [facility] [address] [place], [address] Basophils/100 WBC (Bld) 1.0 % Normal 0-1 [facility] Comment on above: Performed By: #### L 506.1000, L501.9985, L500.4100, L500.4050, L100.0100 #### [facility] [address] [place], [address] Eosinophils/100 WBC (Bld) 1.7 % Normal 0-5 [facility] Comment on above: Performed By: #### L 506.1000, L501.9985, L500.4100, L500.4050, L100.0100 #### [facility] [address] [place], [address] Erythrocyte distribution width (RBC) [Ratio] 12.6 % Normal 11.6-14.6 [facility] Comment on above: Performed By: #### L 506.1000, L501.9985, L500.4100, L500.4050, L100.0100 #### [facility] [address] [place], [address] Hematocrit (Bld) [Volume fraction] 42.4 % Normal 37-47 [facility] Comment on above: Performed By: #### L 506.1000, L501.9985, L500.4100, L500.4050, L100.0100 #### [facility] [address] [place], [address] Hemoglobin (Bld) [Mass/Vol] 13.8 g/dL Normal 12.0-15.0 [facility] Comment on above: Performed By: #### L 506.1000, L501.9985, L500.4100, L500.4050, L100.0100 #### [facility] [address] [place], [address] IG% 0.300 Normal 0.0-0.9 [facility] Comment on above: Result Comment: IG% - Immature Granulocytes (promyelocytes, myelocytes and metamyelocytes) > 1% indicates that a LEFT SHIFT is Present. Performed By: #### L 506.1000, L501.9985, L500.4100, L500.4050, L100.0100 #### [facility] [address] [place], [address] Lymphocytes/100 WBC (Bld) 31.2 % Normal 19-41 [facility] Comment on above: Performed By: #### L 506.1000, L501.9985, L500.4100, L500.4050, L100.0100 #### [facility] [address] [place], [address] MCH (RBC) [Entitic mass] 28.3 pg Normal 27.0-32.0 [facility] Comment on above: Performed By: #### L 506.1000, L501.9985, L500.4100, L500.4050, L100.0100 #### [facility] [address] [place], [address] MCHC (RBC) [Mass/Vol] 32.5 g/dL Normal 32-36 [facility] Comment on above: Performed By: #### L 506.1000, L501.9985, L500.4100, L500.4050, L100.0100 #### [facility] [address] [place], [address] MCV (RBC) [Entitic vol] 87.1 fL Normal 81-99 [facility] Comment on above: Performed By: #### L 506.1000, L501.9985, L500.4100, L500.4050, L100.0100 #### [facility] [address] [place], [address] Monocytes/100 WBC (Bld) 7.1 % Normal 0-10 [facility] Comment on above: Performed By: #### L 506.1000, L501.9985, L500.4100, L500.4050, L100.0100 #### [facility] [address] [place], [address] Neutrophils/100 WBC (Bld) 58.7 % Normal 47-70 [facility] Comment on above: Performed By: #### L 506.1000, L501.9985, L500.4100, L500.4050, L100.0100 #### [facility] [address] [place], [address] Nucleated RBC (Bld) [#/Vol] 0 10*3/uL Normal 0-5 [facility] Comment on above: Performed By: #### L 506.1000, L501.9985, L500.4100, L500.4050, L100.0100 #### [facility] [address] [place], [address] Platelet mean volume (Bld) [Entitic vol] 10.3 fL Normal 6.2-12.0 [facility] Comment on above: Performed By: #### L 506.1000, L501.9985, L500.4100, L500.4050, L100.0100 #### [facility] [address] [place], [address] Platelets (Bld) [#/Vol] 265 10*3/uL Normal 150-450 [facility] Comment on above: Performed By: #### L 506.1000, L501.9985, L500.4100, L500.4050, L100.0100 #### [facility] [address] [place], [address] RBC (Bld) [#/Vol] 4.87 10*6/uL Normal 4.2-5.4 [facility] Comment on above: Performed By: #### L 506.1000, L501.9985, L500.4100, L500.4050, L100.0100 #### [facility] [address] [place], [address] RDW SD 40.1 fl Normal 35.1-43.9 [facility] Comment on above: Performed By: #### L 506.1000, L501.9985, L500.4100, L500.4050, L100.0100 #### [facility] [address] [place], [address] WBC (Bld) [#/Vol] 5.8 10*3/uL Normal 4.4-11.0 [facility] Comment on above: Performed By: #### L 506.1000, L501.9985, L500.4100, L500.4050, L100.0100 #### [facility] [address] [place], [address] Carbon dioxide measurementOr dered By: Danisha Kelly on 12-28-2024 CO2 [Moles/Vol] 21.0 mmol/L 21.0-32.0 [facility] Chloride measurementOrdered By: Danisha Kelly on 12-28-2024 Chloride [Moles/Vol] 109 mmol/L High 98-107 [facility] Comprehensive Metabolic Prof ilon 12-28-2024 Albumin [Mass/Vol] 3.9 g/dL Normal 3.2-5.0 [facility] Comment on above: Performed By: #### L 506.1000, L501.9985, L500.4100, L500.4050, L100.0100 #### [facility] [address] [place], [address] Albumin/Globulin [Mass ratio] 1.1 {ratio} Normal 0.9-2.4 [facility] Comment on above: Performed By: #### L 506.1000, L501.9985, L500.4100, L500.4050, L100.0100 #### [facility] [address] [place], [address] ALK P 52 U/L Normal 45-117 [facility] Comment on above: Performed By: #### L 506.1000, L501.9985, L500.4100, L500.4050, L100.0100 #### [facility] [address] [place], [address] ALT [Catalytic activity/Vol] 24 U/L Normal 13-56 [facility] Comment on above: Performed By: #### L 506.1000, L501.9985, L500.4100, L500.4050, L100.0100 #### [facility] [address] [place], [address] AST [Catalytic activity/Vol] 10 U/L Low 15-37 [facility] Comment on above: Performed By: #### L 506.1000, L501.9985, L500.4100, L500.4050, L100.0100 #### [facility] [address] [place], [address] Bilirubin [Mass/Vol] 0.70 mg/dL Normal 0.20-1.00 [facility] Comment on above: Result Comment: For patients on eltrombopag therapy, use of Dimension [place] TBIL is not recommended. Performed By: #### L 506.1000, L501.9985, L500.4100, L500.4050, L100.0100 #### [facility] [address] [place], [address] BUN/CRE 9.3 RATIO Low 10-20 [facility] Comment on above: Performed By: #### L 506.1000, L501.9985, L500.4100, L500.4050, L100.0100 #### [facility] [address] [place], [address] CA,Total 9.2 mg/dL Normal 8.5-10.1 [facility] Comment on above: Performed By: #### L 506.1000, L501.9985, L500.4100, L500.4050, L100.0100 #### [facility] [address] [place], [address] Chloride [Moles/Vol] 109 mmol/L High 98-107 [facility] Comment on above: Performed By: #### L 506.1000, L501.9985, L500.4100, L500.4050, L100.0100 #### [facility] [address] [place], [address] CO2 [Moles/Vol] 21.0 mmol/L Normal 21.0-32.0 [facility] Comment on above: Performed By: #### L 506.1000, L501.9985, L500.4100, L500.4050, L100.0100 #### [facility] [address] [place], [address] Creatinine [Mass/Vol] 1.07 mg/dL High 0.55-1.02 [facility] Comment on above: Result Comment: The validity of the calculated GFR GFRAA in patients over 70 years has not been determined. Clinical correlation is essential. Performed By: #### L 506.1000, L501.9985, L500.4100, L500.4050, L100.0100 #### [facility] [address] [place], [address] EST GFR - AA 76 mL/min Normal >60 [facility] Comment on above: Result Comment: Afri can [place] GFR Calc Performed By: #### L 506.1000, L501.9985, L500.4100, L500.4050, L100.0100 #### [facility] [address] [place], [address] GAP 8 Normal 5-15 [facility] Comment on above: Performed By: #### L 506.1000, L501.9985, L500.4100, L500.4050, L100.0100 #### [facility] [address] [place], [address] GFR/1.73 sq M.predicted among non-blacks MDRD (S/P/Bld) [Vol rate/Area] 62 mL/min/{1.73_m2} Normal >60 [facility] Comment on above: Result Comment: Non- GFR Calc Performed By: #### L 506.1000, L501.9985, L500.4100, L500.4050, L100.0100 #### [facility] [address] [place], [address] Globulin (S) [Mass/Vol] 3.7 g/dL Normal 2.2-4.2 [facility] Comment on above: Performed By: #### L 506.1000, L501.9985, L500.4100, L500.4050, L100.0100 #### [facility] [address] [place], [address] Glucose [Mass/Vol] 91 mg/dL Normal 74-106 [facility] Comment on above: Performed By: #### L 506.1000, L501.9985, L500.4100, L500.4050, L100.0100 #### [facility] [address] [place], [address] Potassium [Moles/Vol] 3.6 mmol/L Normal 3.5-5.1 [facility] Comment on above: Performed By: #### L 506.1000, L501.9985, L500.4100, L500.4050, L100.0100 #### [facility] [address] [place], [address] Sodium [Moles/Vol] 138 mmol/L Normal 136-145 [facility] Comment on above: Performed By: #### L 506.1000, L501.9985, L500.4100, L500.4050, L100.0100 #### [facility] [address] [place], [address] T PROT 7.6 g/dL Normal 6.4-8.2 [facility] Comment on above: Performed By: #### L 506.1000, L501.9985, L500.4100, L500.4050, L100.0100 #### [facility] [address] [place], [address] Urea nitrogen [Mass/Vol] 10 mg/dL Normal 7-18 [facility] Comment on above: Performed By: #### L 506.1000, L501.9985, L500.4100, L500.4050, L100.0100 #### [facility] [address] [place], [place], [id number] Eosinophil percentageOrdered By: Danisha Kelly on 12-28-2024 Eosinophils/100 WBC (Bld) 1.7 % 0-5 [facility] Erythrocyte distribution wid th ratioOrdered By: Danisha Kelly on 12-28-2024 Erythrocyte distribution width (RBC) [Ratio] 12.6 % 11.6-14.6 [facility] Erythrocyte distribution wid th standard deviationOrdered By: Danisha Kelly on 12-28-2024 Erythrocyte distribution width (RBC) [Entitic vol] 40.1 fL 35.1-43.9 [facility] Estimated glomerular filtrat ion rate (GFR) AmericanOrdered By: Danisha Kelly on 12-28-2024 Estimated GFR (MDRD) Amer 76 mL/min >60 [facility] Comment on above: GFR Calc Glomerular filtration rate ( GFR) estimationOrdered By: Danisha Kelly on 12-28-2024 Estimated GFR (MDRD) Non-Af Amer 62 mL/min >60 [facility] Comment on above: Non- GFR Calc Glucose measurementOrdered B y: Danisha Kelly on 12-28-2024 Glucose [Mass/Vol] 91 mg/dL 74-106 [facility] Hematocrit Auto (Bld) [Volum e fraction]Ordered By: Danisha Kelly on 12-28-2024 Hematocrit (Bld) [Volume fraction] 42.4 % 37-47 [facility] Hemoglobin A1con 12-28-2024 HbA1c (Bld) [Mass fraction] 5.0 % Normal 3.8-5.6 [facility] Comment on above: Result Comment: Norm al < 5.7 % Prediabetic 5.7 - 6.4 % Diabetic >or= 6.5 % Please note range changes. Performed By: #### L 506.1000, L501.9985, L500.4100, L500.4050, L100.0100 #### [facility] [address] [place], [address] Hemoglobin A1c percentageOrd ered By: Danisha Kelly on 12-28-2024 HbA1c (Bld) [Mass fraction] 5.0 % 3.8-5.6 [facility] Comment on above: Normal < 5.7 % Predi abetic 5.7 - 6.4 % Diabetic >or= 6.5 % Please note range changes. Hemoglobin measurementOrdere d By: Danisha Kelly on 12-28-2024 Hemoglobin (Bld) [Mass/Vol] 13.8 g/dL 12.0-15.0 [facility] High density lipoprotein (HD L) measurementOrdered By: Danisha Kelly on 12-28-2024 Cholesterol in HDL [Mass/Vol] 50 mg/dL >40 [facility] Comment on above: The drugs N-Acetylcy steine and Metamizole may falsely depress this assay. Reference Range HDL <40 mg/dL Low HDL Cholesterol HDL >or= 60 mg/dL High HDL Cholesterol Immature granulocytes/100 WB C Auto (Bld)Ordered By: Danisha Kelly on 12-28-2024 Immature granulocytes/100 WBC (Bld) 0.300 % 0.0-0.9 [facility] Comment on above: IG% - Immature Granu locytes (promyelocytes, myelocytes and metamyelocytes) > 1% indicates that a LEFT SHIFT is Present. Laboratory - Chemistry and C hemistry - challengeOrdered By: Danisha Kelly on 12-28-2024 AST [Catalytic activity/Vol] 10 U/L Low 15-37 [facility] Lipid Profileon 12-28-2024 Cholesterol [Mass/Vol] 159 mg/dL Normal [address] [facility] Comment on above: Result Comment: <200 mg/dL Desirable 200-240 mg/dL Borderline >240 mg/dL High Risk Performed By: #### L 506.1000, L501.9985, L500.4100, L500.4050, L100.0100 #### [facility] [address] [place], [place], [id number] Cholesterol in HDL [Mass/Vol] 50 mg/dL Normal [facility] Comment on above: Result Comment: The drugs N-Acetylcysteine and Metamizole may falsely depress this assay. Reference Range HDL <40 mg/dL Low HDL Cholesterol HDL >or= 60 mg/dL High HDL Cholesterol Performed By: #### L 506.1000, L501.9985, L500.4100, L500.4050, L100.0100 #### [facility] [address] [place], [address] Cholesterol in LDL [Mass/Vol] 97 mg/dL Normal 0-130 [facility] Comment on above: Performed By: #### L 506.1000, L501.9985, L500.4100, L500.4050, L100.0100 #### [facility] [address] [place], [address] Cholesterol in VLDL [Mass/Vol] 12 mg/dL Normal 5-40 [facility] Comment on above: Performed By: #### L 506.1000, L501.9985, L500.4100, L500.4050, L100.0100 #### [facility] [address] [place], [address] Triglyceride [Mass/Vol] 60 mg/dL Normal [facility] Comment on above: Result Comment: The drugs N-Acetylcysteine and Metamizole may falsely depress this assay. Serum Triglycerides Reference Interval Normal <150 mg/dL Borderline high 150 - 199 mg/dL High 200 - 499 mg/dL Very High > or = 500 mg/dL Performed By: #### L 506.1000, L501.9985, L500.4100, L500.4050, L100.0100 #### [facility] [address] [place], [address] Low density lipoprotein (LDL ) cholesterol measurementOrdered By: Danisha Kelly on 12-28-2024 Cholesterol in LDL [Mass/Vol] 97 mg/dL 0-130 [facility] Lymphocytes Auto (Unsp spec) [#/Vol]Ordered By: Danisha Kelly on 12-28-2024 Lymphocytes (Bld) [#/Vol] 1.81 10*3/uL 0.83-4.51 [facility] Lymphocytes/100 WBC Auto (Un sp spec)Ordered By: Danisha Kelly on 12-28-2024 Lymphocytes/100 WBC (Bld) 31.2 % 19-41 [facility] MCV (mean corpuscular volume ) determinationOrdered By: Danisha Kelly on 12-28-2024 MCV (RBC) [Entitic vol] 87.1 fL 81-99 [facility] Mean corpuscular hemoglobin (MCH) determinationOrdered By: Danisha Kelly on 12-28-2024 MCH (RBC) [Entitic mass] 28.3 pg 27.0-32.0 [facility] Mean corpuscular hemoglobin concentration (MCHC) determinationOrdered By: Danisha Kelly on 12-28-2024 MCHC (RBC) [Mass/Vol] 32.5 g/dL 32-36 [facility] Mean platelet volume determi nationOrdered By: Danisha Kelly on 12-28-2024 Platelet mean volume (Bld) [Entitic vol] 10.3 fL 6.2-12.0 [facility] Monocyte percentageOrdered B y: Danisha Kelly on 12-28-2024 Monocytes/100 WBC (Bld) 7.1 % 0-10 [facility] Neutrophil percentageOrdered By: Danisha Kelly on 12-28-2024 Neutrophils/100 WBC (Bld) 58.7 % 47-70 [facility] Nucleated red blood cell per centageOrdered By: Danisha Kelly on 12-28-2024 Nucleated RBC/100 WBC (Bld) [Ratio] 0 % 0-5 [facility] Platelet countOrdered By: Enoc Kelly on 12-28-2024 Platelets (Bld) [#/Vol] 265 10*3/uL 150-450 [facility] Potassium measurementOrdered By: Danisha Kelly on 12-28-2024 Potassium [Moles/Vol] 3.6 mmol/L 3.5-5.1 [facility] RBC Auto (Bld) [#/Vol]Ordere d By: Danisha Kelly on 12-28-2024 RBC (Bld) [#/Vol] 4.87 10*6/uL 4.2-5.4 [facility] Serum anion gap measurementO rdered By: Danisha Kelly on 12-28-2024 Anion gap [Moles/Vol] 8 mmol/L 5-15 [facility] Serum globulin measurementOr dered By: Danisha Kelly on 12-28-2024 Globulin (S) [Mass/Vol] 3.7 g/dL 2.2-4.2 [facility] Serum or plasma alanine larkin otransferase (ALT) measurementOrdered By: Danisha Kelly on 12-28-2024 ALT [Catalytic activity/Vol] 24 U/L 13-56 [facility] Serum or plasma albumin addis urement (mass/volume)Ordered By: Danisha Kelly on 12-28-2024 Albumin [Mass/Vol] 3.9 g/dL 3.2-5.0 [facility] Serum or plasma alkaline nany sphatase measurementOrdered By: Danisha Kelly on 12-28-2024 ALP [Catalytic activity/Vol] 52 U/L 45-117 [facility] Serum or plasma calcium addis urement (mass/volume)Ordered By: Danisha Kelly on 12-28-2024 Calcium [Mass/Vol] 9.2 mg/dL 8.5-10.1 [facility] Serum or plasma cholesterol measurement (mass/volume)Ordered By: Danisha Kelly on 12-28-2024 Cholesterol [Mass/Vol] 159 mg/dL <[address] [facility] Comment on above: <200 mg/dL Desirable 200-240 mg/dL Borderline >240 mg/dL High Risk Serum or plasma creatinine m easurement (mass/volume)Ordered By: Danisha Kelly on 12-28-2024 Creatinine [Mass/Vol] 1.07 mg/dL High 0.55-1.02 [facility] Comment on above: The validity of the calculated GFR & GFRAA in patients over 70 years has not been determined. Clinical correlation is essential. Serum or plasma urea nitroge n measurement (mass/volume)Ordered By: Danisha Kelly on 12-28-2024 Urea nitrogen [Mass/Vol] 10 mg/dL 7-18 [facility] Sodium levelOrdered By: Rick Kelly on 12-28-2024 Sodium [Moles/Vol] 138 mmol/L 136-145 [facility] Total proteinOrdered By: Max Kelly on 12-28-2024 Protein [Mass/Vol] 7.6 g/dL 6.4-8.2 [facility] Triglycerides measurementOrd ered By: Danisha Kelly on 12-28-2024 Triglyceride [Mass/Vol] 60 mg/dL <199 [facility] Comment on above: The drugs N-Acetylcy steine and Metamizole may falsely depress this assay.Serum Triglycerides Reference Interval Normal <150 mg/dL Borderline high 150 - 199 mg/dL High 200 - 499 mg/dL Very High > or = 500 mg/dL Very low density lipoprotein (VLDL) cholesterol measurementOrdered By: Danisha Kelly on 12-28-2024 VLDL Cholesterol 12 mg/dL 5-40 [facility] Vitamin D,25 Hydroxyon 12-28 Vitamin D 25-OH 20.4 ng/mL Normal [facility] Comment on above: Result Comment: Ashly min D 25(OH) Status Range Deficiency <20 ng/mL (50nmol/L) Insufficiency 20 - 30 ng/mL (50 - 75 nmol/L) Sufficiency 30 - 100 ng/mL (75 - 250 nmol/L) Toxicity >100 ng/mL (>250 nmol/L) Performed By: #### L 506.1000, L501.9985, L500.4100, L500.4050, L100.0100 #### [facility] [address] [place], [place], [id number] White blood cell (WBC) count Ordered By: Danisha Kelly on 12-28-2024 WBC (Bld) [#/Vol] 5.8 10*3/uL 4.4-11.0 [facility] Senior Portfolio Analyst Office Visit Reporton 12-25-2024 Senior Portfolio Analyst Office Visit Report [facility] [address], [address] [place] [address] OFFICE VISIT Date of Service: 12/25/24 MR#: [id number] Acct: [id number] Name: AISHA VALENTE Rep #: [id number] : 1990 Provider: Dr. 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 Emergency Medical Technician/Driver Required: No Is patient in pain?: No Allergies latex Allergy (Verified 12/25/24 08:03) Swelling Penicillins Allergy (Verified 12/25/24 08:03) Rash Medications ???Medication ???Instructions ???Recorded ???Confirmed ???Type Ashlyna 0.15 mg-30 mcg (84)/10 1 tab PO DAILY 84 days #91 tabs 12/25/24 Rx mcg(7) tablets,3 month dose pack (L norgest/e.estradiol- e.estrad) phentermine 37.5 mg tablet 37.5 mg PO QDAY #30 tabs 12/25/24 12/25/24 Rx (Adipex-P) topiramate 25 mg tablet 50 mg (2 x 25 mg) PO BID #120 tabs 12/28/24 12/28/24 Rx Post menopausal: No Patient : No : No PFSH Medical History Kidney stone complicating Surgical History Status post bilateral salpingectomy Previous section Social History Smoking Status: Former smoker alcohol intake: current substance use type: does not use caffeine: Yes what type of physical activity do you participate in: walking, aerobics and weight training frequency: 5-6 times per week seatbelt use: always do you feel safe at home: Yes additional social history: Kenneth- Patient works at [employer] History 3 Elective abortions Hx Para 3 Spontaneous abortions Hx # Term Pregnancies Ectopic pregnancies Hx # Pregnancies Multiple births # of living children 3 Past Pregnancies Del. Date Name GA/Weeks Outcome Route Bth Weight Gen Labor Lgth Anesthesia Del Locatn Provider FOB Unknown [place] 2012 live - full term Unknown 2018 Prashant Unknown 2020 Fan live - full term HPI Encounter for routine gynecological examination Details: AISHA VALENTE is a 34 year old who presents for annual exam.weight management follow up also. has had 5 lb weight gain but has changed strength training, is eating the same way but isn't tracking as closely perhaps. Last PAP: 12/14/2022 History of abnormal PAP: no severe Last mammogram: 09/30/2024 History of abnormal mammogram: no Colon cancer screenin Other preventative health care screenings: ordered Female Reproductive History Questions: metorrhagia: No, sexually active: Yes, dyspareunia: Yes and PCB: Yes Menopausal Symptoms: No hot flashes, No night sweats, No weight change, No mood changes, No difficulty concentrating, No sleep problems and Yes change in libido ROS Const Constitutional: Reports as per HPI; Denies fatigue, increased appetite, poor appetite, night sweats, weight gain or weight loss Cardio Card: Denies chest pain Resp Resp: Denies cough or dyspnea GI GI: Reports as per HPI; Denies abdominal pain, bloating, constipation, nausea or vomiting : Reports as per HPI and other; Denies difficulty voiding, dysuria, hematuria, hot flashes, nipple discharge, pelvic pain, prolapse symptoms, urinary frequency, urinary incontinence, urinary urgency, vaginal discharge, vaginal dryness, vaginal odor or vaginal pruritus Skin Skin/Breast: Denies changing lesions, breast mass, breast pain, breast skin changes or nipple discharge Psych Psych: Reports anxiety and change in libido; Denies depression or difficulty concentrating Exam Const General: cooperative, healthy appearing, comfortable, no acute distress, well developed and well groomed Orientation: alert HENMT Head: normal to inspection and normocephalic Ears: hearing grossly normal bilaterally and external ears normal Nose: external nose normal Face and sinus: normal facial exam Neck Neck: normal visual inspection, full ROM and no lymphadenopathy Thyroid: thyroid normal Chest Chest palpation inspection: normal inspection of the chest Breast inspection: normal inspection of the breasts and normal inspection of the axillae Breast palpation: normal palpation of the breasts, normal palpation of the axillae and no axillary lymphadenopathy Resp Effort Inspection: normal respiratory effort Auscultation: clear to auscu (more content not included)... Normal [facility] Breast Limited Unilateralon 09-30-2024 Breast Limited Unilateral [facility] [address] [place] [address] Breast Limited Unilateral MR#: [id number] Acct: [id number] Name: AISHA VALENTE Rep #: [id number] : 1990 F 33 From: Bryce kamara MD PCP: Care Physician,No Primary Status: REG CLI Study: Breast Limited Unilateral Date of Exam: Exam# [id number] Ordering Dr: Yokasta Mohr NP POWER PLANT INSPECTOR -C [id number] STUDY: ULTRASOUND BREAST - LEFT REASON FOR EXAM: Female, 33 years old. Palpable left breast mass. TECHNIQUE: Axial and longitudinal images of the LEFT breast were performed with a high resolution ultrasound transducer. # OF IMAGES: 63 COMPARISON: Comparison is made with prior mammogram done earlier today. FINDINGS: LEFT Breast: The lateral aspect of the left breast was examined with ultrasound. No focal masses seen. Incidental note is made of dilated retroareolar ducts. US/Breast Limited Unilateral IMPRESSION: Dilated retroareolar ducts. No mass lesion is seen. ASSESSMENT CATEGORY: BIRADS Category 2: Benign. A letter regarding these results will be sent to the patient by the facility within 30 days. Electronically Signed: Bryce Almanzar MD at 14:27 EST , CC: POWER PLANT INSPECTOR-Suzanne Mohr; No Primary Care Physician Stage Builder: Signed Normal [facility] DIAG MAMM W/CAD, BILATon DIAG MAMM W/CAD, BILAT [facility] [address] [place] [address] DIAG MAMM W/CAD, BILAT MR#: [id number] Acct: [id number] Name: AISHA VALENTE Rep #: [id number] : 1990 F 33 From: Bryce kamara MD PCP: Care Physician,No Primary Status: REG CLI Study: DIAG MAMM W/CAD, BILAT Date of Exam: 09/30/24 Exam# [id number] Ordering Dr: Yokasta Mohr NP POWER PLANT INSPECTOR -C [id number] MAMMOGRAPHY - BILATERAL DIAGNOSTIC REASON FOR EXAM: Female, 33 years old. Left breast lump. PERTINENT HISTORY: Non-contributory. TECHNIQUE: Digital bilateral breast kesha (3D mammographic acquisition) in the CC and MLO projections. 2-D mediolateral oblique (MLO) and craniocaudad (CC) views of both breasts were obtained. CAD: Full Field Digital Mammography with Computer Added Detection was performed. COMPARISON: None. Baseline examination. FINDINGS: Breast Composition: The breasts are extremely dense, which lowers the sensitivity of mammography. There are 3 adjacent well-defined nodules in the retroareolar region of the left breast. Correlation with ultrasound is recommended. No other significant abnormalities are identified. BI/DIAG MAMM W/CAD, BILAT IMPRESSION: 3 well-defined adjacent nodules in the retroareolar region of the left breast as described. Correlation with ultrasound is recommended. ASSESSMENT CATEGORY: BIRADS Category 0: Incomplete. Need additional imaging evaluation. A letter regarding these results will be sent to the patient by the facility within 30 days. Approximately 10% of breast cancers are not detected by mammography. A normal mammogram should not delay biopsy of a clinically suspicious abnormality. Electronically Signed: Bryce Almanzar MD at 15:16 EST , CC: LARISSA Mohr; No Primary Care Physician Stage Builder: Signed Normal [facility] Office Visit Reporton 2023 Office Visit Report [facility] [address] [place] [address] OFFICE VISIT Date of Service: 06/26/24 MR#: [id number] Acct: [id number] Patient: AISHA VALENTE Rep #: [id number] : 1990 Provider: Dr. Danisha hughes MD Age/Sex: 33/F Location: [facility] Status: Signed Intake Vital Signs 01/16/24 13:10 06/23/24 08:39 06/26/24 08:22 Height 5 ft 8 in 5 ft 8 in 5 ft 8 in Weight: 181 lb 7 oz 179 lb 7 oz BMI 27.6 27.3 BP 136/83 H 127/77 H Blood Pressure Location Rt brachial Lt brachial Position Standing Sitting Respiration 16 16 Pulse 84 81 Pulse Source Monitor Monitor Intake Visit Reasons: Weight/BP/HR check Chief Complaint: weight check Emergency Medical Technician/Driver Required: No Is patient in pain?: No Allergies latex Allergy (Verified 06/26/24 08:24) Swelling Penicillins Allergy (Verified 06/26/24 08:24) Rash Medications ???Medication ???Instructions ???Recorded ???Confirmed ???Type azelastine 137 mcg-fluticasone 50 1 spray intranasal BID #23 grams 07/03/23 01/16/24 Rx mcg/spray nasal spray (Dymista) topiramate 25 mg tablet 50 mg (2 x 25 mg) PO BID #120 tabs 01/17/24 Rx Ashlyna 0.15 mg-30 mcg (84)/10 1 tab PO DAILY 84 days #91 tabs 05/21/24 Rx mcg(7) tablets,3 month dose pack (L norgest/e.estradiol- e.estrad) phentermine 37.5 mg tablet 37.5 mg PO QDAY #30 tabs 06/29/24 06/29/24 Rx (Adipex-P) Is last menstrual period known: Yes Post menopausal: No Patient : No Have you fallen in the past year?: No Do you think of yourself as: straight/heterosexua l Current gender identity: female Supplemental Info patient seen for obesity related comorbidities/weight management medication follow up. WM questionnaire answers reviewed with patient, and any questions answered. support given to patient consistent with treatment plan. vitals taken and script renewed by provider if appropriate. all relevant findings reviewed with the provider, script renewed if appropriate, and any changes to current treatment as well as the follow up plan reviewed with patient. 07/01/24 1802 Date Danisha Kelly MD Cosignamira Signature: Date (if applicable) CC: Normal [facility] Gram stain for investigation of transfusion reactionOrdered By: Danisha Kelly on 12-19-2023 Microscopic observation Gram stain Nom (Unsp spec) [facility] No Panel InformationOrdered By: Danisha Kelly on 12-19-2023 Genital Culture Neisseria or beta-hemolytic Streptococcus isolated. [facility] Basophil percentageOrdered B y: Danisha Kelly on 09-17-2023 WBC (Bld) [#/Vol] 8.3 10*3/uL 4.4-11.0 [facility] Blood erythrocytes count (nu mber/volume)Ordered By: Danisha Kelly on 09-17-2023 RBC (Bld) [#/Vol] 4.69 10*6/uL 4.2-5.4 [facility] Blood hemoglobin measurement (mass/volume)Ordered By: Danisha Kelly on 09-17-2023 Hemoglobin (Bld) [Mass/Vol] 12.9 g/dL 12.0-15.0 [facility] Blood platelet mean volumeOr dered By: Danisha Kelly on 09-17-2023 Platelet mean volume (Bld) [Entitic vol] 10.7 fL 6.2-12.0 [facility] Determination of erythrocyte mean corpuscular volume (MCV)Ordered By: Danisha Kelly on 09-17-2023 MCV (RBC) [Entitic vol] 84.6 fL 81-99 [facility] Hematocrit Auto (Bld) [Volum e fraction]Ordered By: Danisha Kelly on 09-17-2023 Hematocrit (Bld) [Volume fraction] 39.7 % 37-47 [facility] - Hematology and Cell countsOrdered By: Danisha Kelly on 09-17-2023 Erythrocyte distribution width (RBC) [Entitic vol] 42.5 fL 35.1-43.9 [facility] Erythrocyte distribution width (RBC) [Ratio] 13.8 % 11.6-14.6 [facility] MCH (RBC) [Entitic mass] 27.5 pg 27.0-32.0 [facility] MCHC Auto (RBC) [Mass/Vol]Or dered By: Danisha Kelly on 09-17-2023 MCHC (RBC) [Mass/Vol] 32.5 g/dL 32-36 [facility] No Panel InformationOrdered By: Yokasta Mohr on 09-17-2023 Thyroid Stimulating Hormone (TSH) 1.06 uIU/mL 0.358-3.74 [facility] Platelets bldOrdered By: Max Kelly on 09-17-2023 Platelets (Bld) [#/Vol] 326 10*3/uL 150-450 [facility] Absolute lymphocyte countOrd ered By: Dr. Kelly on 12-21-2022 Lymphocytes Auto (Unsp spec) [#/Vol] 2.24 10*3/uL 0.83-4.51 [facility] Basophil percentageOrdered B y: Dr. Kelly on 12-21-2022 Basophils/100 WBC (Bld) 0.7 % 0-1 [facility] Bilirubin [Mass/Vol] 0.40 mg/dL 0.20-1.00 [facility] Comment on above: For patients on eltr ombopag therapy, use of Dimension [place] TBIL is not recommended. Chloride [Moles/Vol] 111 mmol/L 98-107 [facility] Eosinophils/100 WBC (Bld) 6.1 % 0-5 [facility] Glucose [Mass/Vol] 98 mg/dL 74-106 [facility] Neutrophils (Bld) [#/Vol] 4.6 10*3/uL 2.0-7.7 [facility] Neutrophils/100 WBC (Bld) 57.3 % 47-70 [facility] Potassium [Moles/Vol] 4.1 mmol/L 3.5-5.1 [facility] Protein [Mass/Vol] 7.3 g/dL 6.4-8.2 [facility] Sodium [Moles/Vol] 143 mmol/L 136-145 [facility] WBC (Bld) [#/Vol] 8.1 10*3/uL 4.4-11.0 [facility] Blood erythrocytes count (nu mber/volume)Ordered By: Dr. Kelly on 12-21-2022 RBC (Bld) [#/Vol] 4.69 10*6/uL 4.2-5.4 [facility] Blood hemoglobin measurement (mass/volume)Ordered By: Dr. Kelly on 12-21-2022 Hemoglobin (Bld) [Mass/Vol] 12.2 g/dL 12.0-15.0 [facility] Blood lymphocytes/100 leukoc ytesOrdered By: Dr. Kelly on 12-21-2022 Lymphocytes/100 WBC (Bld) 27.8 % 19-41 [facility] Blood monocytes/100 leukocyt esOrdered By: Dr. Kelly on 12-21-2022 Monocytes/100 WBC (Bld) 7.6 % 0-10 [facility] Blood platelet mean volumeOr dered By: Dr. Kelly on 12-21-2022 Platelet mean volume (Bld) [Entitic vol] 10.5 fL 6.2-12.0 [facility] Determination of erythrocyte mean corpuscular volume (MCV)Ordered By: Dr. Kelly on 12-21-2022 MCV (RBC) [Entitic vol] 82.5 fL 81-99 [facility] Hematocrit Auto (Bld) [Volum e fraction]Ordered By: Dr. Kelly on 12-21-2022 Hematocrit (Bld) [Volume fraction] 38.7 % 37-47 [facility] - Chemistry and C hemistry - challengeOrdered By: Dr. Kelly on 12-21-2022 ALP [Catalytic activity/Vol] 63 U/L 45-117 [facility] ALT [Catalytic activity/Vol] 19 U/L 13-56 [facility] CO2 [Moles/Vol] 24.0 mmol/L 21.0-32.0 [facility] Globulin (S) [Mass/Vol] 3.5 g/dL 2.2-4.2 [facility] Urea nitrogen/Creatinine [Mass ratio] 12.9 mg/mg 10-20 [facility] - Hematology and Cell countsOrdered By: Dr. Kelly on 12-21-2022 Erythrocyte distribution width (RBC) [Entitic vol] 42.5 fL 35.1-43.9 [facility] Erythrocyte distribution width (RBC) [Ratio] 14.4 % 11.6-14.6 [facility] Immature granulocytes/100 WBC (Bld) 0.500 % 0.0-0.9 [facility] Comment on above: IG% - Immature Granu locytes (promyelocytes, myelocytes and metamyelocytes) > 1% indicates that a LEFT SHIFT is Present. MCH (RBC) [Entitic mass] 26.0 pg 27.0-32.0 [facility] Nucleated RBC/100 WBC (Bld) [Ratio] 0 % 0-5 [facility] MCHC Auto (RBC) [Mass/Vol]Or dered By: Dr. Kelly on 12-21-2022 MCHC (RBC) [Mass/Vol] 31.5 g/dL 32-36 [facility] No Panel InformationOrdered By: Dr. Kelly on 12-21-2022 Estimated GFR (MDRD) Amer 99 mL/min >60 [facility] Comment on above: GFR Calc Estimated GFR (MDRD) Non-Af Amer 82 mL/min >60 [facility] Comment on above: Non- GFR Calc Platelets bldOrdered By: Dr. Kelly on 12-21-2022 Platelets (Bld) [#/Vol] 284 10*3/uL 150-450 [facility] Serum or plasma albumin addis urement (mass/volume)Ordered By: Dr. Kelly on 12-21-2022 Albumin [Mass/Vol] 3.8 g/dL 3.2-5.0 [facility] Serum or plasma albumin/glob ulin mass ratioOrdered By: Dr. Kelly on 12-21-2022 Albumin/Globulin [Mass ratio] 1.1 {ratio} 0.9-2.4 [facility] Serum or plasma calcium addis urement (mass/volume)Ordered By: Dr. Kelly on 12-21-2022 Calcium [Mass/Vol] 8.9 mg/dL 8.5-10.1 [facility] Serum or plasma creatinine m easurement (mass/volume)Ordered By: Dr. Kelly on 12-21-2022 Creatinine [Mass/Vol] 0.85 mg/dL 0.55-1.02 [facility] Comment on above: The validity of the calculated GFR & GFRAA in patients over 70 years has not been determined. Clinical correlation is essential. Serum or plasma urea nitroge n measurement (mass/volume)Ordered By: Dr. Kelly on 12-21-2022 Urea nitrogen [Mass/Vol] 11 mg/dL 7-18 [facility] Thin prep Papanicolaou smear with manual screeningOrdered By: Dr. Kelly on 12-21-2022 Thin prep Papanicolaou smear with manual screening 10 U/L 15-37 [facility] Thin prep Papanicolaou smear with manual screening 8 5-15 [facility] Cervical or vagninal specime n microscopic examination by cytology stain (reported asOrdered By: Dr. Kelly on 12-14-2022 Cytology report Cyto stain Doc (Cvx/Vag) Comment . [facility] Comment on above: The Pap smear is a s creening test designed to aid in thedetection of premalignant and malignant conditions of theuterine cervix. It is not a diagnostic procedure andshould not be used as the sole means of detecting cervicalcancer. Both false-positive and false-negative reports dooccur. Detection in cervical specim en of any of human papilloma virus (HPV) 16, 18, 31, 33,Ordered By: Dr. Kelly on 12-14-2022 HPV 16+18+31+33+35+39+45+51+ 52+56+58+59+66+68 DNA Probe+sig amp Ql (Cvx) Negative Negative [facility] Comment on above: This nucleic acid am plification test detects fourteen high-risk HPV types (16,18,31,33,35,39,45,51,52,56,58,59,66,68)without differentiation. Laboratory - CytologyOrdered By: Dr. Kelly on 12-14-2022 Rrt Cyto stain Nom (Cvx/Vag) [ID] Comment . [facility] Comment on above: Amarjit Wilson totechnologist Laboratory - Miscellaneous t estsOrdered By: Dr. Kelly on 12-14-2022 Service comment (Unsp spec) [Interp] Comment . [facility] Comment on above: This liquid based Th inPrep(R) pap test was screened withthe use of an image guided system. Service comment (Unsp spec) [Interp] . . [facility] Liquid-based cerv Pap + CT/G C by ZULMA w reflex to high-risk HPV for ASCUSOrdered By: Dr. Kelly on 12-14-2022 Cytology report Cyto stain.thin prep Doc (Cvx/Vag) Comment . [facility] Comment on above: Criteria not met, HP V Genotype not performed.Performed at: - [address] [id number] Director: Tressa Hughes MD, Phone: [phone] at: =[facility] [id number] Director: Tressa Hughes MD, Phone: [phone] No Panel InformationOrdered By: Dr. Kelly on 12-14-2022 Pathology report final diagnosis Narrative Comment . [facility] Comment on above: NEGATIVE FOR INTRAEP ITHELIAL LESION OR MALIGNANCY. Vital Signs Date Time Vital Sign Value Performing Clinician Sravanthi juan 05-10-2025 08:02-0400 Body height 172.72 cm No Primary Care Physician [facility] 05-10-2025 08:02-0400 Body mass index (BMI) [Ratio] 28.3 kg/m2 No Primary Care Physician [facility] 05-10-2025 08:02-0400 Body weight 84.45 kg No Primary Care Physician [facility] 05-10-2025 08:02-0400 Diastolic blood pressure 81 mm[Hg] No Primary Care Physician [facility] 05-10-2025 08:02-0400 Heart rate 84 /min No Primary Care Physician [facility] 05-10-2025 08:02-0400 Systolic blood pressure 119 mm[Hg] No Primary Care Physician [facility] 12-25-2024 08:06-0500 Body height 172.72 cm No Primary Care Physician [facility] 12-25-2024 08:05-0500 Body mass index (BMI) [Ratio] 28.1 kg/m2 No Primary Care Physician [facility] 12-25-2024 08:05-0500 Body weight 83.97 kg No Primary Care Physician [facility] 12-25-2024 08:05-0500 Diastolic blood pressure 81 mm[Hg] No Primary Care Physician [facility] 12-25-2024 08:05-0500 Systolic blood pressure 122 mm[Hg] No Primary Care Physician [facility] 12-19-2023 13:08-0500 Body height 172.72 cm No Primary Care Physician [facility] 12-19-2023 13:06-0500 Body mass index (BMI) [Ratio] 27.7 kg/m2 No Primary Care Physician [facility] 12-19-2023 13:06-0500 Body weight 82.66 kg No Primary Care Physician [facility] 12-19-2023 13:06-0500 Diastolic blood pressure 78 mm[Hg] No Primary Care Physician [facility] 12-19-2023 13:06-0500 Heart rate 81 /min No Primary Care Physician [facility] 12-19-2023 13:06-0500 Systolic blood pressure 122 mm[Hg] No Primary Care Physician [facility] 09-19-2023 09:00-0400 Body mass index (BMI) [Ratio] 28.6 kg/m2 No Primary Care Physician [facility] 09-19-2023 09:00-0400 Body weight 85.38 kg No Primary Care Physician [facility] 09-19-2023 09:00-0400 Diastolic blood pressure 76 mm[Hg] No Primary Care Physician [facility] 09-19-2023 09:00-0400 Systolic blood pressure 119 mm[Hg] No Primary Care Physician [facility] 06-14-2023 13:03-0400 Body height 172.72 cm No Primary Care Physician [facility] 06-14-2023 13:03-0400 Body mass index (BMI) [Ratio] 31.2 kg/m2 No Primary Care Physician [facility] 06-14-2023 13:03-0400 Body weight 93.21 kg No Primary Care Physician [facility] 06-14-2023 13:03-0400 Diastolic blood pressure 77 mm[Hg] No Primary Care Physician [facility] 06-14-2023 13:03-0400 Heart rate 68 /min No Primary Care Physician [facility] 06-14-2023 13:03-0400 Systolic blood pressure 118 mm[Hg] No Primary Care Physician [facility] 03-22-2023 12:00-0400 Body mass index (BMI) [Ratio] 32.8 kg/m2 No Primary Care Physician [facility] 03-22-2023 12:00-0400 Body weight 97.74 kg No Primary Care Physician [facility] 03-22-2023 12:00-0400 Diastolic blood pressure 81 mm[Hg] No Primary Care Physician [facility] 03-22-2023 12:00-0400 Heart rate 81 /min No Primary Care Physician [facility] 03-22-2023 12:00-0400 Systolic blood pressure 117 mm[Hg] No Primary Care Physician [facility] 12-28-2022 13:26-0500 Body height 172.72 cm No Primary Care Physician [facility] 12-28-2022 13:26-0500 Body mass index (BMI) [Ratio] 37.7 kg/m2 No Primary Care Physician [facility] 12-28-2022 13:26-0500 Body weight 112.54 kg No Primary Care Physician [facility] 12-28-2022 13:26-0500 Diastolic blood pressure 80 mm[Hg] No Primary Care Physician [facility] 12-28-2022 13:26-0500 Systolic blood pressure 129 mm[Hg] No Primary Care Physician [facility] 12-14-2022 13:42-0500 Body height 172.72 cm No Primary Care Physician [facility] 12-14-2022 13:37-0500 Body mass index (BMI) [Ratio] 38.5 kg/m2 No Primary Care Physician [facility] 12-14-2022 13:37-0500 Body weight 114.75 kg No Primary Care Physician [facility] 12-14-2022 13:37-0500 Diastolic blood pressure 90 mm[Hg] No Primary Care Physician [facility] 12-14-2022 13:37-0500 Systolic blood pressure 149 mm[Hg] No Primary Care Physician [facility] Encounters Encounter Date Encounter Type Care Provider Facility Start: 06-20-2025 ambulatory [facility] Facility :[facility] Start: 05-10-2025 End: 05-10-[address] Danisha Kelly MD -[facility] Work Phone: Start: 05-10-2025 End: 05-10-2025 ambulatory No Primary Care Physician [facility] Work Phone: Start: 04-26-2025 End: 04-26-2025 ambulatory No Primary Care Physician [facility] Work Phone: Start: 04-26-2025 End: 04-26-[address] Danisha Kelly MD -[facility] Work Phone: Start: 04-26-2025 End: 04-26-2025 ambulatory Danisha Kelly Facility:[facility] Start: 02-04-2025 End: 02-04-2025 ambulatory No Primary Care Physician [facility] Work Phone: Start: 02-04-2025 End: 02-04-[address] Danisha Kelly MD -Lab, [facility] Start: 02-04-2025 End: 02-04-2025 ambulatory Danisha Kelly Facility:[facility] Start: 12-28-2024 End: 12-28-[address] Danisha Kelly MD -Lab, [facility] Start: 12-28-2024 End: 12-28-2024 ambulatory No Primary Care Physician Facility:[facility] Start: 12-25-2024 End: 12-25-[address] Danisha Kelly MD -[facility] Work Phone: Start: 12-25-2024 End: 12-25-[address] Danisha Kelly MD [facility] Start: 12-25-2024 End: 12-25-2024 ambulatory No Primary Care Physician [facility] Start: 09-30-2024 End: 09-30-2024 ambulatory No Primary Care Physician Facility:[facility] Start: 06-26-2024 End: 06-26-2024 ambulatory No Primary Care Physician Facility:[facility] Start: 12-31-2023 End: 12-31-2023 ambulatory No Primary Care Physician [facility] Work Phone: Start: 12-31-2023 End: 12-31-2023 Patient encounter procedure No Primary Care Physician [facility]-Ultrasound[facility] Work Phone: Start: 12-19-2023 End: 12-19-2023 ambulatory No Primary Care Physician [facility] Work Phone: Start: 12-19-2023 End: 12-19-2023 Patient encounter procedure No Primary Care Physician [facility]-Laboratory, Specimen Work Phone: Start: 12-19-2023 End: 12-19-2023 Patient encounter procedure No Primary Care Physician [facility] Work Phone: Start: 09-19-2023 End: 09-19-2023 Patient encounter procedure No Primary Care Physician [facility] Work Phone: Start: 09-17-2023 End: 09-17-2023 Patient encounter procedure No Primary Care Physician [facility]-Laboratory Work Phone: Start: 06-20-2023 Non-patient / Non-visit No Primary Care Physician [facility] Start: 06-20-2023 End: 06-20-2023 ambulatory No Primary Care Physician [facility] Work Phone: Start: 06-20-2023 End: 06-20-2023 Patient encounter procedure No Primary Care Physician [facility]-Cardiov[facility]cul[facility] Services Work Phone: Start: 06-14-2023 End: 06-14-2023 Patient encounter procedure No Primary Care Physician [facility] Work Phone: Start: 03-22-2023 End: 03-22-2023 Patient encounter procedure No Primary Care Physician [facility] Work Phone: Start: 12-28-2022 End: 12-28-2022 Patient encounter procedure No Primary Care Physician [facility] Start: 12-21-2022 End: 12-21-2022 ambulatory No Primary Care Physician [facility] Work Phone: Start: 12-21-2022 End: 12-21-2022 Patient encounter procedure No Primary Care Physician [facility] Start: 12-14-2022 End: 12-14-2022 ambulatory No Primary Care Physician [facility] Work Phone: Start: 12-14-2022 End: 12-14-2022 Patient encounter procedure No Primary Care Physician [facility]-Laboratory, Specimen Start: 12-14-2022 End: 12-14-2022 Patient encounter procedure No Primary Care Physician [facility] Procedures Date Procedure Procedure Detail Performing Clinician Start: 04-26-2025 Pelvic echography No Primary Care Physician Start: 12-31-2023 Pelvic echography No Primary Care Physician Start: 12-31-2023 Transvaginal echography No Primary Care Physician Start: 12-19-2023 Genital Culture No Primary Care Physician Start: 12-19-2023 Investigation of transfusion reaction No Primary Care Physician H/O: surgery Status post bila teral salpingectomy No Primary Care Physician Plan of Treatment Date Care Activity Detail Author Electrocardiographic procedure [facility] Immunizations Immunization Date Immunization Notes Care Provider Fa cility 08-26-2024 influenza, seasonal, injectable, preservative free No Primary Care Physician [facility] 08-30-2023 influenza, injectabl e, quadrivalent, preservative free No Primary Care Physician [facility] 08-27-2022 influenza, injectabl e, quadrivalent, preservative free No Primary Care Physician [facility] 08-27-2022 influenza, seasonal, injectable No Primary Care Physician [facility] 04-13-2022 tetanus toxoid, redu bronson diphtheria toxoid, and acellular pertussis vaccine, adsorbed No Primary Care Physician [facility] Payers Date Payer Category Payer Self-pay [id number] 2024 Unknown [id number] Private Health Insurance [id number] Unknown [facility] [id number] Unknown [facility] [id number] Unknown [id number] Unknown [id number] Unknown [id number] Unknown [id number] Unknown [id number] Unknown [id number] Unknown [id number] Unknown [id number] Social History Date Type Detail Facility Start: 12-14-2022 End: 12-19-2023 Tobacco smoking status NHIS Unknown if ever smoked [facility] Start: 01-01-2019 Cigarettes [facility] Start: 1990 Sex Assigned At Female [facility] Start: 06-26-2024 End: 05-10-2025 Tobacco smoking status NHIS Ex-smoker (finding) [facility] Start: 02-14-2025 Sex Female (finding) [facility] Radiology Diagnostic study note 04-26-2025 Note Date & Type Note Facility 04-26-2025 Radiology Diagnostic study note [facility] Imaging Services [address] [place] [address] Pelvic w/ Transvaginal MR#: [id number] Acct: [id number] Name: AISHA VALENTE Rep #: [id number] : 1990 F 34 From: Kenyatta Murphy MD PCP: Care Physician,No Primary Status: REG CLI Study:Pelvic w/ Transvaginal Date of Exam: 04/26/25 Exam# [id number] Ordering Dr: Danisha Griffin MD PROCEDURE: PELVIC W/ TRANSVAGINAL 04/26/2025 REASON FOR EXAM: AUB TECHNIQUE: Transabdominal and transvaginal pelvic ultrasound. Color and spectral doppler analysis of the ovaries. COMPARISON: Pelvic ultrasound on 12/31/2019. FINDINGS: Measurements: Uterus: 7.4 x 3.7 x 5.9 cm for volume of 83.7 mL Endometrial Thickness: 0.4 cm Right Ovary: 2.0 x 1.6 x 1.7 cm for volume of 2.9 mL Left Ovary: 2.7 x 1.8 x 2.1 cm for volume of 5.1 mL Uterus: Retroverted. Normal contour and myometrial echotexture. Nabothian cysts at the cervix. There is a punctate calcification near the cervix, of doubtful clinical significance. Endometrium: Normal echotexture. Right ovary: Normal size and echotexture. Left ovary: Normal size and echotexture. Other adnexal findings: None. Cul-de-sac: No free intraperitoneal fluid identified. DOPPLER: Color Doppler: Normal color flow doppler signal at both ovaries. Spectral Doppler: Normal arterial inflow and venous outflow signal at both ovaries. US/Pelvic w/ Transvaginal IMPRESSION: NORMAL TRANSABDOMINAL AND TRANSVAGINAL PELVIC ULTRASOUND WITH DOPPLER. Reading Location: [id number] CC: Dr. Danisha Kelly MD; No Primary Care Physician ~ Stage Builder: Signed [facility] Evaluation note 12-25-2024 Note Date & Type Note Facility 12-25-2024 Evaluation note Diagnosis Onset Date Resolution Abnormal uterine bleeding acute December 25 8:02am Abnormal weight gain acute Serafin danii 2024 8:02am BMI 27.0-27.9,adult acute Janua ry 2024 8:02am BMI 28.0-28.9,adult acute Janua ry 2024 8:02am Other obesity acute November 8:02am Encounter for routine gynecological examination noneactive December 25 8:02am [facility] Work Phone: Clinical Note 12-14-2022 Note Date & Type Note Facility 12-14-2022 Note [facility] Pap Smear Specimen Adequacy December 14, 2022 4:00pm Comment . Satisfactory for evaluation. No endocervical component is identified. Comment on above: Satisfactory for maritza luation. No endocervical component is identified. Clinical Note 12-14-2022 Note Date & Type Note Facility 12-14-2022 Note [facility] Pap Smear Specimen Adequacy December 14, 2022 4:00pm Comment . Satisfactory for evaluation. No endocervical component is identified. Comment on above: Satisfactory for maritza luation. No endocervical component is identified. Evaluation note Note Date & Type Note Facility Evaluation note Diagnosis Onset Date BMI 40.0-44.9, adult acute Other obesity acute Encounter for routine gyneco logical examination noneactive [facility] Work Phone: Evaluation note Note Date & Type Note Facility Evaluation note Diagnosis Onset Date Abnormal uterine bleeding ac unga Other obesity acute BMI 32.0-32.9,adult resolved Abnormal uterine bleeding ac unga BMI 31.0-31.9,adult acute Heart murmur, systolic acute Other obesity acute [facility] Work Phone: Evaluation note Note Date & Type Note Facility Evaluation note Diagnosis Onset Date Abnormal uterine bleeding ac unga BMI 28.0-28.9,adult acute Other obesity acute BMI 31.0-31.9,adult resolved Abnormal uterine bleeding ac unga Abnormal weight gain acute BMI 27.0-27.9,adult acute BMI 28.0-28.9,adult acute Other obesity acute Postcoital bleeding acute Encounter for routine gyneco logical examination noneactive [facility] Work Phone: Evaluation note Note Date & Type Note Facility Evaluation note No assessment information availa ble [facility] Work Phone: Reason for referral (narrative) Note Date & Type Note Facility Reason for referral (narrative) No reason for referral information available [facility] Work Phone: Chief Complaint and Reason for Visit 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) Reason for Visit BMI 40.0-44.9, adult Other obesity Encounter for routine gynecological examination 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) weight check Reason for Visit BMI 40.0-44.9, adult Other obesity Encounter for routine gynecological examination Chief Complaint 3 mo weight manageme nt check 3 mo f/u MURMUR Reason for Visit Abnormal uterine ble eding Other obesity BMI 32.0-32.9,adult Abnormal uterine bleeding BMI 31.0-31.9,adult Heart murmur, systolic Other obesity Chief Complaint E-ORDER 2 M FU 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) Reason for Visit Abnormal uterine ble eding BMI 28.0-28.9,adult Other obesity BMI 31.0-31.9,adult Abnormal uterine bleeding Abnormal weight gain BMI 27.0-27.9,adult BMI 28.0-28.9,adult Other obesity Postcoital bleeding Encounter for routine gynecological examination Chief Complaint E-ORDER 2 M FU 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) AUB Reason for Visit Abnormal uterine ble eding BMI 28.0-28.9,adult Other obesity BMI 31.0-31.9,adult Abnormal uterine bleeding Abnormal weight gain BMI 27.0-27.9,adult BMI 28.0-28.9,adult Other obesity Postcoital bleeding Encounter for routine gynecological examination Chief Complaint Admit Date 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) December 25, 2024 8 :02am Reason for Visit Admit Date Abnormal uterine bleeding December 25, 2024 8:02am Abnormal weight gain December 25, 2024 8:02am BMI 27.0-27.9,adult December 25, 2024 8 :02am BMI 28.0-28.9,adult December 25, 2024 8 :02am Other obesity December 25, 2024 8 :02am Encounter for routine gynecological exam ination December 25, 2024 8:02am Chief Complaint Admit Date AUB April 26, 2025 4:16p m Chief Complaint Admit Date AUB April 26, 2025 4:16p m BP/HR/Weight Check May 10, 2025 8:01 am Advance Directives No Advanced Directives Records Found Advance Directive Response Recorded Date/ Time Living Will No May 09, 2021 4:23am Power of Manufacturing Engineering Technologist No May 09 4:23am Advance Directive Response Recorded Date/ Time Living Will No May 09, 2021 5:23am Power of Manufacturing Engineering Technologist No May 09 5:23am Advance Directive Response Recorded Date/ Time Living Will No June 23, 2024 8:39am Do you have a Healthcare Power of Manufacturing Engineering Technologist? No June 23, 2024 8:39am Summary Purpose Family History No Family History Records Found Additional Source Comments Care Teams (unrecognized sec tion and content) Team Status: Active Member Role Status Dates No Primary Care Physician Family Provider Active No Primary Care Physician Primary Care Provider Active Team Status: Inactive Member Role Status Dates No Primary Care Physician Primary Care Provider, Refer ring Provider Active Dr. Danisha Kelly MD Attending Provider Active Team Status: Inactive Member Role Status Dates No Primary Care Physician Primary Care Provider Active Dr. Danisha Kelly MD Attending Provider, Referr ing Provider Active Team Status: Active Member Role Status Dates No Primary Care Physician Primary Care Provider Active Dr. Danisha Kelly MD Attending Provider, Referr ing Provider Active Team Status: Active Member Role Status Dates No Primary Care Physician Primary Care Provider Active Dr. Tj Anton MD Attending Provider Active Team Status: Inactive Member Role Status Dates No Primary Care Physician Primary Care Provider Active Start: December 25, 2024 End: December 25, 2024 No Primary Care Physician Referring Provider Active Start: December 25, 2024 End: December 25, 2024 Dr. Danisha Kelly MD Attending Provider Active Start: December 25, 2024 End: December 25, 2024 Team Status: Inactive Member Role Status Dates No Primary Care Physician Primary Care Provider Active Start: December 28, 2024 End: December 28, 2024 Dr. Danisha Kelly MD Attending Provider Active Start: December 28, 2024 End: December 28, 2024 Dr. Danisha Kelly MD Referring Provider Active Start: December 28, 2024 End: December 28, 2024 Team Status: Inactive Member Role Status Dates No Primary Care Physician Primary Care Provider Active Start: February 04, 2025 End: February 04, 2025 Dr. Danisha Kelly MD Attending Provider Active Start: February 04, 2025 End: February 04, 2025 Dr. Danisha Kelly MD Referring Provider Active Start: February 04, 2025 End: February 04, 2025 Team Status: Active Member Role Status Dates No Primary Care Physician Primary Care Provider Active Team Status: Inactive Member Role Status Dates No Primary Care Physician Primary Care Provider Active Start: April 26, 2025 End: April 26, 2025 Dr. Danisha Kelly MD Attending Provider Active Start: April 26, 2025 End: April 26, 2025 Dr. Danisha Kelly MD Referring Provider Active Start: April 26, 2025 End: April 26, 2025 Team Status: Inactive Member Role Status Dates No Primary Care Physician Primary Care Provider Active Start: May 10, 2025 End: May 10, 2025 No Primary Care Physician Referring Provider Active Start: May 10, 2025 End: May 10, 2025 Dr. Danisha Kelly MD Attending Provider Active Start: May 10, 2025 End: May 10, 2025 Goals (unrecognized section and content) Goals may be documented in a n alternate sectionGoals may be documented in an alternate sectionGoals may be documented in an alternate sectionGoals may be documented in an alternate sectionGoals may be documented in an alternate sectionGoals may be documented in an alternate sectionGoals may be documented in an alternate sectionGoals may be documented in an alternate section INFORMATION SOURCE (unrecogn ized section and content) DATE CREATED AUTHOR 06/20/2025 [facility] FOR RECORDS PERTAINING TO PATIENTS WHO ARE OR HAVE BEEN ENROLLED IN A CHEMICAL DEPENDENCY/SUBSTANCEABUSE PROGRAM, SOME INFORMATION MAY BE OMITTED. This clinical summary was aggregated from multiple sources. Caution should be exercised in using it in the provision of clinical care. This summary normalizes information from multiple sources, and as a consequence, information in this document may materially change the coding, format and clinical context of patient data. In addition, data may be omitted in some cases. CLINICAL DECISIONS SHOULD BE BASED ON THE PRIMARY CLINICAL RECORDS. [email or web address] provides no warranty or guarantee of the accuracy or completeness of information in this document.
[2025-06-21 00:14] LABS: D-Dimer Quantitative (DVT/PE) < 0.27 FEU/ug/m (0.27-0.49)
--- NOTE | 2025-06-21 00:22 | EDS_ITS ---
HPI History of Present Illness Chief Complaint: Lower Extremity Injury Informant: patient Narrative Narrative: 34-year-old female presenting for 2 days of spontaneous onset pain and redness in her left medial calf. No recent injury. No systemic symptoms including fevers, chills, chest discomfort, dyspnea, syncope. Never had this before no history of DVT or PE but she is concerned it could be a DVT/blood clot. She takes control pills but is not a smoker. No recent long travel, immobilization, hospitalization. [id number] Medical History Kidney stone complicating Home Medications ?Medication ?Instructions ?Recorded ?Last Taken ?Type topiramate 25 mg tablet 50 mg (2 x 25 mg) PO BID #12 0 tabs 12/28/24 Unknown Rx Ashlyna 0.15 mg-30 mcg (84)/10 1 tab PO DAILY 84 days #91 tabs 04/29/25 Unknown Rx mcg(7) tablets,3 month dose pack (L norgest/e.estradiol-e.estrad) phentermine 37.5 mg tablet 37.5 mg PO QDAY #30 tabs Unknown Rx (Adipex-P) Allergy/AdvReac Type Severity Reaction Status Date / Time latex Allergy Swelling Verified 06/20/25 23:13 Penicillins Allergy Rash Verified 06/20/25 23:13 Surgical History Status post bilateral salpingectomy Previous section Social History Smoking Status: Former smoker alcohol intake: current substance use type: does not use caffeine: Yes what type of physical activity do you participate in: walking, aerobics and weight training frequency: 5-6 times per week seatbelt use: always do you feel safe at home: Yes additional social history: Kenneth- Patient works at [employer] ROS ED Constitutional Constitutional ED: Denies chills or fever(s) Musculoskeletal Musculoskeletal: Reports extremity pain; Denies neck pain Integumentary Reports rash; Denies Abrasions or wounds Neurologic Neurologic: Denies paresthesias or weakness EXAM Physical Exam Const Vital Signs: 06/20/25 23:12 Temperature 98.0 F Temperature Source Oral Pulse Rate 81 Respiratory Rate 16 Blood Pressure 150/90 H Blood Pressure Mean 110 Pulse Ox 100 Oxygen Delivery Method Room Air Positive well nourished and well developed General Appearance ED: well developed and NAD Neck full ROM and supple Resp normal respiratory effort Back/Spine normal ROM and normal to inspection Extremity full ROM Extremity Narrative: Left medial calf has some linear erythema, at the proximal aspect of it there is a mild small superficial palpable cord. This in his prior to the popliteal fossa and there is no abnormal findings or tenderness in the thigh. All compartments are soft and nondistended. There is no other areas of calf tenderness, it is just focal at this area of the cord and erythema. There is no obvious nidus for infection or any wounds, erythema starts in the calf and ends in the calf. There is no distal edema. The right leg is symmetric but without the erythema. There are a couple small areas of venous varicosities in both legs. 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 Clinically this is like a superficial venous thrombosis/thrombophlebitis. She was amenable to waiting for D-dimer which was done and negative, ruling out DVT and PE in this instance. Given appropriate discharge instructions for supportive care and home treatment of this and reasons to return and follow-up. She is comfortable with that plan. Lab Data Attestation: I reviewed the patient's lab results. Labs: Laboratory Results - last 24 hr 06/20/25 23:35 D-Dimer Quant (PE/DVT) < 0.27 L Discharge Plan Triage Chief Complaint: Lower Extremity Injury ED Provider: Vahid Serna Dx/Rx/DC Orders Clinical Impression: Thrombophlebitis of superficial veins of left lower extremity Instructions: ED Thrombophlebitis, Superficial Prescriptions: No Action topiramate 25 mg tablet 50 mg PO BID Qty: 120 12RF Rx Instructions: take before breakfast and before dinner phentermine [Adipex-P] 37.5 mg tablet 37.5 mg PO QDAY Qty: 30 2RF Rx Instructions: BMI 28 L norgest/e.estradiol-e.estrad [Ashlyna] 0.15 mg-30 mcg (84)/10 mcg (7) tablets,dose pack,3 month 1 tab PO DAILY 84 Days Qty: 91 4RF Rx Instructions: Active pills only for continuous cycling Primary Care Provider: Care Physician,No Primary Referrals: Doctor,Your [Non-Staff] - 1 Week if not improving Activity Restrictions/Additional Instructions: Warm compresses for 10-15 minutes at a time, 2 or 3 times throughout the day until resolved. Would also be reasonable to take a baby aspirin every day, when it is gone you can discontinue the aspirin if you desire. Print Language: Austrian Disposition Disposition: Home, Self Care
[2025-06-21 00:28] VITALS: BP 134/83; PULSE 68; RESP 14; TEMP 36.7; O2SAT 100
== END 2025-06-21 00:29 | disposition home or self-care (01) ==
PROVIDERS: Emergency Provider Emergency Medicine; Visit Provider Emergency Medicine
DX: M79.662 Pain in left lower leg (principal); Z79.818 Long term (current) use of other agents affecting estrogen receptors and estrogen levels; I80.02 Phlebitis and thrombophlebitis of superficial vessels of left lower extremity
CPT/HCPCS: 85379; 99282

== ENCOUNTER → 2025-07-12 | Outpatient (CLI) | payer OTHER, SELFPAY ==
[2025-07-12 12:57] LABS: Hematocrit 41.7 % (37-47); Hemoglobin 13.7 g/dL (12.0-15.0); Immature Granulocytes Count 0.020 X10^3/uL (0.0-0.0); Mean Corp Hgb Conc 32.9 g/dL (32-36); Mean Corpuscular Volume 87.1 fL (81-99); Mean Platelet Vol. 10.2 fl (6.2-12.0); NRBC Flagged by Analyzer 0 % (0-5); Platelet Count 288 K/mm3 (150-450); RBC Distribution Width CV 12.3 % (11.6-14.6); RBC Distribution Width SD 39.3 fl (35.1-43.9); Red Blood Count 4.79 M/mm3 (4.2-5.4); White Blood Count 7.7 K/mm3 (4.4-11.0)
== END | disposition home or self-care (01) ==
PROVIDERS: Referring Provider Obstetrics & Gynecology; Visit Provider Obstetrics & Gynecology
DX: E66.89 Other obesity not elsewhere classified (principal)
CPT/HCPCS: 36415; 84443; 85025; 87070; 87205